=== PATIENT | female | born 1955 | race African-American/Black ===

== ENCOUNTER 2016-09-24 15:00 | Inpatient (IN) ==
[2016-09-24] MEDS ORDERED: DILTIAZEM 50 MG/10 ML VIAL IV STA (15:19)
[2016-09-24] MEDS ORDERED: DILTIAZEM 100 MG VIAL.ADD IV ONE (15:22)
[2016-09-24] MEDS ORDERED: SODIUM CHLORIDE 0.9% 100 ML IV ONE (15:23)
[2016-09-24] MEDS ORDERED: SODIUM CHLORIDE 0.9% 1,000 ML IV STA (15:25)
[2016-09-24] MEDS ORDERED: DILTIAZEM 50 MG/10 ML VIAL IV ONE (15:29)
[2016-09-24] MEDS: DILTIAZEM INJ 100 MG in SODIUM CHLORIDE 0.9% 100 ML IV SCH (16:05)
[2016-09-24] MEDS ORDERED: ONDANSETRON 4 MG/2 ML VIAL IV PRN (16:36)
[2016-09-24] MEDS ORDERED: ZALEPLON 5 MG CAPSULE PO PRN (16:36)
[2016-09-24] MEDS ORDERED: GLUCAGON 1 MG VIAL IM PRN (16:36)
[2016-09-24] MEDS ORDERED: DEXTROSE 50% 25 GM/50 ML VIAL IV PRN (16:36)
--- NOTE | 2016-09-24 16:47 | Hospitalist History & Physical ---
Assessment and Plan (1) Palpitations Status: Acute Current Visit: No (2) Atrial fibrillation with rapid ventricular response Problem details: Chemically converted to NSR after receiving IV diltiazem. Supervisor [employer] consulted Status: Acute Assessment and plan: Currently on Cardizem infusion. Will continue with home medications. As per cardiology consult. Echocardiogram. Serial cardiac enzymes. Current Visit: No (3) Diabetes Status: Chronic Assessment and plan: Mild sliding scale insulin. Continue home medications. Current Visit: No Qualifiers: Diabetes mellitus type: type 2 (4) Diabetic nephropathy Status: Chronic Current Visit: No (5) Essential hypertension Problem details: Suboptimal but improving control Med dose adjustments as directed by consulting hot repairman Status: Chronic Assessment and plan: History of hypertension will continue antihypertensive medications. We will check TSH T4 level. Current Visit: No History of Present Illness Chief complaint: Shortness of breath, tachycardia History of present illness: Ms. Braga is a 61 year old female with history of hypertension diabetes who is followed by Dr. Barraza and primary care. The patient states that for the past 3-4 days she has not taken her minoxidil due to the side effects of increased hair growth. On today she noticed that she was started to feel hot and broke out in pulses with early earlier this afternoon. She states that her heart was racing and she could not breathe. She was not getting relief with sitting down resting. At that time she drove herself to the hospital for further evaluation. There she was found to be in atrial fibrillation with an RVR pattern. Patient was suddenly started on Cardizem infusion heart rate is continued to improve. She states she does not remember this ever happening before. Moreover, she mentions that last year she had a heart cath at [place] under Dr. Husain in preparation for a knee surgery. There is been no history of fevers or chills. No other changes in her medications other than discontinuing the minoxidil. Home Medications Medication Instructions Recorded Confirmed Type Carvedilol [Coreg] 25 mg PO BID #60 tablet 03/04/15 09/24/16 Rx Atorvastatin Calcium 20 mg PO QPM 09/24/16 09/24/16 History Furosemide Tab [Lasix Tab] 20 mg PO DAILY PRN 09/24/16 09/24/16 History Glimepiride 2 mg PO BID 09/24/16 09/24/16 History HYDROcodone/ACETAMIN 10-325 [[place] 1 tablet PO TID PRN 09/24/16 09/24/16 History 10-325] Insulin Degludec [Tresiba 50 unit SUBCUT DAILY 09/24/16 09/24/16 History Flextouch U-200] Linaclotide [Linzess] 145 mcg PO DAILY 09/24/16 09/24/16 History Liraglutide [Victoza 2-Tong] 6 units SUBCUT DAILY 09/24/16 09/24/16 History Potassium Chloride 10 meq PO DAILY 09/24/16 09/24/16 History amLODIPine [Norvasc] 5 mg PO DAILY 09/24/16 09/24/16 History predniSONE TAB [PredniSONE] 10 mg PO DAILY 09/24/16 09/24/16 History Allergies Allergy/AdvReac Type Severity Reaction Status Date / Time No Known Allergies Allergy Unverified 03/02/15 20:14 Medical,Surgical,& Family Hx - Medical History Cardio: History of: Cardiac Dysrhythmia (a fib (Feb 2015)), Hypertension No history of: CHF, CAD, [place], Pacemaker, PVD, Valvular Heart Disease, Cardiovascular Problems Neurology: History of: Peripheral Neuropathy Endocrine: History of: Diabetes Mellitus (IDDM), Diabetes Mellitus (NIDDM), Dyslipidemia Respiratory: History of: Pulmonary Embolism Musculoskeletal: History of: Back/Neck Problems - Surgical History Cardiac Surgeries: Sugical HX of: Cardiac Catheterization (Feb 2015 ([place])) Patient Denies: Femoral-Popliteal Bypass Graft, Cardiac Surgery, Carotid Endarterectomy, Internal Defibrillator, Vascular Access Devices Thoracic Surgeries: Patient denies;: Lobectomy Neurologic Surgeries: Patient denies: Neurologic Surgery HEENT Surgeries: Patient denies: Carotid Endarterectomy Abdominal Surgeries: Patient denies: Splenectomy Orthopedic Surgeries: Surgical HX of;: Orthopedic Surgery, Total Knee Replacement (2014) - Family History Family History: Reports;: Family Diabetes - Social History Smoking Status: Unknown if ever smoked Frequency of Alcohol Use: None Type of Drug Use: None - Constitutional Constitutional: Present: fatigue. Absent: anorexia, chills - EENT Nose, mouth and throat: Absent: dysphagia, epistaxis - Cardiovascular Cardiovascular: Absent: chest pain at rest - Respiratory Respiratory: Present: dyspnea. Absent: cough - Gastrointestinal Gastrointestinal: Absent: abdominal pain, bloating - Genitourinary Genitourinary: Absent: dysuria, flank pain - Musculoskeletal Musculoskeletal: Absent: arthralgias - Hematologic/Lymphatic Hematologic/Lymphatic: Absent: easy bleeding Exam - Constitutional Vitals: Period Temp Pulse Resp BP Sys/Wooten Pulse Ox Last 24 Hr 98.5 F-98.5 F 124-124 18-18 163-163/112-112 98 General appearance: normal weight - Head Head exam: Present: normal inspection - Eye Eye exam: Present: EOMI Pupils: Present: DEEPIKA - ENT ENT exam: Present: normal exam - Neck Neck exam: Present: normal inspection - Respiratory Respiratory exam: Present: clear to auscultation bilaterally - Cardiovascular Cardiovascular exam: Present: irregular rhythm, tachycardia - GI/Abdominal GI/Abdominal exam: Present: normal bowel sounds - Extremities Exam Extremities exam: Present: normal inspection - Neurological Exam Neurological exam: Present: alert, oriented X3 - Psychiatric Psychiatric exam: Present: normal affect, normal mood - Skin Skin exam: Present: normal color, dry
--- NOTE | 2016-09-24 16:56 | Emergency Department Note ---
Abdirahman Singer Brooke, am scribing for, and in the presence of, Salomon Emmanuel MD 15:21. Lien Singer Hans, MD, personally performed the services described in this documentation, ascribed by Stephanie Gary in my presence, and it is both accurate and complete 656 . 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 pt has new onset afib Mode of Arrival: Stretcher Limitations: No Limitations Source: Patient, EMS, RN Notes Reviewed Time Seen by Provider: 09/24/16 15:14 - History of Present Illness HPI Narrative: Patient is a 61 year old female brought into the ED by EMS, from [facility] , with c/o heart fluttering. Patient describes this as "when you exercise and your heart races." She says the fluttering started about four hours prior to arrival at [facility]. She has a history of afib. Patient denies having any pain but she says she has been short of breath. She says she had a heart cath done, here, last year but she is unable to recall the exact time. Patient says she had a blockage about seven years ago. She also has PMHx of HTN, peripheral neuropathy, dyslipidemia, diabetes, pulmonary embolism, and back/neck problems. Patient is not a smoker. She says her blood sugar was elevated to 335 and blood pressure was 225/125 this morning. Onset (ago): hour(s) (4) Allergies/Adverse Reactions: Allergies Allergy/AdvReac Type Severity Reaction Status Date / Time No Known Allergies Allergy Unverified 03/02/15 20:14 Home Medications: Home Medications Medication Instructions Recorded Confirmed Type Carvedilol [Coreg] 25 mg PO BID #60 tablet 03/04/15 09/24/16 Rx Atorvastatin Calcium 20 mg PO QPM 09/24/16 09/24/16 History Furosemide Tab [Lasix Tab] 20 mg PO DAILY PRN 09/24/16 09/24/16 History Glimepiride 2 mg PO BID 09/24/16 09/24/16 History HYDROcodone/ACETAMIN 10-325 [[place] 1 tablet PO TID PRN 09/24/16 09/24/16 History 10-325] Insulin Degludec [Tresiba 50 unit SUBCUT DAILY 09/24/16 09/24/16 History Flextouch U-200] Linaclotide [Linzess] 145 mcg PO DAILY 09/24/16 09/24/16 History Liraglutide [Victoza 2-Tong] 6 units SUBCUT DAILY 09/24/16 09/24/16 History Potassium Chloride 10 meq PO DAILY 09/24/16 09/24/16 History amLODIPine [Norvasc] 5 mg PO DAILY 09/24/16 09/24/16 History predniSONE TAB [PredniSONE] 10 mg PO DAILY 09/24/16 09/24/16 History Medical,Surgical,& Family Hx - Medical History Cardio: History of: Cardiac Dysrhythmia (a fib (Feb 2015)), Hypertension No history of: CHF, CAD, [place], Pacemaker, PVD, Valvular Heart Disease, Cardiovascular Problems Neurology: History of: Peripheral Neuropathy Endocrine: History of: Diabetes Mellitus (IDDM), Diabetes Mellitus (NIDDM), Dyslipidemia Respiratory: History of: Pulmonary Embolism Musculoskeletal: History of: Back/Neck Problems - Surgical History Cardiac Surgeries: Sugical HX of: Cardiac Catheterization (Feb 2015 ([place])) Patient Denies: Femoral-Popliteal Bypass Graft, Cardiac Surgery, Carotid Endarterectomy, Internal Defibrillator, Vascular Access Devices Thoracic Surgeries: Patient denies;: Lobectomy Neurologic Surgeries: Patient denies: Neurologic Surgery HEENT Surgeries: Patient denies: Carotid Endarterectomy Abdominal Surgeries: Patient denies: Splenectomy Orthopedic Surgeries: Surgical HX of;: Orthopedic Surgery, Total Knee Replacement (2014) - Family History Family History: Reports;: Family Diabetes - Social History Smoking Status: Unknown if ever smoked Frequency of Alcohol Use: None Type of Drug Use: None Exam Vital Signs: Vital Signs Temperature 98.5 F 09/24/16 15:05 Pulse Rate 124 H 09/24/16 15:05 Respiratory Rate 18 09/24/16 15:05 Blood Pressure 163/112 09/24/16 15:05 O2 Sat by Pulse Oximetry 98 09/24/16 15:05 - General General appearance: alert, in no apparent distress - Head Head exam: Present: atraumatic, normocephalic - Eye Eye exam: Present: normal appearance, PERRL, EOMI - ENT ENT exam: Present: normal exam - Neck Neck exam: Present: normal inspection - Chest Chest inspection: Present: normal inspection, symmetric chest wall rise - Respiratory Respiratory exam: Present: normal lung sounds bilaterally - Cardiovascular Cardiovascular exam: Present: regular rate, irregular rhythm, normal heart sounds - Abdominal Exam Abdominal exam: Present: soft. Absent: distention, tenderness - Extremities Exam Extremities exam: Present: normal inspection - Back Exam Back exam: Present: normal inspection - Neurological Exam Neurological exam: Present: alert, oriented X3 - Psychiatric Psychiatric exam: Present: normal affect, normal mood - Skin Skin exam: Present: warm, dry, intact, normal color Course Course Narrative: This patient was evaluated in the ER with a repeat set of cardiac enzymes which still have not been drawn yet. She had elevated d-dimer and troponin was mildly elevated outside hospital. I discussed her new onset A. fib with mild troponin and d-dimer elevation with hospitalist who agreed to come see her for admission. She was placed on a Cardizem infusion in the ER. She is hemodynamically stable. Disposition Clinical Impression: Atrial fibrillation, Palpitations Case discussed with: patient, patient's family Disposition: Still a Patient Condition: Stable Time of Disposition: 16:56
[2016-09-24] MEDS ORDERED: ENOXAPARIN 40 MG/0.4 ML SYRINGE SUBCUT SCH (17:00)
[2016-09-24 18:41] LABS: Basophils % 0.4 % (0.0-0.8); Eosinophils # 0.1 10*3/uL (0.0-0.87); Eosinophils % 0.7 % (0.00-10.9); Hematocrit 38.7 VOL% (35.7-47.0); Hemoglobin 13.2 GM/DL (12.0-16.0); Immature Granulocytes % 0.7 %; Immature Granulocytes Absolute 0.08 #; Lymphocytes # 2.2 10*3/uL (1.4-4.0); Lymphocytes % 19.9 % (21.3-54.2); Mean Corpuscular HGB Conc 34.1 GM/DL (32-36); Mean Corpuscular Hemoglobin 27 PG (27-34); Mean Corpuscular Volume 79.1 FL (87-102); Mean Platelet Volume 10.6 FL (9.6-12.0); Monocytes # 0.5 10*3/uL (0.11-0.8); Monocytes % 4.5 % (1.7-12.7); Neutrophils # 8.3 10*3/uL (1.4-7.4); Neutrophils % 73.8 % (38.7-73.9); Platelet Count 266 T/CUMM (130-400); Red Blood Count 4.89 MC/CUMM (3.8-5.5); Red Cell Distribution Width 13.6 % (9.3-17.3); White Blood Count 11.2 T/CUMM (4-12)
[2016-09-24 18:53] LABS: CKMB % 7.7 %
[2016-09-24 18:57] LABS: Troponin I Only 0.303 NG/ML (0.00-0.045)
[2016-09-24] MEDS ORDERED: ATORVASTATIN 20 MG TABLET PO SCH (19:00)
[2016-09-24 19:01] LABS: Calcium 9.6 MG/DL (8.5-10.1); Free T4 (Free Thyroxine) 1.22 NG/DL (0.76-1.46); Osmolality,Calculated 301.1 MOS/KG (273-304); Potassium 3.7 MMOL/L (3.5-5.1)
[2016-09-24] MEDS: CARVEDILOL 25 MG TABLET PO SCH (20:43)
[2016-09-24] MEDS: GLIMEPIRIDE 2 MG TABLET PO SCH (20:43)
[2016-09-24] MEDS: INSULIN REGULAR 100 UNIT/ML SUBCUT SCH (20:43)
[2016-09-24] MEDS: SODIUM CHLORIDE 0.45% 1,000 ML IV SCH (22:30)
[2016-09-25] MEDS: DILTIAZEM INJ 100 MG in SODIUM CHLORIDE 0.9% 100 ML IV SCH (02:12)
[2016-09-25 05:02] LABS: Basophils # 0.1 10*3/uL (0.0-0.2); Basophils % 0.5 % (0.0-0.8); Eosinophils # 0.2 10*3/uL (0.0-0.87); Eosinophils % 2.4 % (0.00-10.9); Hematocrit 35.6 VOL% (35.7-47.0); Hemoglobin 11.8 GM/DL (12.0-16.0); Immature Granulocytes % 0.4 %; Immature Granulocytes Absolute 0.04 #; Lymphocytes # 3.1 10*3/uL (1.4-4.0); Lymphocytes % 32.7 % (21.3-54.2); Mean Corpuscular HGB Conc 33.1 GM/DL (32-36); Mean Corpuscular Hemoglobin 26 PG (27-34); Mean Corpuscular Volume 78.9 FL (87-102); Mean Platelet Volume 10.8 FL (9.6-12.0); Monocytes # 0.7 10*3/uL (0.11-0.8); Monocytes % 7.9 % (1.7-12.7); Neutrophils # 5.2 10*3/uL (1.4-7.4); Neutrophils % 56.1 % (38.7-73.9); Platelet Count 247 T/CUMM (130-400); Red Blood Count 4.51 MC/CUMM (3.8-5.5); Red Cell Distribution Width 13.7 % (9.3-17.3); White Blood Count 9.3 T/CUMM (4-12)
[2016-09-25 05:36] LABS: Calcium 8.8 MG/DL (8.5-10.1); Osmolality,Calculated 294.8 MOS/KG (273-304); Potassium 3.6 MMOL/L (3.5-5.1)
[2016-09-25] MEDS: SODIUM CHLORIDE 0.45% 1,000 ML IV SCH (06:40)
[2016-09-25 08:15] VITALS: BP 187/95
[2016-09-25] MEDS: INSULIN REGULAR 100 UNIT/ML SUBCUT SCH (08:21)
[2016-09-25] MEDS ORDERED: NON-FORMULARY MEDICATION (Insulin Degludec [Tresiba Flextouch U-200] 50 UNIT) SUBCUT SCH (09:00)
[2016-09-25] MEDS ORDERED: amLODIPine 5 MG TABLET PO SCH (09:00)
[2016-09-25] MEDS: CARVEDILOL 25 MG TABLET PO SCH (09:00)
[2016-09-25] MEDS ORDERED: predniSONE 10 MG TABLET PO SCH (09:00)
[2016-09-25] MEDS: GLIMEPIRIDE 2 MG TABLET PO SCH (09:00)
[2016-09-25] MEDS ORDERED: LIRAGLUTIDE 6 UNIT SUBCUT SCH (09:00)
[2016-09-25] MEDS ORDERED: LINACLOTIDE 145 MCG CAPSULE PO SCH (09:00)
--- NOTE | 2016-09-25 10:30 | Cardiology Consult Note ---
Assessment and Plan (1) Atrial fibrillation with rapid ventricular response Problem details: Chemically converted to NSR after receiving IV diltiazem. Metal Drill Press Operator consulted Status: Resolved Assessment and plan: This is resolved at this point. Think chronic medical therapy be appropriate. Allergy to oral diltiazem. She may need other antiarrhythmic but we will leave this to Dr. Husain who has been following the patient. She should be to be discharged today. Current Visit: No (2) Essential hypertension Problem details: Suboptimal but improving control Med dose adjustments as directed by consulting air intercept controller supervisor Status: Chronic Assessment and plan: Patient blood pressure elevated but we need to restart her blood pressure medications. Current Visit: No (3) IDDM (insulin dependent diabetes mellitus) Status: Chronic Assessment and plan: Primary service is monitoring this and Dr. Barraza follows her as an outpatient. Current Visit: No (4) Paroxysmal a-fib Status: Chronic Assessment and plan: This is by history. Current Visit: No History of Present Illness - Data of Consult Patient: new to practice Consult date: 09/25/16 Requesting Physician: Gisele Villarreal Primary care physician: Abida Barraza - Consult Narrative Reason for consult: Atrial fibrillation with RVR History of present illness: Ms. Braga is a 61 year old female whose primary physician is Dr. Barraza and her primary air intercept controller supervisor is Dr. Husain. She states that Dr. Husain function for hypertension. Patient was admitted with palpitations found to have atrial fibrillation with RVR. There is only telemetry strips and no ECG. The patient denied any chest pain did feel short of breath. She is placed on diltiazem infusion is converted to sinus rhythm. She states recently been having a cough and probably a viral upper respiratory tract type infections. She has had shots including steroids antibiotics and other medication for congestion. She does not think that she has been on any decongestants. She denies any prior history of atrial fibrillation but prior cardiology notes from here a year ago indicates that she has a history of paroxysmal atrial fibrillation and in fact was admitted one time with bradycardia secondary to severe and acute hyperkalemia and acute renal sufficiency. She had a cardiac catheterization a year and a half ago because of some paroxysmal atrial fibrillation and chest discomfort and trivial increased troponin. Her catheterization did not reveal any obstructive coronary disease. She has a chronic a persistently minimally and not diagnostically increased troponin. Certainly previously and as well with this admission her troponin could be trivially increased because of her rapid ventricular response with atrial fibrillation. The patient at present is clinically stable. She did stop her minoxidil recently. Her blood pressure is elevated now. I think we can place the patient on some low-dose diltiazem with her present medical regimen but stop her amlodipine which is at 5 mg daily. She can keep her follow with Dr. Husain. CC: Gisele Villarreal MD - Home Medications and Allergies Home Medications: Home Medications Medication Instructions Recorded Confirmed Type Carvedilol [Coreg] 25 mg PO BID #60 tablet 03/04/15 09/24/16 Rx Atorvastatin Calcium 20 mg PO QPM 09/24/16 09/24/16 History Furosemide Tab [Lasix Tab] 20 mg PO DAILY PRN 09/24/16 09/24/16 History Glimepiride 2 mg PO BID 09/24/16 09/24/16 History HYDROcodone/ACETAMIN 10-325 [[place] 1 tablet PO TID PRN 09/24/16 09/24/16 History 10-325] Insulin Degludec [Tresiba 50 unit SUBCUT DAILY 09/24/16 09/24/16 History Flextouch U-200] Linaclotide [Linzess] 145 mcg PO DAILY 09/24/16 09/24/16 History Liraglutide [Victoza 2-Tong] 6 units SUBCUT DAILY 09/24/16 09/24/16 History Potassium Chloride 10 meq PO DAILY 09/24/16 09/24/16 History amLODIPine [Norvasc] 5 mg PO DAILY 09/24/16 09/24/16 History predniSONE TAB [PredniSONE] 10 mg PO DAILY 09/24/16 09/24/16 History Allergies/Adverse Reactions: Allergies Allergy/AdvReac Type Severity Reaction Status Date / Time No Known Allergies Allergy Unverified 03/02/15 20:14 Review of systems: Constitutional: Denies anorexia, chills, fatigue, fever, frequent falls, night sweats, weight gain, weight loss Eyes: Denies visual changes or loss of vision Ears: Denies decreased hearing, vertigo Nose, mouth and throat: Denies dysphagia, epistaxis, headaches, neck pain, tongue swelling, Neck: Denies thyromegaly or masses. No stiffness. Cardiovascular: as per HPI Respiratory: Complains of recent coughing and congestion. Denies dyspnea, hemoptysis, dyspnea on exertion, wheezing, snoring Gastrointestinal: Denies abdominal pain, constipation, dyspepsia, dysphagia, hematemesis, hematochezia, melena, nausea, vomiting Genitourinary: Denies dysuria, hematuria, nocturia Musculoskeletal: Denies arthralgias, joint swelling, muscle weakness, myalgias Neurological: denies abnormal gait, abnormal speech, confusion, convulsions, frequent falls, headaches, memory loss, syncope Psychiatric: Denies anxiety, confusion, depression Endocrine: Denies cold intolerance, fatigue, heat intolerance Hematologic/Lymphatic: Denies easy bleeding, easy bruising Dermatologic: Denies Rash, itching, shingles Medical,Surgical,& Family Hx - Medical History Cardio: History of: Cardiac Dysrhythmia (a fib (Feb 2015)), Hypertension No history of: CHF, CAD, [place], Pacemaker, PVD, Valvular Heart Disease, Cardiovascular Problems Neurology: History of: Peripheral Neuropathy Endocrine: History of: Diabetes Mellitus (IDDM), Diabetes Mellitus (NIDDM), Dyslipidemia Respiratory: History of: Pulmonary Embolism Musculoskeletal: History of: Back/Neck Problems - Surgical History Cardiac Surgeries: Sugical HX of: Cardiac Catheterization (Feb 2015 ([place])) Patient Denies: Femoral-Popliteal Bypass Graft, Cardiac Surgery, Carotid Endarterectomy, Internal Defibrillator, Vascular Access Devices Thoracic Surgeries: Patient denies;: Lobectomy Neurologic Surgeries: Patient denies: Neurologic Surgery HEENT Surgeries: Patient denies: Carotid Endarterectomy Abdominal Surgeries: Patient denies: Splenectomy Orthopedic Surgeries: Surgical HX of;: Orthopedic Surgery, Total Knee Replacement (2014) - Family History Family History: Reports;: Family Diabetes - Social History Smoking Status: Never smoker Frequency of Alcohol Use: None Type of Drug Use: None Physical Examination Vital Signs Temp Pulse Resp BP Pulse Ox 98.5 F 124 H 18 163/112 98 09/24/16 15:05 09/24/16 15:05 09/24/16 15:05 09/24/16 15:05 09/24/16 15:05 Other: General appearance: Obese, no acute distress Head exam: normal inspection, atraumatic Eye exam: Pupils are equal and reactive. EOMI. There is no trauma. Ear exam: Anatomically normal. Normal auditory acuity to conversation. Oral exam: No significant oral lesions. Neck exam: normal inspection no JVD. No carotid bruit. Trachea is in midline. Respiratory exam: clear to auscultation bilaterally posteriorly and anteriorly with good air movement. No rales, rhonchi or wheezes. Cardiovascular exam: regular rate and rhythm, no murmur or gallop or rub. No precordial lift. No bruits over the major arteries. Chest wall/torso: Anatomically normal. No tenderness, deformity Peripheral Pulses: 2+ throughout. GI/Abdominal exam: normal bowel sounds, soft and nontender, no abdominal bruits or pulsatile masses. Musculoskeletal/Extremities exam: normal inspection without edema or cyanosis. No deformities or trauma. Neurological exam: alert, oriented X3. There is no gross neurologic deficits. Psychiatric exam: normal affect, normal mood. Cognitive function is grossly intact. Skin exam: normal color, warm. No rashes or other skin lesions. Result/EKG - Labs CBC & BMP: 09/25/16 04:45 09/25/16 04:45 Lab Results: I have reviewed the past 24 hour labs Labs: Laboratory Results - last 24 hr 09/24/16 09/24/16 09/24/16 17:40 17:40 18:25 WBC 11.2 RBC 4.89 Hgb 13.2 Hct 38.7 MCV 79.1 L MCH 27 MCHC 34.1 RDW 13.6 Plt Count 266 MPV 10.6 Neut % (Auto) 73.8 Lymph % (Auto) 19.9 L [place] % (Auto) 4.5 Eos % (Auto) 0.7 Baso % (Auto) 0.4 Neut # (Auto) 8.3 H Lymph # (Auto) 2.2 [place] # (Auto) 0.5 Eos # (Auto) 0.1 Baso # (Auto) 0.0 Immature Gran % 0.7 Nucleated RBC % 0.0 Immature Gran # 0.08 Nucleated RBCs # 0.00 Sodium 142 Potassium 3.7 Chloride 107 Carbon Dioxide 22 Anion Gap 16.7 H BUN 38 H Creatinine 1.80 H GFR Calculation 42 BUN/Creatinine Ratio 21.00 H Glucose 272 H POC Glucose Calculated Osmolality 301.1 Calcium 9.6 Total Creatine Kinase 83 CK-MB (CK-2) 6.4 H CK and CKMB Interp 7.7 Troponin I 0.303 H Free T4 1.22 09/24/16 09/25/16 09/25/16 20:03 04:45 04:45 WBC 9.3 RBC 4.51 Hgb 11.8 L Hct 35.6 L MCV 78.9 L MCH 26 L MCHC 33.1 RDW 13.7 Plt Count 247 MPV 10.8 Neut % (Auto) 56.1 Lymph % (Auto) 32.7 [place] % (Auto) 7.9 Eos % (Auto) 2.4 Baso % (Auto) 0.5 Neut # (Auto) 5.2 Lymph # (Auto) 3.1 [place] # (Auto) 0.7 Eos # (Auto) 0.2 Baso # (Auto) 0.1 Immature Gran % 0.4 Nucleated RBC % 0.0 Immature Gran # 0.04 Nucleated RBCs # 0.00 Sodium 144 Potassium 3.6 Chloride 109 H Carbon Dioxide 25 Anion Gap 13.6 BUN 40 H Creatinine 1.70 H GFR Calculation 44 BUN/Creatinine Ratio 23.00 H Glucose 80 POC Glucose 243 H Calculated Osmolality 294.8 Calcium 8.8 Total Creatine Kinase CK-MB (CK-2) CK and CKMB Interp Troponin I Free T4 09/25/16 07:36 WBC RBC Hgb Hct MCV MCH MCHC RDW Plt Count MPV Neut % (Auto) Lymph % (Auto) [place] % (Auto) Eos % (Auto) Baso % (Auto) Neut # (Auto) Lymph # (Auto) [place] # (Auto) Eos # (Auto) Baso # (Auto) Immature Gran % Nucleated RBC % Immature Gran # Nucleated RBCs # Sodium Potassium Chloride Carbon Dioxide Anion Gap BUN Creatinine GFR Calculation BUN/Creatinine Ratio Glucose POC Glucose 71 L Calculated Osmolality Calcium Total Creatine Kinase CK-MB (CK-2) CK and CKMB Interp Troponin I Free T4 - Impressions Impressions: Admission telemetry revealed atrial fibrillation with rapid ventricular response. Her telemetry now reveals normal sinus rhythm.
--- NOTE | 2016-09-25 10:39 | Discharge Summary ---
Hospital Course - Hospital Course Hospital Course: Ms. Braga is a 61-year-old -[place] female with history of hypertension, A. fib and diabetes admitted by the hospitalist service on 2016 with A. fib with RVR. She was started on IV Cardizem and has converted. Cardiology was consulted and he added diltiazem to her regimen of low-dose beta- brina and Eliquis. Patient has seen Dr. Husain at [place] before but states she wants to change to [facility] since she is a Dr. Barraza patient. Patient will be discharged home with a one-week follow-up with Dr. Salas. Patient is requesting somebody who can do something about her abnormal rhythms. Patient's care was coordinated with Dr. Villarreal the hospitalist, Dr. Estes the cane packer , patient and nursing. Care coordination, chart review, and discharge paperwork took approximately 33 minutes. - Time spent with patient Time with patient DS: Greater than 30 minutes Discharge Plan - Discharge Data Disposition: Disch To Home/Self Care Condition at Discharge: Stable Discharge Diet: advance to your usual diet Activity: resume usual activities as tolerated Contact your physician if you experience:: Shortness of breath - Discharge Medications New Diltiazem Cd Cap [Cardizem CD] 180 mg PO DAILY #60 capsule Continue Carvedilol [Coreg] 25 mg PO BID #60 tablet Potassium Chloride 10 meq PO DAILY amLODIPine [Norvasc] 5 mg PO DAILY Linaclotide [Linzess] 145 mcg PO DAILY predniSONE TAB [PredniSONE] 10 mg PO DAILY Furosemide Tab [Lasix Tab] 20 mg PO DAILY PRN PRN Reason: FLUID Liraglutide [Victoza 2-Tong] 6 units SUBCUT DAILY Atorvastatin Calcium 20 mg PO QPM Insulin Degludec [Tresiba Flextouch U-200] 50 unit SUBCUT DAILY HYDROcodone/ACETAMIN 10-325 [[place] 10-325] 1 tablet PO TID PRN PRN Reason: Pain Glimepiride 2 mg PO BID - Follow Up or Referral Follow Up: Benjamin Salas MD [Physician] - 1 Week Abida Barraza M.D. [Physician] - 2 Weeks - Forms/Instructions Exam - Constitutional Vitals: Period Temp Pulse Resp BP Sys/Wooten Pulse Ox Last 24 Hr 96.7 F-99.2 F 75-132 16-20 140-187/83-115 96-99 Exam: 61-year-old -[place] female, no acute distress, alert and oriented Chest clear CV regular rate and rhythm Abdomen soft nontender Extremities no edema Discharge Results Procedures and tests throughout hospitalization: Pending Orders 09/24/16 15:19 VQ Scan [NM lung scan vent and per] Stat Labs on day of discharge: Labs from last 24 hours 09/25/16 09/25/16 09/25/16 07:36 04:45 04:45 WBC 9.3 RBC 4.51 Hgb 11.8 L Hct 35.6 L MCV 78.9 L MCH 26 L MCHC 33.1 RDW 13.7 Plt Count 247 MPV 10.8 Neut % (Auto) 56.1 Lymph % (Auto) 32.7 [place] % (Auto) 7.9 Eos % (Auto) 2.4 Baso % (Auto) 0.5 Neut # (Auto) 5.2 Lymph # (Auto) 3.1 [place] # (Auto) 0.7 Eos # (Auto) 0.2 Baso # (Auto) 0.1 Immature Gran % 0.4 Nucleated RBC % 0.0 Immature Gran # 0.04 Nucleated RBCs # 0.00 Sodium 144 Potassium 3.6 Chloride 109 H Carbon Dioxide 25 Anion Gap 13.6 BUN 40 H Creatinine 1.70 H GFR Calculation 44 BUN/Creatinine Ratio 23.00 H Glucose 80 POC Glucose 71 L Calculated Osmolality 294.8 Calcium 8.8 Total Creatine Kinase CK-MB (CK-2) CK and CKMB Interp Troponin I Free T4 09/24/16 09/24/16 09/24/16 20:03 18:25 17:40 WBC 11.2 RBC 4.89 Hgb 13.2 Hct 38.7 MCV 79.1 L MCH 27 MCHC 34.1 RDW 13.6 Plt Count 266 MPV 10.6 Neut % (Auto) 73.8 Lymph % (Auto) 19.9 L [place] % (Auto) 4.5 Eos % (Auto) 0.7 Baso % (Auto) 0.4 Neut # (Auto) 8.3 H Lymph # (Auto) 2.2 [place] # (Auto) 0.5 Eos # (Auto) 0.1 Baso # (Auto) 0.0 Immature Gran % 0.7 Nucleated RBC % 0.0 Immature Gran # 0.08 Nucleated RBCs # 0.00 Sodium 142 Potassium 3.7 Chloride 107 Carbon Dioxide 22 Anion Gap 16.7 H BUN 38 H Creatinine 1.80 H GFR Calculation 42 BUN/Creatinine Ratio 21.00 H Glucose 272 H POC Glucose 243 H Calculated Osmolality 301.1 Calcium 9.6 Total Creatine Kinase CK-MB (CK-2) CK and CKMB Interp Troponin I Free T4 1.22 09/24/16 17:40 WBC RBC Hgb Hct MCV MCH MCHC RDW Plt Count MPV Neut % (Auto) Lymph % (Auto) [place] % (Auto) Eos % (Auto) Baso % (Auto) Neut # (Auto) Lymph # (Auto) [place] # (Auto) Eos # (Auto) Baso # (Auto) Immature Gran % Nucleated RBC % Immature Gran # Nucleated RBCs # Sodium Potassium Chloride Carbon Dioxide Anion Gap BUN Creatinine GFR Calculation BUN/Creatinine Ratio Glucose POC Glucose Calculated Osmolality Calcium Total Creatine Kinase 83 CK-MB (CK-2) 6.4 H CK and CKMB Interp 7.7 Troponin I 0.303 H Free T4 DS: Provider Date of admission: 09/24/16 15:27 Primary care physician: . No PCP Attending physician on admission: Carlos Zafar Jr., MD Consults: 09/24/16 16:36 Consult to Physician [CONS] Routine Comment: afib with RVR Consulting Provider: Elmer Estes When should Consulting Provider be notified: Now Person Notified: EVELYNE Date Notified: 09/25/16 Time Notified: 08:27 09/24/16 19:18 Consult to [facility], Educator [CONS] Routine Reason for Asset Protection Assistant: Diabetes Education Consult to Pastoral Services [CONS] Routine Comment: Pastoral Screen: Request Cancer Spec Visit Pastoral Screen Source of Request: Patient Discharging clinician: AZUL Cline Expected date of discharge: 09/25/16
[2016-09-25] MEDS ORDERED: DILTIAZEM CD 180 MG CAPSULE PO SCH (11:00)
--- NOTE | 2016-09-25 16:45 | EKG Report ---
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
== END 2016-09-25 12:10 | disposition home or self-care (01) | DRG 310 ==
LOC: EDBD → EDUNIT# → N.ED 15:00 → SUATTDRO 15:27 → N.EDINP 15:49 → N.TELEN 16:00
PROVIDERS: ADMIT Internal Medicine Nephrology; ATTEND Internal Medicine

== ENCOUNTER 2016-11-10 21:50 | Observation (INO) ==
[2016-11-10] MEDS ORDERED: NITROGLYCERIN 2% OINT 1 INCH/GM PACK TOP STA (22:24)
[2016-11-10] MEDS ORDERED: METOPROLOL TARTRATE 5 MG/5 ML VIAL IV STA (22:25)
--- NOTE | 2016-11-10 22:28 | Emergency Department Note ---
Arrival - Arrival Chief Complaint: Arrhythmia/Palpitations Stated Complaint: Palpatations ED Nursing Triage Note: Pt transfer from [facility]. Mode of Arrival: Stretcher Limitations: No Limitations Source: Patient Time Seen by Provider: 11/10/16 22:23 - History of Present Illness HPI Narrative: This 61-year-old [place] female is referred from [facility] for evaluation of positive troponins in association with complaints of rapid heartbeat. The patient has a prior history of atrial fibrillation previously treated at this institution in September. The patient sensed return of this rhythm earlier today and for that reason went to [facility]. EKG at [place] revealed a sinus rhythm of 85 with evidence of an old anterior infarct and diffuse T-wave inversion. Patient was subsequently given Lovenox and Lasix and then transferred to this institution for further evaluation. Other notable lab revealed a proBNP of 2523. Currently the patient has only complaints of being hungry as she states she has not eaten all day. At no time did the patient have any complaints of chest pain, diaphoresis, nausea, vomiting, or shortness of breath Onset (ago): hour(s) (Patient presents 4 hours post onset of symptoms) Allergies/Adverse Reactions: Allergies Allergy/AdvReac Type Severity Reaction Status Date / Time losartan Allergy HIVES Unverified 11/10/16 22:01 Home Medications: Home Medications Medication Instructions Recorded Confirmed Type Carvedilol [Coreg] 25 mg PO BID #60 tablet 03/04/15 09/24/16 Rx Atorvastatin Calcium 20 mg PO QPM 09/24/16 09/24/16 History Furosemide Tab [Lasix Tab] 20 mg PO DAILY PRN 09/24/16 09/24/16 History Glimepiride 2 mg PO BID 09/24/16 09/24/16 History HYDROcodone/ACETAMIN 10-325 [[place] 1 tablet PO TID PRN 09/24/16 09/24/16 History 10-325] Insulin Degludec [Tresiba 50 unit SUBCUT DAILY 09/24/16 09/24/16 History Flextouch U-200] Linaclotide [Linzess] 145 mcg PO DAILY 09/24/16 09/24/16 History Liraglutide [Victoza 2-Tong] 6 units SUBCUT DAILY 09/24/16 09/24/16 History Potassium Chloride 10 meq PO DAILY 09/24/16 09/24/16 History amLODIPine [Norvasc] 5 mg PO DAILY 09/24/16 09/24/16 History predniSONE TAB [PredniSONE] 10 mg PO DAILY 09/24/16 09/24/16 History Diltiazem Cd Cap [Cardizem CD] 180 mg PO DAILY #60 capsule 09/25/16 Rx Review of System - Review of System 12 point system: reviewed and no additional remarkable complaints except as stated - Review of System Constitutional: Present: as per HPI Respiratory: Present: as per HPI Cardiovascular: Present: as per HPI Gastrointestinal: Present: as per HPI Medical,Surgical,& Family Hx - Medical History Cardio: History of: Cardiac Dysrhythmia (a fib (Feb 2015)), CHF, Hypertension No history of: CAD, [place], Pacemaker, PVD, Valvular Heart Disease, Cardiovascular Problems Neurology: History of: Peripheral Neuropathy Endocrine: History of: Diabetes Mellitus (IDDM), Diabetes Mellitus (NIDDM), Dyslipidemia Respiratory: History of: Pulmonary Embolism Musculoskeletal: History of: Back/Neck Problems - Surgical History Cardiac Surgeries: Sugical HX of: Cardiac Catheterization (Feb 2015 ([place])) Patient Denies: Femoral-Popliteal Bypass Graft, Cardiac Surgery, Carotid Endarterectomy, Internal Defibrillator, Vascular Access Devices Thoracic Surgeries: Patient denies;: Lobectomy Neurologic Surgeries: Patient denies: Neurologic Surgery HEENT Surgeries: Patient denies: Carotid Endarterectomy Abdominal Surgeries: Patient denies: Splenectomy Orthopedic Surgeries: Surgical HX of;: Orthopedic Surgery, Total Knee Replacement (2014) - Family History Family History: Reports;: Family Diabetes - Social History Smoking Status: Unknown if ever smoked Frequency of Alcohol Use: None Type of Drug Use: None Exam Physical Examination: GENERAL: Morbidly obese black female in no acute distress. HEENT: Normocephalic. No trauma. Moist mucous membranes. EOMI. PERRLA. ENT NML NECK: Supple. No adenopathy. CARDIAC: Regular. No murmurs. Heart rate 75 CHEST: Clear to auscultation. No respiratory distress. O2 sat 99% ABDOMEN: Soft. Nontender. Active bowel sounds. EXTREMITIES: No trauma. Normal ROM. No pedal edema. SKIN: No diaphoresis. No rash. NEURO: Alert. Neuro intact no focal deficits. Vital Signs: Vital Signs Temperature 97.6 F 11/10/16 21:56 Pulse Rate 83 11/10/16 21:56 Respiratory Rate 20 11/10/16 21:56 Blood Pressure 197/104 11/10/16 21:56 Course - Reevaluation(s) Reevaluation #1: Discussed with patient need to further define her cardiac situation - Consultations Consultation #1: Discussed with the hospitalist service who will admit for further evaluation. Results - Labs Labs: Initial results white blood cell count 8400 hematocrit 37 glucose 232 BUN 28 creatinine 2.0 sodium 144 potassium 4.3 CK total 95 MB total 3.7 proBNP 2523 troponin 0 0.4 - Impressions EKG: Sinus rhythm at 75 with evidence of old septal infarct as well as T-wave inversion inferolateral consistent with ischemia. Disposition Clinical Impression: Abnormal cardiac enzymes, Recent onset atrial fibrillation Case discussed with: patient Disposition: Still a Patient Condition: Guarded Time of Disposition: 22:47
[2016-11-10] MEDS ORDERED: METOPROLOL TARTRATE 5 MG/5 ML VIAL IV ONE (23:15)
[2016-11-10] MEDS ORDERED: NITROGLYCERIN 2% OINT 1 INCH/GM PACK TOP ONE (23:15)
[2016-11-10] MEDS ORDERED: DEXTROSE 50% 25 GM/50 ML SYRINGE IV PRN (23:31)
[2016-11-10] MEDS ORDERED: ONDANSETRON 4 MG/2 ML VIAL IV PRN (23:31)
[2016-11-10] MEDS ORDERED: GLUCAGON 1 MG VIAL IM PRN (23:31)
--- NOTE | 2016-11-10 23:43 | Hospitalist History & Physical ---
Assessment and Plan (1) Chronic kidney disease Status: Acute Current Visit: Yes (2) Palpitations Status: Acute Current Visit: No (3) Elevated troponin Status: Chronic Current Visit: No (4) IDDM (insulin dependent diabetes mellitus) Status: Chronic Current Visit: No (5) Paroxysmal a-fib Status: Chronic Assessment and plan: Our plan for this patient will be admitting her to telemetry. We will draw serial cardiac enzymes check fasting lipid profile and consult cardiology. Patient was given 100 mg of Lovenox at the outside facility. Patient is currently in sinus rhythm with stable vital signs. Patient has not complained of any shortness of breath or any chest pain. Current Visit: No History of Present Illness Chief complaint: Palpitations History of present illness: Ms. Braga is a 61 year old female with past medical history significant for diabetes hypertension atrial fibrillation and possible congestive heart failure she was in her normal state of health until today. Patient had sensation that her heart was beating very rapidly. She was not having chest pain she was not having shortness of breath she went to [facility]. There are an evaluation at [facility] and it was found that she had a bump in her troponins and was subsequently sent to our hospital for further evaluation. Home Medications Medication Instructions Recorded Confirmed Type Carvedilol [Coreg] 25 mg PO BID #60 tablet 03/04/15 09/24/16 Rx Atorvastatin Calcium 20 mg PO QPM 09/24/16 09/24/16 History Furosemide Tab [Lasix Tab] 20 mg PO DAILY PRN 09/24/16 09/24/16 History Glimepiride 2 mg PO BID 09/24/16 09/24/16 History HYDROcodone/ACETAMIN 10-325 [[place] 1 tablet PO TID PRN 09/24/16 09/24/16 History 10-325] Insulin Degludec [Tresiba 50 unit SUBCUT DAILY 09/24/16 09/24/16 History Flextouch U-200] Linaclotide [Linzess] 145 mcg PO DAILY 09/24/16 09/24/16 History Liraglutide [Victoza 2-Tong] 6 units SUBCUT DAILY 09/24/16 09/24/16 History Potassium Chloride 10 meq PO DAILY 09/24/16 09/24/16 History amLODIPine [Norvasc] 5 mg PO DAILY 09/24/16 09/24/16 History predniSONE TAB [PredniSONE] 10 mg PO DAILY 09/24/16 09/24/16 History Diltiazem Cd Cap [Cardizem CD] 180 mg PO DAILY #60 capsule 09/25/16 Rx Allergies Allergy/AdvReac Type Severity Reaction Status Date / Time losartan Allergy HIVES Unverified 11/10/16 22:01 Medical,Surgical,& Family Hx - Medical History Cardio: History of: Cardiac Dysrhythmia (a fib (Feb 2015)), CHF, Hypertension No history of: CAD, [place], Pacemaker, PVD, Valvular Heart Disease, Cardiovascular Problems Neurology: History of: Peripheral Neuropathy Endocrine: History of: Diabetes Mellitus (IDDM), Diabetes Mellitus (NIDDM), Dyslipidemia Respiratory: History of: Pulmonary Embolism Musculoskeletal: History of: Back/Neck Problems - Surgical History Cardiac Surgeries: Sugical HX of: Cardiac Catheterization (Feb 2015 ([place])) Patient Denies: Femoral-Popliteal Bypass Graft, Cardiac Surgery, Carotid Endarterectomy, Internal Defibrillator, Vascular Access Devices Thoracic Surgeries: Patient denies;: Lobectomy Neurologic Surgeries: Patient denies: Neurologic Surgery HEENT Surgeries: Patient denies: Carotid Endarterectomy Abdominal Surgeries: Patient denies: Splenectomy Orthopedic Surgeries: Surgical HX of;: Orthopedic Surgery, Total Knee Replacement (2014) - Family History Family History: Reports;: Family Diabetes - Social History Smoking Status: Unknown if ever smoked Frequency of Alcohol Use: None Type of Drug Use: None 12 point system: reviewed and no additional remarkable complaints except as stated Exam - Constitutional Vitals: Period Temp Pulse Resp BP Sys/Wooten Pulse Ox Last 24 Hr 97.6 F-97.6 F 83-83 20-20 197-197/104-104 General appearance: over weight - Head Head exam: Present: normal inspection - Eye Eye exam: Present: EOMI Pupils: Present: DEEPIKA - ENT ENT exam: Present: normal exam - Neck Neck exam: Present: normal inspection - Respiratory Respiratory exam: Present: clear to auscultation bilaterally - Cardiovascular Cardiovascular exam: Present: regular rate and rhythm - GI/Abdominal GI/Abdominal exam: Present: normal bowel sounds - Extremities Exam Extremities exam: Present: normal inspection, other (Mild edema in lower extremities) - Psychiatric Psychiatric exam: Present: normal affect - Skin Skin exam: Present: normal color Results - Labs Labs: Labs from outside facility displayed glucose 232 BUN 28 creatinine 2.0 calcium 9.5 serum sodium 144 potassium 4.3 chloride 108 bicarb 27 magnesium 1.7 pro BNP 2523 troponin I0.403 EKG at the outside facility displayed a sinus rhythm with Q waves noted in the anterior leads
[2016-11-11 00:15] LABS: Troponin I Only 0.369 NG/ML (0.00-0.045)
[2016-11-11] MEDS ORDERED: FUROSEMIDE 20 MG TABLET PO PRN (00:50)
[2016-11-11] MEDS: ACETAMINOPHEN 325 MG TABLET PO PRN (04:02)
[2016-11-11 04:46] LABS: Basophils # 0.1 10*3/uL (0.0-0.2); Basophils % 0.8 % (0.0-0.8); Eosinophils # 0.2 10*3/uL (0.0-0.87); Eosinophils % 2.5 % (0.00-10.9); Hematocrit 31.8 VOL% (35.7-47.0); Hemoglobin 10.9 GM/DL (12.0-16.0); Immature Granulocytes % 0.4 %; Immature Granulocytes Absolute 0.03 #; Lymphocytes # 2.8 10*3/uL (1.4-4.0); Lymphocytes % 34.8 % (21.3-54.2); Mean Corpuscular HGB Conc 34.3 GM/DL (32-36); Mean Corpuscular Hemoglobin 27 PG (27-34); Mean Corpuscular Volume 79.3 FL (87-102); Mean Platelet Volume 10.7 FL (9.6-12.0); Monocytes # 0.9 10*3/uL (0.11-0.8); Monocytes % 10.8 % (1.7-12.7); Neutrophils # 4.1 10*3/uL (1.4-7.4); Neutrophils % 50.7 % (38.7-73.9); Platelet Count 273 T/CUMM (130-400); Red Blood Count 4.01 MC/CUMM (3.8-5.5); Red Cell Distribution Width 13.7 % (9.3-17.3)
[2016-11-11 05:23] LABS: Alanine Aminotransferase 57 U/L (13-56); Albumin 2.8 G/DL (3.4-5.0); Alkaline Phosphatase 98 U/L (45-117); Aspartate Amino Transferase 41 U/L (0-37); Bilirubin,Total < 0.39 MG/DL (0.2-1.0); Blood Urea Nitrogen 27 MG/DL (7-18); Calcium 9.2 MG/DL (8.5-10.1); Glucose 124 MG/DL (74-106); Magnesium 1.8 MG/DL (1.8-2.4); Osmolality,Calculated 288.1 MOS/KG (273-304); Potassium 3.9 MMOL/L (3.5-5.1); Sodium 142 MMOL/L (136-145); Total Protein 5.6 G/DL (6.4-8.3)
[2016-11-11 05:28] LABS: Troponin I Only 0.364 NG/ML (0.00-0.045)
[2016-11-11 05:32] LABS: Risk Ratio 3.02; VLDL CHOLESTEROL 21.6 MG/DL
--- NOTE | 2016-11-11 06:20 | EKG Report ---
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
[2016-11-11] MEDS: INSULIN REGULAR 100 UNIT/ML SUBCUT SCH ×4 (08:07→22:02)
--- NOTE | 2016-11-11 11:13 | Hospitalist Progress Note ---
Assessment and Plan (1) Atrial fibrillation with rapid ventricular response Status: Resolved Current Visit: No (2) Elevated troponin Status: Acute Current Visit: No (3) Diabetes Status: Chronic Current Visit: Yes Qualifiers: Diabetes mellitus type: type 2 Diabetes mellitus complication status: with kidney complications Diabetes mellitus complication detail: with chronic kidney disease Diabetes mellitus retirement insulin use: without retirement use Chronic kidney disease stage: stage 3 (moderate) Qualified Code(s): E11.22 - Type 2 diabetes mellitus with diabetic chronic kidney disease; N18.3 - Chronic kidney disease, stage 3 (moderate) (4) Hypertension Status: Chronic Current Visit: No Qualifiers: Hypertension type: essential hypertension Qualified Code(s): I10 - Essential (primary) hypertension (5) Paroxysmal a-fib Status: Chronic Current Visit: No (6) Chronic kidney disease Status: Chronic Current Visit: Yes Qualifiers: Chronic kidney disease stage: stage 3 (moderate) Qualified Code(s): N18.3 - Chronic kidney disease, stage 3 (moderate) Hospitalist: Subjective Interval history: Patient seen and examined. No acute events overnight. Case discussed with nursing staff. Labs reviewed. Patient was admitted overnight with a recurrent paroxysmal atrial fibrillation and palpitations. She is awaiting cardiology consult. Symptoms have resolved. Previous admission one month ago reviewed. The patient reports her Cardizem dose was doubled to 360 mg twice daily by her primary care physician approximately 2 weeks ago. Exam - Constitutional Vitals: Period Temp Pulse Resp BP Sys/Wooten Pulse Ox Last 24 Hr 97.5 F-98.4 F 76-83 16-20 158-197/97-106 94-100 Exam: Constitutional System: No distress. No tremulousness. Head: Normocephalic, atraumatic. Ears, Nose and Throat System: No pain or tenderness. No epistaxis or discharge Eyes System: Pupils equal, round, and reactive. Extraocular muscles intact. Neck: Supple, without adenopathy, No jugular venous distention. No thyromegaly, neck mass, or prior surgery apparent. Respiratory System: Chest clear to auscultation. Cardiovascular System: Heart with regular rate and rhythm. No murmur. GI System: Abdomen soft, nontender. Normo active bowel sounds present. Musculoskeletal System: limbs with no pedal edema. Full distal pulses. Neurological System: No discernable sensory deficit. No aphasia Psychiatric System: Conversation is rational Results - Labs CBC & BMP: 11/11/16 03:55 11/11/16 03:55 Lab Results: I have reviewed the past 24 hour labs
[2016-11-11] MEDS: APIXABAN 5 MG TABLET PO SCH ×2 (14:46→22:00)
[2016-11-11] MEDS: POTASSIUM CHLORIDE 10 MEQ TABLET PO SCH (14:46)
[2016-11-11] MEDS: hydrALAZINE 25 MG TABLET PO SCH (14:47)
[2016-11-11] MEDS: PANTOPRAZOLE 40 MG TABLET PO SCH (14:47)
[2016-11-11] MEDS: DILTIAZEM CD 180 MG CAPSULE PO SCH (14:48)
[2016-11-11] MEDS: MINOXIDIL 2.5 MG TABLET PO SCH ×2 (14:48→22:02)
[2016-11-11] MEDS: CARVEDILOL 25 MG TABLET PO SCH ×2 (14:48→16:23)
[2016-11-11] MEDS: LINACLOTIDE 145 MCG CAPSULE PO SCH (14:49)
--- NOTE | 2016-11-11 17:24 | Cardiology Consult Note ---
Chaim Singer Vanessa, RN, am scribing for, and in the presence of, Marjan Gray MD 17:23. Assessment and Plan - Time spent with patient Time spent with patient: Greater than 30 minutes (Due to assessment, planning, documentation, medication review) (1) Atrial fibrillation Status: Chronic Assessment and plan: SEE PLAN OF CARE LISTED BELOW. Current Visit: No Qualifiers: Atrial fibrillation type: paroxysmal Qualified Code(s): I48.0 - Paroxysmal atrial fibrillation (2) DJD (degenerative joint disease) Problem details: h/o TKR ? IVC filter placement prior to TKR procedure [facility] Status: Chronic Assessment and plan: SEE PLAN OF CARE LISTED BELOW. Current Visit: No (3) Diabetes Status: Chronic Assessment and plan: SEE PLAN OF CARE LISTED BELOW. Current Visit: Yes Qualifiers: Diabetes mellitus type: type 2 Diabetes mellitus complication status: with kidney complications Diabetes mellitus complication detail: with chronic kidney disease Diabetes mellitus superintendent terminal insulin use: without mcfp use Chronic kidney disease stage: stage 3 (moderate) Qualified Code(s): E11.22 - Type 2 diabetes mellitus with diabetic chronic kidney disease; N18.3 - Chronic kidney disease, stage 3 (moderate) (4) Hypertension Status: Chronic Assessment and plan: SEE PLAN OF CARE LISTED BELOW. Current Visit: No Qualifiers: Hypertension type: essential hypertension Qualified Code(s): I10 - Essential (primary) hypertension (5) Hyperlipidemia Status: Chronic Assessment and plan: SEE PLAN OF CARE LISTED BELOW. Current Visit: Yes (6) CKD (chronic kidney disease) stage 3, GFR 30-59 ml/min Status: Chronic Assessment and plan: SEE PLAN OF CARE LISTED BELOW. 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 HATFIELD ([place]) Ms. Braga is a 61 year old black female who has been previously evaluated by Dr. Arreola but has more recently been following with Dr. Hatfield at [facility]. She has risk factors significant for: hypertension, diabetes, hyperlipidemia, morbid obesity. Past medical history includes paroxysmal atrial fibrillation, pulmonary embolism, sleep apnea, chronic kidney disease, GERD. Patient has had previous cardiac catheterization in February 2015 after new onset of paroxysmal atrial fib with some associated chest discomfort and mild increase in cardiac biomarkers. EKG was abnormal with ST-T changes. Cardiac cath revealed no significant obstructive coronary artery disease, and LV EF was greater than 65%. Cardiac enzyme and EKG abnormality most likely secondary to atrial fibrillation, hypertension, LVH. Ms. Braga was recently admitted to [facility] telemetry unit on September 24 for observation after an episode of atrial fibrillation with RVR. She received IV Cardizem and converted to sinus rhythm. Patient admitted to recently having taken steroids, antibiotics, and possible decongestant for upper respiratory infection. During admission, she was evaluated by Dr. Estes and had echo demonstrating moderate LVH , mild diastolic dysfunction, normal systolic function, EF 65%, mild MR and pulmonary hypertension with PA pressure 35-40 mmHg. Of note, when patient was discharged from [facility] in September 2016, it was noted that she requested to change her primary medical lab technician from Dr. Hatfield to [facility] cardiology. Speaking with her today, she was not given an appointment but does request for Dr. Gray to be her primary medical lab technician now. [facility] for further evaluation of "heart racing." She initially presented to [facility] ER complaining of her heart racing since earlier that morning, reported that it made her feel "shaky and nervous," but she did not have associated shortness of breath, chest tightness, nausea, vomiting, presyncope, or other. BP was also elevated, 205/100. EKG revealed atrial fibrillation with rapid ventricular response rate in the 130s. Reportedly had elevated BNP of greater than 2500 at [facility] ER. She received IV Lasix and subcutaneous Lovenox prior to transfer. Her BNP was 440 upon recheck in [facility] ER. EKGs and telemetry monitoring has demonstrated sinus rhythm. BP was 197/104 while in ER at any, and she received Lopressor 5 mg IVP. Admitted per hospital medicine for observation, and cardiology asked to see for further evaluation of paroxsymal atrial fibrillation. This morning, Ms. Braga is resting comfortably in her room. She is lying flat in bed, and she is not in any respiratory distress. She has not had any chest pain, dyspnea, or other complaint. Patient's biggest complaint this morning is that she is hungry. In speaking with her, patient reports seeing her PCP Dr. Ledesma approximately 1 week ago for I&D of boil on right buttock. While at this visit, she was told to increase her Cardizem dosage to twice daily (for a total of 360 mg Q day) because her blood pressure "was all out of whack." She reports medication compliance. Denies recent cough, fever, chills. No orthopnea, PND, significant lower extremity edema. Review of old clinic records notes at her last appointment with Dr. Arreola, she was to be set up for sleep medicine evaluation and polysymnograpy. Patient reports she has never completed this due to insurance not covering it. Labs reviewed. Electrolytes within normal limits. Creatinine is 1.7 (appears to be baseline). Cell counts unremarkable. Troponin level peaked at 0.369. ASSESSMENT/PLAN: 1. ATRIAL FIBRILLATION - Paroxsymal; She has not required IV Cardizem and has maintained normal sinus rhythm since arriving to [facility] Anticoagulated with Eliquis for stroke prevention. 2. ELEVATED BNP - Received IV Lasix at [facility] ER. Reports frequent urine output and feeling overall better. 3. HYPERTENSION - Significant hypertensive upon presentation and was given IV Lopressor. Home medications have been resumed. Patient reports compliance with her medicines including minoxidil. 4. DIABETES - Continue current plan of care. 5. HYPERLIPIDEMIA - FLP this morning unremarkable. Continue atorvastatin. 6. SLEEP APNEA - Untreated. Most certainly can contribute to recurrence of atrial fibrillation. 7. GERD - PPI continued. 8. DEGENERATIVE JOINT DISEASE - She follows routinely with pain clinic at [place]. CC: Betzaida Bah MD - Home Medications and Allergies Home Medications: Home Medications Medication Instructions Recorded Confirmed Type Carvedilol [Coreg] 25 mg PO BID #60 tablet 03/04/15 11/11/16 Rx Atorvastatin Calcium 20 mg PO QPM 09/24/16 11/11/16 History Furosemide Tab [Lasix Tab] 20 mg PO DAILY PRN 09/24/16 11/11/16 History Glimepiride 2 mg PO BID 09/24/16 11/11/16 History HYDROcodone/ACETAMIN 10-325 [[place] 1 tablet PO TID 09/24/16 11/11/16 History 10-325] Insulin Degludec [Tresiba 50 unit SUBCUT DAILY 09/24/16 11/11/16 History Flextouch U-200] Linaclotide [Linzess] 145 mcg PO DAILY 09/24/16 11/11/16 History Potassium Chloride 10 meq PO DAILY 09/24/16 11/11/16 History Diltiazem Cd Cap [Cardizem CD] 180 mg PO DAILY #60 capsule 09/25/16 11/11/16 Rx Apixaban [Eliquis] 5 mg PO BID 11/11/16 11/11/16 History Minoxidil 2.5 mg PO BID 11/11/16 11/11/16 History hydrALAZINE TAB [Apresoline Tab] 25 mg PO DAILY 11/11/16 11/11/16 History Allergies/Adverse Reactions: Allergies Allergy/AdvReac Type Severity Reaction Status Date / Time losartan Allergy HIVES Verified 11/11/16 00:11 - Constitutional Constitutional: Present: daytime sleepiness, fatigue. Absent: anorexia, chills , excessive sweating, fever(s), frequent falls, lethargy, weakness, weight gain , weight loss - EENT Eyes: Absent: blurry vision, loss of vision Ears: Absent: decreased hearing Nose, mouth and throat: Present: dysphagia. Absent: epistaxis, lip swelling, nasal congestion, sore throat, throat swelling, tongue swelling, vertigo - Cardiovascular Cardiovascular: Present: palpitations. Absent: chest pain at rest, chest pain with activity, diaphoresis, dyspnea on exertion, radiating jaw, neck or arm pain , lightheadedness, orthopnea, PND - Respiratory Respiratory: Absent: cough, hemoptysis, dyspnea on exertion, change in phlegm color - Gastrointestinal Gastrointestinal: Present: dysphagia, heartburn. Absent: abdominal pain, constipation, diarrhea, hematemesis, hematochezia, melena, nausea, vomiting, jaundice - Genitourinary Genitourinary: Absent: abnormal vaginal bleeding, dysuria, flank pain, hematuria - Musculoskeletal Musculoskeletal: Present: arthralgias, back pain, myalgias. Absent: limited range of motion - Neurological Neurological: Absent: abnormal gait, confusion, dizziness, syncope, tremor(s) - Psychiatric Psychiatric: Absent: anxiety, depression - Endocrine Endocrine: Absent: cold intolerance, heat intolerance - Hematologic/Lymphatic Hematologic/Lymphatic: Absent: easy bleeding, easy bruising Medical,Surgical,& Family Hx - Medical History Cardio: History of: Cardiac Dysrhythmia (a fib (Feb 2015)), CHF, Hypertension No history of: CAD, CO, Pacemaker, PVD, Valvular Heart Disease, Cardiovascular Problems Psychological: No history of: Anxiety Disorders, Depression Neurology: History of: Peripheral Neuropathy Endocrine: History of: Diabetes Mellitus (IDDM), Diabetes Mellitus (NIDDM), Dyslipidemia No history of: Thyroid Disorder Rheumatology: History of;: Rheumatoid Arthritis Respiratory: History of: Pulmonary Hypertension No history of: COPD Renal: History of: Renal Problems (CRI) Genitourinary: History of: Kidney Stones Gastrointestinal: History of: GERD No history of: Gastrointestinal Bleed, Hematochezia, Hepatitis, Liver Problems, Pancreatitis Musculoskeletal: History of: Back/Neck Problems (fusion) Hematology: No history of: Anemia, Blood Transfusion Reaction, Bleeding Problems - Surgical History Cardiac Surgeries: Sugical HX of: Cardiac Catheterization (Feb 2015 ([place])) Patient Denies: Femoral-Popliteal Bypass Graft, Cardiac Surgery, Carotid Endarterectomy, Internal Defibrillator, Vascular Access Devices Thoracic Surgeries: Patient denies;: Lobectomy Neurologic Surgeries: Patient denies: Neurologic Surgery HEENT Surgeries: Patient denies: Carotid Endarterectomy Abdominal Surgeries: Surgical HX of: Cholecystectomy Patient denies: Splenectomy Orthopedic Surgeries: Surgical HX of;: Orthopedic Surgery, Total Knee Replacement (2014) - Family History Family History: Reports;: Family Cancer (sister (bone)), Family Diabetes, Family Hypertension (father) - Social History Smoking Status: Never smoker Frequency of Alcohol Use: None Type of Drug Use: None Marital Status: Lives With:: Alone Functional capacity: independent ambulation Physical Examination Vital Signs Temp Pulse Resp BP 97.6 F 83 20 197/104 11/10/16 21:56 11/10/16 21:56 11/10/16 21:56 11/10/16 21:56 General: Present: No Apparent Distress, Other (overweight) HEENT: Present: PERRL, Normocephaly. Absent: Jaundice, Pallor Neck: Present: Supple Neck, Midline Trachea, No JVD/HJR, No Masses, No Bruit Cardiac: Present: Reg Rate and Rhythm, No Murmur. Absent: Tachycardia, Bradycardia Lungs: Present: Normal Exam, Clear Ascult./Percussion, No Wheeze, Rales, Rhonchi. Absent: Oxygen Neuro: Present: Grossly Intact. Absent: Tingling, Weakness, Resting Tremor, Essential Tremor Abdomen: Present: Soft, Active Bowel Sounds, No Masses, No Pulsations/Bruits, Other (obese). Absent: Ascites, Tender, Firm Skin: Present: Clear. Absent: Rash, Suspicious Lesions, Bruising Musculoskeletal: Present: No Fluid Collection, Normal Range of Motion Extremities: Present: No Clubbing, No Cyanosis, Normal Upper Extr. Pulses (3+ bilaterally), Normal Lower Extr. Pulses (2+ bilaterally), Bilateral Pedal Edema (trace), Capillary Refill (normal), Other (warm, dry) Result/EKG - Labs CBC & BMP: 11/11/16 03:55 11/11/16 03:55 Lab Results: I have reviewed the past 24 hour labs Labs: Laboratory Results - last 24 hr 11/10/16 11/11/16 11/11/16 23:18 01:09 03:55 WBC RBC Hgb Hct MCV MCH MCHC RDW Plt Count MPV Neut % (Auto) Lymph % (Auto) [place] % (Auto) Eos % (Auto) Baso % (Auto) Neut # (Auto) Lymph # (Auto) [place] # (Auto) Eos # (Auto) Baso # (Auto) Immature Gran % Nucleated RBC % Immature Gran # Nucleated RBCs # Immature Plt Fraction Sodium Potassium Chloride Carbon Dioxide Anion Gap BUN Creatinine GFR Calculation BUN/Creatinine Ratio Glucose POC Glucose 105 Hemoglobin A1c Calculated Osmolality Calcium Magnesium Total Bilirubin AST ALT Alkaline Phosphatase Total Creatine Kinase 107 83 D CK-MB (CK-2) 4.5 H 4.9 H Troponin I 0.369 H 0.364 H B-Natriuretic Peptide Total Protein Albumin Globulin Albumin/Globulin Ratio Triglycerides Cholesterol LDL Cholesterol VLDL Cholesterol HDL Cholesterol Heart Disease Risk Ratio 11/11/16 11/11/16 11/11/16 03:55 03:55 03:55 WBC 8.0 RBC 4.01 Hgb 10.9 L Hct 31.8 L MCV 79.3 L MCH 27 MCHC 34.3 RDW 13.7 Plt Count 273 MPV 10.7 Neut % (Auto) 50.7 Lymph % (Auto) 34.8 [place] % (Auto) 10.8 Eos % (Auto) 2.5 Baso % (Auto) 0.8 Neut # (Auto) 4.1 Lymph # (Auto) 2.8 [place] # (Auto) 0.9 H Eos # (Auto) 0.2 Baso # (Auto) 0.1 Immature Gran % 0.4 Nucleated RBC % 0.0 Immature Gran # 0.03 Nucleated RBCs # 0.00 Immature Plt Fraction 0.0 Sodium 142 Potassium 3.9 Chloride 108 H Carbon Dioxide 29 Anion Gap 8.9 BUN 27 H Creatinine 1.70 H GFR Calculation 44 BUN/Creatinine Ratio 15.00 Glucose 124 H POC Glucose Hemoglobin A1c Calculated Osmolality 288.1 Calcium 9.2 Magnesium 1.8 Total Bilirubin < 0.39 AST 41 H ALT 57 H Alkaline Phosphatase 98 Total Creatine Kinase CK-MB (CK-2) Troponin I B-Natriuretic Peptide 442 H Total Protein 5.6 L Albumin 2.8 L Globulin 2.8 Albumin/Globulin Ratio 1.0 L Triglycerides Cholesterol LDL Cholesterol VLDL Cholesterol HDL Cholesterol Heart Disease Risk Ratio 11/11/16 11/11/16 11/11/16 03:55 03:55 07:17 WBC RBC Hgb Hct MCV MCH MCHC RDW Plt Count MPV Neut % (Auto) Lymph % (Auto) [place] % (Auto) Eos % (Auto) Baso % (Auto) Neut # (Auto) Lymph # (Auto) [place] # (Auto) Eos # (Auto) Baso # (Auto) Immature Gran % Nucleated RBC % Immature Gran # Nucleated RBCs # Immature Plt Fraction Sodium Potassium Chloride Carbon Dioxide Anion Gap BUN Creatinine GFR Calculation BUN/Creatinine Ratio Glucose POC Glucose 118 H Hemoglobin A1c 9.1 H Calculated Osmolality Calcium Magnesium Total Bilirubin AST ALT Alkaline Phosphatase Total Creatine Kinase CK-MB (CK-2) Troponin I B-Natriuretic Peptide Total Protein Albumin Globulin Albumin/Globulin Ratio Triglycerides 108 Cholesterol 178 LDL Cholesterol 93.0 VLDL Cholesterol 21.6 HDL Cholesterol 59 Heart Disease Risk Ratio 3.02 - EKG EKG results: interpreted by me, no acute changes EKG shows: sinus rhythm IIsaac Jennifer, MD, personally performed the services described in this documentation, ascribed by María Rucker RN in my presence, and it is both accurate and complete 723 .
[2016-11-11] MEDS ORDERED: ATORVASTATIN 20 MG TABLET PO SCH (21:00)
[2016-11-12 05:18] LABS: Basophils # 0.1 10*3/uL (0.0-0.2); Basophils % 0.8 % (0.0-0.8); Eosinophils # 0.2 10*3/uL (0.0-0.87); Eosinophils % 3.3 % (0.00-10.9); Hematocrit 33.2 VOL% (35.7-47.0); Hemoglobin 11.3 GM/DL (12.0-16.0); Immature Granulocytes % 0.3 %; Immature Granulocytes Absolute 0.02 #; Lymphocytes # 2.3 10*3/uL (1.4-4.0); Lymphocytes % 36.2 % (21.3-54.2); Mean Corpuscular Hemoglobin 27 PG (27-34); Mean Corpuscular Volume 79.6 FL (87-102); Mean Platelet Volume 10.2 FL (9.6-12.0); Monocytes # 0.8 10*3/uL (0.11-0.8); Monocytes % 12.4 % (1.7-12.7); Platelet Count 267 T/CUMM (130-400); Red Blood Count 4.17 MC/CUMM (3.8-5.5); Red Cell Distribution Width 13.8 % (9.3-17.3); White Blood Count 6.5 T/CUMM (4-12)
[2016-11-12 05:48] LABS: Calcium 8.8 MG/DL (8.5-10.1); Magnesium 1.6 MG/DL (1.8-2.4); Osmolality,Calculated 288.1 MOS/KG (273-304); Potassium 3.9 MMOL/L (3.5-5.1)
[2016-11-12] MEDS: ACETAMINOPHEN 325 MG TABLET PO PRN (06:58)
--- NOTE | 2016-11-12 07:51 | EKG Report ---
Please refer to the EKG image. Final interpretation is pending.
[2016-11-12] MEDS: INSULIN REGULAR 100 UNIT/ML SUBCUT SCH ×2 (08:36→12:48)
[2016-11-12] MEDS: MINOXIDIL 2.5 MG TABLET PO SCH (08:37)
[2016-11-12] MEDS: DILTIAZEM CD 180 MG CAPSULE PO SCH (08:38)
[2016-11-12] MEDS: hydrALAZINE 25 MG TABLET PO SCH (08:39)
[2016-11-12] MEDS: POTASSIUM CHLORIDE 10 MEQ TABLET PO SCH (08:39)
[2016-11-12] MEDS: PANTOPRAZOLE 40 MG TABLET PO SCH (08:39)
[2016-11-12] MEDS: CARVEDILOL 25 MG TABLET PO SCH (08:39)
[2016-11-12] MEDS: APIXABAN 5 MG TABLET PO SCH (08:39)
[2016-11-12] MEDS: LINACLOTIDE 145 MCG CAPSULE PO SCH (08:40)
[2016-11-12] MEDS ORDERED: amLODIPine 5 MG TABLET PO SCH (10:30)
[2016-11-12] MEDS ORDERED: MAGNESIUM OXIDE 400 MG TABLET PO SCH (12:30)
[2016-11-12] MEDS ORDERED: MAGNESIUM SULF RIDER 1 GM in PREMIX 1 EACH IV ONE (12:31)
[2016-11-12 12:46] VITALS: BP 148/86
--- NOTE | 2016-11-12 13:09 | Discharge Summary ---
Hospital Course - Hospital Course Hospital Course: Ms. Braga is a 61-year-old morbidly obese female with a history of A. fib, hypertension, CHF, diabetes, dyslipidemia, COPD presented to the ED / transfer from [facility] for evaluation of positive troponins and palpitations. Patient stated that her heart was beating very fast but denies chest pain or shortness of breath. She presented to the [facility] for treatment and it was there that they found her be in afib with an elevated troponin and subsequently she was transferred here. patient was noted to have a troponin of 0.369. Cardiology was consulted to evaluate the patient. Paroxysmal atrial fibrillation. Resolved at the time of the consult. Patient was anticoagulated with Eliquis for stroke prevention. Patient's condition stabilized she is ready for discharge. Specialty Discharge - Follow Up or Referrals Follow up with: Marjan Gray MD [Physician] - 2 Weeks (Follow up with Dr. Gray at [facility] clinic in 2 weeks with EKG, CBC, BMP, Mg+. Patient has seen Dr. Arreola in the past, but wishes to establish primary care with Dr. Gray.) Discharge Plan - Discharge Data Disposition: Disch To Home/Self Care Condition at Discharge: Stable Activity: resume usual activities as tolerated Hygiene: no restrictions Weight Bearing at Discharge: weight bear as tolerated Contact your physician if you experience:: fever over 101, Shortness of breath, Bleeding - Discharge Medications New amLODIPine [Norvasc] 5 mg PO DAILY #30 tablet Continue Carvedilol [Coreg] 25 mg PO BID #60 tablet Potassium Chloride 10 meq PO DAILY Linaclotide [Linzess] 145 mcg PO DAILY Furosemide Tab [Lasix Tab] 20 mg PO DAILY PRN PRN Reason: FLUID Atorvastatin Calcium 20 mg PO QPM Insulin Degludec [Tresiba Flextouch U-200] 50 unit SUBCUT DAILY Apixaban [Eliquis] 5 mg PO BID Minoxidil 2.5 mg PO BID hydrALAZINE TAB [Apresoline Tab] 25 mg PO DAILY HYDROcodone/ACETAMIN 10-325 [[place] 10-325] 1 tablet PO TID Glimepiride 2 mg PO BID Diltiazem Cd Cap [Cardizem CD] 180 mg PO DAILY #60 capsule - Follow Up or Referral Follow Up: Marjan Gray MD [Physician] - 2 Weeks (Follow up with Dr. Gray at [facility] clinic in 2 weeks with EKG, CBC, BMP, Mg+. Patient has seen Dr. Arreola in the past, but wishes to establish primary care with Dr. Gray.) - Forms/Instructions Instructions: Chronic Hypertension (DC) Exam - Constitutional Vitals: Period Temp Pulse Resp BP Sys/Wooten Pulse Ox Last 24 Hr 96.8 F-98.5 F 73-90 16-20 148-187/86-109 96-99 General appearance: over weight - Head Head exam: Present: normocephalic, atraumatic - Eye Eye exam: Present: EOMI Pupils: Present: DEEPIKA - ENT ENT exam: Present: normal exam - Neck Neck exam: Present: normal inspection - Respiratory Respiratory exam: Present: clear to auscultation bilaterally - Cardiovascular Cardiovascular exam: Present: regular rate and rhythm - GI/Abdominal GI/Abdominal exam: Present: normal bowel sounds, soft - Extremities Exam Extremities exam: Present: full ROM - Neurological Exam Neurological exam: Present: oriented X3, CN II-XII intact - Psychiatric Psychiatric exam: Present: normal affect, normal mood - Skin Skin exam: Present: normal color, warm, dry Discharge Results Labs on day of discharge: Labs from last 24 hours 11/12/16 11/12/16 11/12/16 12:06 08:08 04:49 WBC RBC Hgb Hct MCV MCH MCHC RDW Plt Count MPV Neut % (Auto) Lymph % (Auto) [place] % (Auto) Eos % (Auto) Baso % (Auto) Neut # (Auto) Lymph # (Auto) [place] # (Auto) Eos # (Auto) Baso # (Auto) Immature Gran % Nucleated RBC % Immature Gran # Nucleated RBCs # Immature Plt Fraction Sodium 142 Potassium 3.9 Chloride 107 Carbon Dioxide 28 Anion Gap 10.9 BUN 26 H Creatinine 1.70 H GFR Calculation 44 BUN/Creatinine Ratio 15.00 Glucose 114 H POC Glucose 223 H 149 H Calculated Osmolality 288.1 Calcium 8.8 Magnesium 1.6 L 11/12/16 11/11/16 11/11/16 04:49 19:51 16:02 WBC 6.5 RBC 4.17 Hgb 11.3 L Hct 33.2 L MCV 79.6 L MCH 27 MCHC 34.0 RDW 13.8 Plt Count 267 MPV 10.2 Neut % (Auto) 47.0 Lymph % (Auto) 36.2 [place] % (Auto) 12.4 Eos % (Auto) 3.3 Baso % (Auto) 0.8 Neut # (Auto) 3.0 Lymph # (Auto) 2.3 [place] # (Auto) 0.8 Eos # (Auto) 0.2 Baso # (Auto) 0.1 Immature Gran % 0.3 Nucleated RBC % 0.0 Immature Gran # 0.02 Nucleated RBCs # 0.00 Immature Plt Fraction 0.0 Sodium Potassium Chloride Carbon Dioxide Anion Gap BUN Creatinine GFR Calculation BUN/Creatinine Ratio Glucose POC Glucose 299 H 239 H Calculated Osmolality Calcium Magnesium DS: Provider Date of admission: 11/10/16 23:31 Primary care physician: . No PCP Attending physician on admission: Elmer Hebert MD Consults: 11/10/16 23:31 Consult to Physician [CONS] Routine Comment: Consulting Provider: Cardiology - [facility] When should Consulting Provider be notified: In am Person Notified: Ryan Date Notified: 11/11/16 Time Notified: 07:45 Discharging clinician: Terrance Mckeon MD
[2016-11-12] MEDS ORDERED: MAGNESIUM SULF RIDER 50 ML IV ONE (13:31)
[2016-11-12] MEDS ORDERED: hydrALAZINE 25 MG TABLET PO SCH (15:00)
--- NOTE | 2016-11-12 17:13 | Cardiology Progress Note ---
Assessment and Plan (1) Atrial fibrillation Status: Chronic Assessment and plan: SEE PLAN OF CARE LISTED BELOW. Qualifiers: Atrial fibrillation type: paroxysmal Qualified Code(s): I48.0 - Paroxysmal atrial fibrillation (2) DJD (degenerative joint disease) Problem details: h/o TKR ? IVC filter placement prior to TKR procedure [facility] Status: Chronic Assessment and plan: SEE PLAN OF CARE LISTED BELOW. (3) Diabetes Status: Chronic Assessment and plan: SEE PLAN OF CARE LISTED BELOW. Qualifiers: Diabetes mellitus type: type 2 Diabetes mellitus complication status: with kidney complications Diabetes mellitus complication detail: with chronic kidney disease Diabetes mellitus prison insulin use: without prison use Chronic kidney disease stage: stage 3 (moderate) Qualified Code(s): E11.22 - Type 2 diabetes mellitus with diabetic chronic kidney disease; N18.3 - Chronic kidney disease, stage 3 (moderate) (4) Hypertension Status: Chronic Assessment and plan: SEE PLAN OF CARE LISTED BELOW. Qualifiers: Hypertension type: essential hypertension Qualified Code(s): I10 - Essential (primary) hypertension (5) Hyperlipidemia Status: Chronic Assessment and plan: SEE PLAN OF CARE LISTED BELOW. (6) CKD (chronic kidney disease) stage 3, GFR 30-59 ml/min Status: Chronic Assessment and plan: SEE PLAN OF CARE LISTED BELOW. 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 HATFIELD (RYAN), she is requesting to change to Dr. Gray Ms. Braga is a 61 year old black female who has been previously evaluated by Dr. Arreola but has more recently been following with Dr. Hatfield at [facility]. She has risk factors significant for: hypertension, diabetes, hyperlipidemia, morbid obesity. Past medical history includes paroxysmal atrial fibrillation, pulmonary embolism, sleep apnea, chronic kidney disease, GERD. Patient has had previous cardiac catheterization in February 2015 after new onset of paroxysmal atrial fib with some associated chest discomfort and mild increase in cardiac biomarkers. EKG was abnormal with ST-T changes. Cardiac cath revealed no significant obstructive coronary artery disease, and LV EF was greater than 65%. Recently admitted to [facility] telemetry unit on September 24 for observation after an episode of atrial fibrillation with RVR. She received IV Cardizem and converted to sinus rhythm. Patient admitted to recently having taken steroids, antibiotics, and possible decongestant for upper respiratory infection. During admission, she was evaluated by Dr. Estes and had echo demonstrating moderate LVH, mild diastolic dysfunction, normal systolic function, EF 65%, mild MR and pulmonary hypertension with PA pressure 35-40 mmHg. Patient is now readmitted with symptomatic atrial fibrillation with RVR and uncontrolled hypertension. She has converted back to sinus rhythm. November 12, 2016: She has been maintained in sinus rhythm, has no complaints this morning. She denies any chest pain, shortness of breath. ASSESSMENT/PLAN: 1. ATRIAL FIBRILLATION - Paroxsymal; She has not required IV Cardizem and has maintained normal sinus rhythm since arriving to [facility] Anticoagulated with Eliquis for stroke prevention. 2. ELEVATED BNP - Received IV Lasix at [facility] ER. Reports frequent urine output and feeling overall better. 3. HYPERTENSION -I am going to adjust her medications to increase the hydralazine to 50 p.o. 3 times daily, discontinue the minoxidil, and add Norvasc 5 mg p.o. daily. It is unusual to have 2 calcium channel blockers, but we are trying to both right control her as well as control her hypertension 4. DIABETES - Continue current plan of care. 5. HYPERLIPIDEMIA - FLP this morning unremarkable. Continue atorvastatin. 6. SLEEP APNEA - Untreated. Most certainly can contribute to recurrence of atrial fibrillation. 7. GERD - PPI continued. Exam (Progress Note) - Constitutional Vitals: Period Temp Pulse Resp BP Sys/Wooten Pulse Ox Last 24 Hr 97.6 F-98.5 F 73-86 16-20 148-187/86-109 96-99 Exam: General appearance: normal weight, no acute distress - Head Head exam: Present: normal inspection, normocephalic, atraumatic. Absent: hematoma, laceration - Eye Eye exam: Present: EOMI. Absent: conjunctival injection, nystagmus, periorbital swelling, scleral icterus, laceration to eyelids Pupils: Present: PERRL. Absent: constricted, dilated, fixed, irregular, unequal - ENT ENT exam: Present: normal exam, normal external ear exam - Neck Neck exam: Present: normal inspection. Absent: lymphadenopathy, meningismus, tenderness, thyromegaly - Respiratory Respiratory exam: Present: clear to auscultation bilaterally. Absent: accessory muscle use, chest wall tenderness - Cardiovascular Cardiovascular exam: Present: regular rate and rhythm. Absent: carotid bruit, gallop, JVD, rubs - GI/Abdominal GI/Abdominal exam: Present: normal bowel sounds, soft. Absent: distended, firm , guarding, hernia, mass, tenderness, rebound. - Extremities Exam Extremities exam: Present: normal inspection, normal capillary refill. Absent: calf tenderness, edema - Back Exam Back exam: Present: normal inspection. Absent: muscle spasm, vertebral tenderness - Neurological Exam Neurological exam: Present: alert, oriented X3, grossly intact without resting or intention tremor - Psychiatric Psychiatric exam: Present: normal affect, normal mood - Skin Skin exam: Present: normal color, warm, dry, intact. Absent: cyanosis, diaphoretic, rash, urticaria Result/EKG - Labs CBC & BMP: 11/12/16 04:49 11/12/16 04:49 Labs: Laboratory Results - last 24 hr 11/11/16 11/12/16 11/12/16 19:51 04:49 04:49 WBC 6.5 RBC 4.17 Hgb 11.3 L Hct 33.2 L MCV 79.6 L MCH 27 MCHC 34.0 RDW 13.8 Plt Count 267 MPV 10.2 Neut % (Auto) 47.0 Lymph % (Auto) 36.2 [place] % (Auto) 12.4 Eos % (Auto) 3.3 Baso % (Auto) 0.8 Neut # (Auto) 3.0 Lymph # (Auto) 2.3 [place] # (Auto) 0.8 Eos # (Auto) 0.2 Baso # (Auto) 0.1 Immature Gran % 0.3 Nucleated RBC % 0.0 Immature Gran # 0.02 Nucleated RBCs # 0.00 Immature Plt Fraction 0.0 Sodium 142 Potassium 3.9 Chloride 107 Carbon Dioxide 28 Anion Gap 10.9 BUN 26 H Creatinine 1.70 H GFR Calculation 44 BUN/Creatinine Ratio 15.00 Glucose 114 H POC Glucose 299 H Calculated Osmolality 288.1 Calcium 8.8 Magnesium 1.6 L 11/12/16 11/12/16 11/12/16 08:08 12:06 16:02 WBC RBC Hgb Hct MCV MCH MCHC RDW Plt Count MPV Neut % (Auto) Lymph % (Auto) [place] % (Auto) Eos % (Auto) Baso % (Auto) Neut # (Auto) Lymph # (Auto) [place] # (Auto) Eos # (Auto) Baso # (Auto) Immature Gran % Nucleated RBC % Immature Gran # Nucleated RBCs # Immature Plt Fraction Sodium Potassium Chloride Carbon Dioxide Anion Gap BUN Creatinine GFR Calculation BUN/Creatinine Ratio Glucose POC Glucose 149 H 223 H 286 H Calculated Osmolality Calcium Magnesium Specialty Discharge - Follow Up or Referrals Follow up with: Marjan Gray MD [Physician] - 2 Weeks (Follow up with Dr. Gray at [facility] in 2 weeks with EKG, CBC, BMP, Mg+. Patient has seen Dr. Arreola in the past, but wishes to establish primary care with Dr. Gray.)
== END 2016-11-12 16:31 | disposition home or self-care (01) ==
LOC: EDBD → EDUNIT# → N.ED 21:50 → SUATTDRO 23:31 → N.EDINP 11-11 00:01 → INTOOBSV 11-11 00:01 → SUATTDRO 11-11 00:01 → N.TELES 11-11 00:18
PROVIDERS: ADMIT Internal Medicine; ATTEND Internal Medicine Infectious Disease

== ENCOUNTER 2017-06-01 13:40 | Inpatient (IN) ==
[2017-06-01] MEDS ORDERED: DILTIAZEM 50 MG/10 ML VIAL IV STA (14:02)
[2017-06-01] MEDS: DILTIAZEM INJ 100 MG in SODIUM CHLORIDE 0.9% 100 ML IV SCH (14:30)
[2017-06-01 15:14] LABS: Calcium 9.5 MG/DL (8.5-10.1); Free T4 (Free Thyroxine) 1.08 NG/DL (0.76-1.46); Osmolality,Calculated 287.4 MOS/KG (273-304); Potassium 3.6 MMOL/L (3.5-5.1); Thyroid Stimulating Hormone 1.04 uIU/ml (0.358-3.74)
[2017-06-01] MEDS ORDERED: DEXTROSE 50% 25 GM/50 ML VIAL IV PRN (15:24)
[2017-06-01] MEDS ORDERED: GLUCAGON 1 MG VIAL IM PRN (15:24)
[2017-06-01] MEDS ORDERED: LACTULOSE 20 GM/30 ML UDCUP PO PRN (16:44)
[2017-06-01] MEDS ORDERED: ZALEPLON 5 MG CAPSULE PO PRN (16:44)
[2017-06-01] MEDS ORDERED: MAGNESIUM SULF RIDER 2 GM in PREMIX 1 EACH IV PRN (16:44)
[2017-06-01] MEDS ORDERED: diphenhydrAMINE CAP 25 MG CAPSULE PO PRN (16:44)
[2017-06-01] MEDS ORDERED: FUROSEMIDE 20 MG TABLET PO PRN (16:44)
[2017-06-01] MEDS ORDERED: DOCUSATE SODIUM 100 MG CAPSULE PO PRN (16:44)
[2017-06-01] MEDS ORDERED: ONDANSETRON 4 MG/2 ML VIAL IV PRN (16:44)
[2017-06-01] MEDS ORDERED: guaiFENesin/DM ER 600-30 MG TABLET PO PRN (16:44)
[2017-06-01] MEDS ORDERED: DEXTROSE 5% NACL 0.45% 1,000 ML IV SCH (16:44)
[2017-06-01] MEDS ORDERED: POTASSIUM CHLORIDE 20 MEQ TABLET PO PRN (16:44)
[2017-06-01] MEDS ORDERED: MAGNESIUM SULF RIDER 4 GM in PREMIX 1 EACH IV PRN (16:44)
[2017-06-01] MEDS ORDERED: ACETAMINOPHEN 325 MG TABLET PO PRN (16:44)
[2017-06-01] MEDS: INSULIN LISPRO 100 UNIT/ML SUBCUT SCH ×2 (17:03→21:43)
[2017-06-01] MEDS: PANTOPRAZOLE 40 MG TABLET PO SCH (17:04)
[2017-06-01] MEDS: GABAPENTIN 300 MG CAPSULE PO SCH ×2 (17:04→21:43)
[2017-06-01 18:08] LABS: CKMB % 4.7 %
[2017-06-01 18:09] LABS: Troponin I Only 0.387 NG/ML (0.00-0.045)
[2017-06-01] MEDS ORDERED: ATORVASTATIN 20 MG TABLET PO SCH (21:00)
[2017-06-01] MEDS: APIXABAN 5 MG TABLET PO SCH (21:43)
[2017-06-01] MEDS: CARVEDILOL 25 MG TABLET PO SCH (21:43)
[2017-06-02 04:50] LABS: Basophils # 0.1 10*3/uL (0.0-0.2); Basophils % 0.8 % (0.0-0.8); Eosinophils # 0.2 10*3/uL (0.0-0.87); Hematocrit 31.6 VOL% (35.7-47.0); Hemoglobin 10.8 GM/DL (12.0-16.0); Immature Granulocytes % 0.3 %; Immature Granulocytes Absolute 0.02 #; Lymphocytes # 2.5 10*3/uL (1.4-4.0); Lymphocytes % 40.6 % (21.3-54.2); Mean Corpuscular HGB Conc 34.2 GM/DL (32-36); Mean Corpuscular Hemoglobin 28 PG (27-34); Mean Corpuscular Volume 80.8 FL (87-102); Monocytes # 0.6 10*3/uL (0.11-0.8); Monocytes % 10.2 % (1.7-12.7); Neutrophils # 2.7 10*3/uL (1.4-7.4); Neutrophils % 44.1 % (38.7-73.9); Platelet Count 232 T/CUMM (130-400); Red Blood Count 3.91 MC/CUMM (3.8-5.5); Red Cell Distribution Width 14.1 % (9.3-17.3); White Blood Count 6.1 T/CUMM (4-12)
[2017-06-02 05:21] LABS: Osmolality,Calculated 297.3 MOS/KG (273-304); Potassium 4.3 MMOL/L (3.5-5.1); Risk Ratio 5.6; VLDL CHOLESTEROL 59.2 MG/DL
[2017-06-02] MEDS: INSULIN LISPRO 100 UNIT/ML SUBCUT SCH ×3 (08:41→16:31)
[2017-06-02] MEDS: CARVEDILOL 25 MG TABLET PO SCH (08:49)
[2017-06-02] MEDS: APIXABAN 5 MG TABLET PO SCH (08:49)
[2017-06-02] MEDS: GABAPENTIN 300 MG CAPSULE PO SCH ×3 (08:50→16:34)
[2017-06-02] MEDS: PANTOPRAZOLE 40 MG TABLET PO SCH (08:50)
[2017-06-02] MEDS ORDERED: NON-FORMULARY MEDICATION (Liraglutide [Victoza 2-Pak] 1.2 MG) SUBCUT SCH (09:00)
[2017-06-02] MEDS ORDERED: DILTIAZEM CD 180 MG CAPSULE PO SCH (09:00)
[2017-06-02] MEDS ORDERED: amLODIPine 10 MG TABLET PO SCH (09:00)
[2017-06-02] MEDS ORDERED: NON-FORMULARY MEDICATION (Insulin Degludec [Tresiba Flextouch U-200] 50 UNIT) SUBCUT SCH (09:00)
[2017-06-02] MEDS ORDERED: LINACLOTIDE 145 MCG CAPSULE PO SCH (09:00)
[2017-06-02] MEDS ORDERED: POTASSIUM CHLORIDE 10 MEQ TABLET PO SCH (09:00)
[2017-06-02] MEDS ORDERED: ATORVASTATIN 40 MG TABLET PO SCH (11:54)
[2017-06-02] MEDS: DILTIAZEM INJ 100 MG in SODIUM CHLORIDE 0.9% 100 ML IV SCH (14:08)
[2017-06-02 15:47] VITALS: BP 118/75
== END 2017-06-02 17:36 | disposition home or self-care (01) | DRG 310 ==
LOC: EDUNIT# → EDBD → N.ED 13:40 → N.EDINP 14:04 → N.TELES 16:10
PROVIDERS: ADMIT Internal Medicine Cardiovascular Disease; ATTEND Internal Medicine Cardiovascular Disease

== ENCOUNTER 2017-06-09 05:10 | Inpatient (IN) ==
[2017-06-09] MEDS ORDERED: ASPIRIN 325 MG TABLET PO STA (05:27)
[2017-06-09 06:05] LABS: Basophils # 0.1 10*3/uL (0.0-0.2); Basophils % 0.9 % (0.0-0.8); Eosinophils # 0.2 10*3/uL (0.0-0.87); Eosinophils % 3.8 % (0.00-10.9); Hematocrit 37.1 VOL% (35.7-47.0); Hemoglobin 12.7 GM/DL (12.0-16.0); Immature Granulocytes % 0.3 %; Immature Granulocytes Absolute 0.02 #; Lymphocytes # 2.3 10*3/uL (1.4-4.0); Lymphocytes % 38.9 % (21.3-54.2); Mean Corpuscular HGB Conc 34.2 GM/DL (32-36); Mean Corpuscular Hemoglobin 28 PG (27-34); Mean Corpuscular Volume 81.2 FL (87-102); Mean Platelet Volume 11.5 FL (9.6-12.0); Monocytes # 0.7 10*3/uL (0.11-0.8); Monocytes % 11.1 % (1.7-12.7); Neutrophils # 2.6 10*3/uL (1.4-7.4); Platelet Count 290 T/CUMM (130-400); Red Blood Count 4.57 MC/CUMM (3.8-5.5); Red Cell Distribution Width 13.8 % (9.3-17.3); White Blood Count 5.9 T/CUMM (4-12)
[2017-06-09] MEDS ORDERED: METOPROLOL TARTRATE 5 MG/5 ML VIAL IV STA ×3 (06:23→08:38)
[2017-06-09] MEDS ORDERED: METOPROLOL TARTRATE 5 MG/5 ML VIAL IV ONE ×3 (06:25→08:34)
[2017-06-09] MEDS ORDERED: ONDANSETRON 4 MG/2 ML VIAL IV STA (07:15)
[2017-06-09] MEDS ORDERED: ONDANSETRON 4 MG/2 ML VIAL ONE (07:16)
[2017-06-09 07:38] LABS: Albumin 3.4 G/DL (3.4-5.0); Bilirubin,Total 0.5 MG/DL (0.2-1.0); Osmolality,Calculated 292.5 MOS/KG (273-304); Potassium 3.6 MMOL/L (3.5-5.1); Total Protein 6.9 G/DL (6.4-8.3)
[2017-06-09] MEDS ORDERED: hydrALAZINE 20 MG/1 ML VIAL ONE (08:34)
[2017-06-09] MEDS ORDERED: hydrALAZINE 20 MG/1 ML VIAL IV STA (08:38)
[2017-06-09 09:04] LABS: Barbiturates Screen,Urine Negative (Negative); Benzodiazepines Screen,Urine Negative (Negative); Cannabinoid Screen,Urine Negative (Negative); Opiate Screen,Urine Negative (Negative); Phencyclidine Screen,Urine Negative (Negative)
[2017-06-09] MEDS ORDERED: amLODIPine 5 MG TABLET ONE (09:12)
[2017-06-09] MEDS ORDERED: cloNIDine 0.1 MG TABLET ONE (09:12)
[2017-06-09] MEDS ORDERED: PANTOPRAZOLE 40 MG VIAL IV ONE (09:15)
[2017-06-09] MEDS ORDERED: PANTOPRAZOLE 40 MG VIAL IV STA (09:18)
[2017-06-09] MEDS ORDERED: amLODIPine 5 MG TABLET PO STA (09:18)
[2017-06-09] MEDS ORDERED: cloNIDine 0.1 MG TABLET PO STA (09:18)
[2017-06-09] MEDS ORDERED: PROMETHAZINE 25 MG/1 ML VIAL ONE (09:49)
[2017-06-09] MEDS ORDERED: PROMETHAZINE 25 MG/1 ML VIAL IM STA (09:51)
[2017-06-09] MEDS ORDERED: niCARdipine 25 MG/10 ML VIAL IV ONE ×2 (10:36→15:14)
[2017-06-09] MEDS: niCARdipine INJ 25 MG in SODIUM CHLORIDE 0.9% 240 ML IV SCH ×3 (10:47→20:46)
[2017-06-09] MEDS ORDERED: SODIUM PHOSPHATE ENEMA 133 ML BOTTLE RECTAL STA (12:04)
[2017-06-09] MEDS ORDERED: METHYLNALTREXONE 12 MG/0.6 ML VIAL SUBCUT ONE (12:04)
[2017-06-09] MEDS ORDERED: SODIUM PHOSPHATE ENEMA 133 ML BOTTLE RECTAL ONE (12:53)
[2017-06-09] MEDS ORDERED: oxyCODONE/ACETAMINOPHEN 5-325 MG TABLET PO PRN (14:02)
[2017-06-09] MEDS ORDERED: GLUCAGON 1 MG VIAL IM PRN (18:38)
[2017-06-09] MEDS ORDERED: DEXTROSE 50% 25 GM/50 ML VIAL IV PRN (18:38)
[2017-06-09] MEDS ORDERED: ACETAMINOPHEN 325 MG TABLET PO PRN (18:41)
[2017-06-09] MEDS ORDERED: ONDANSETRON 4 MG/2 ML VIAL IV PRN (18:41)
[2017-06-09] MEDS ORDERED: POLYETHYLENE GLYCOL POWDER 255 GM BOTTLE PO ONE (18:45)
[2017-06-09] MEDS: SODIUM CHLORIDE 0.45% 1,000 ML IV SCH (19:36)
[2017-06-09] MEDS: APIXABAN 5 MG TABLET PO SCH (20:45)
[2017-06-09] MEDS: CARVEDILOL 25 MG TABLET PO SCH (20:45)
[2017-06-09] MEDS: GABAPENTIN 300 MG CAPSULE PO SCH (20:45)
[2017-06-09] MEDS: ATORVASTATIN 20 MG TABLET PO SCH (20:45)
[2017-06-09] MEDS: INSULIN LISPRO 100 UNIT/ML SUBCUT SCH (21:15)
[2017-06-10 06:30] LABS: Basophils # 0.1 10*3/uL (0.0-0.2); Basophils % 0.9 % (0.0-0.8); Eosinophils # 0.2 10*3/uL (0.0-0.87); Eosinophils % 2.5 % (0.00-10.9); Hematocrit 33.3 VOL% (35.7-47.0); Hemoglobin 11.3 GM/DL (12.0-16.0); Immature Granulocytes % 0.3 %; Immature Granulocytes Absolute 0.02 #; Lymphocytes # 2.8 10*3/uL (1.4-4.0); Lymphocytes % 44.1 % (21.3-54.2); Mean Corpuscular HGB Conc 33.9 GM/DL (32-36); Mean Corpuscular Hemoglobin 28 PG (27-34); Mean Corpuscular Volume 81.2 FL (87-102); Mean Platelet Volume 11.1 FL (9.6-12.0); Monocytes # 0.8 10*3/uL (0.11-0.8); Monocytes % 12.3 % (1.7-12.7); Neutrophils # 2.5 10*3/uL (1.4-7.4); Neutrophils % 39.9 % (38.7-73.9); Platelet Count 250 T/CUMM (130-400); Red Cell Distribution Width 13.9 % (9.3-17.3); White Blood Count 6.3 T/CUMM (4-12)
[2017-06-10 06:57] LABS: Osmolality,Calculated 291.4 MOS/KG (273-304); Potassium 3.3 MMOL/L (3.5-5.1)
[2017-06-10] MEDS ORDERED: MAGNESIUM CITRATE 300 ML BOTTLE PO ONE (07:57)
[2017-06-10] MEDS ORDERED: POTASSIUM CHLORIDE 20 MEQ TABLET PO ONE ×2 (07:58→09:11)
[2017-06-10] MEDS ORDERED: BISACODYL 5 MG TABLET PO ONE (07:58)
[2017-06-10] MEDS: CARVEDILOL 25 MG TABLET PO SCH ×2 (08:56→16:37)
[2017-06-10] MEDS: amLODIPine 10 MG TABLET PO SCH ×2 (08:57→12:56)
[2017-06-10] MEDS: PANTOPRAZOLE 40 MG TABLET PO SCH (08:57)
[2017-06-10] MEDS: POLYETHYLENE GLYCOL POWDER 17 GM PACK PO SCH (08:58)
[2017-06-10] MEDS: ASPIRIN 325 MG TABLET PO SCH (08:59)
[2017-06-10] MEDS ORDERED: FUROSEMIDE 20 MG TABLET PO SCH (09:00)
[2017-06-10] MEDS ORDERED: cloNIDine 0.1 MG TABLET PO SCH (09:00)
[2017-06-10] MEDS: DILTIAZEM CD 180 MG CAPSULE PO SCH ×2 (09:00→12:56)
[2017-06-10] MEDS ORDERED: Insulin Degludec [Tresiba Flextouch U-200] SUBCUT SCH (09:00)
[2017-06-10] MEDS: APIXABAN 5 MG TABLET PO SCH ×2 (09:01→21:40)
[2017-06-10] MEDS: POTASSIUM CHLORIDE 20 MEQ PACK PO SCH (09:01)
[2017-06-10] MEDS: hydroCHLOROthiazide 25 MG TABLET PO SCH (09:01)
[2017-06-10] MEDS: INSULIN GLARGINE 100 UNIT/ML SUBCUT SCH (09:02)
[2017-06-10] MEDS ORDERED: DEXTROSE 50% 25 GM/50 ML VIAL IV PRN (09:06)
[2017-06-10] MEDS ORDERED: GLUCAGON 1 MG VIAL IM PRN (09:06)
[2017-06-10] MEDS: INSULIN LISPRO 100 UNIT/ML SUBCUT SCH ×4 (09:11→21:39)
[2017-06-10] MEDS: SODIUM CHLORIDE 0.45% 1,000 ML IV SCH ×2 (09:11→10:25)
[2017-06-10] MEDS ORDERED: amLODIPine 5 MG TABLET PO SCH (09:30)
[2017-06-10] MEDS: niCARdipine INJ 25 MG in SODIUM CHLORIDE 0.9% 240 ML IV SCH (10:34)
[2017-06-10] MEDS: DILTIAZEM CD 240 MG CAPSULE PO SCH (10:34)
[2017-06-10] MEDS: Liraglutide [Victoza 2-Pak] 1.2 MG SUBCUT SCH (10:37)
[2017-06-10] MEDS ORDERED: amLODIPine 5 MG TABLET PO ONE (11:05)
[2017-06-10] MEDS: METHYLNALTREXONE 12 MG/0.6 ML VIAL SUBCUT SCH (12:48)
[2017-06-10] MEDS: GABAPENTIN 300 MG CAPSULE PO SCH (21:40)
[2017-06-10] MEDS: ATORVASTATIN 20 MG TABLET PO SCH (21:40)
[2017-06-11 06:04] LABS: Calcium 8.5 MG/DL (8.5-10.1); Osmolality,Calculated 296.5 MOS/KG (273-304); Potassium 4.3 MMOL/L (3.5-5.1)
[2017-06-11] MEDS: INSULIN LISPRO 100 UNIT/ML SUBCUT SCH (08:20)
[2017-06-11] MEDS ORDERED: amLODIPine 5 MG TABLET PO SCH (09:00)
[2017-06-11] MEDS: POTASSIUM CHLORIDE 20 MEQ PACK PO SCH (09:12)
[2017-06-11] MEDS: PANTOPRAZOLE 40 MG TABLET PO SCH (09:12)
[2017-06-11] MEDS: hydroCHLOROthiazide 25 MG TABLET PO SCH (09:13)
[2017-06-11] MEDS: CARVEDILOL 25 MG TABLET PO SCH (09:13)
[2017-06-11] MEDS: APIXABAN 5 MG TABLET PO SCH (09:13)
[2017-06-11] MEDS: ASPIRIN 325 MG TABLET PO SCH (09:13)
[2017-06-11] MEDS: DILTIAZEM CD 240 MG CAPSULE PO SCH (09:14)
[2017-06-11] MEDS: POLYETHYLENE GLYCOL POWDER 17 GM PACK PO SCH (09:14)
[2017-06-11] MEDS: INSULIN GLARGINE 100 UNIT/ML SUBCUT SCH (09:14)
[2017-06-11] MEDS: METHYLNALTREXONE 12 MG/0.6 ML VIAL SUBCUT SCH (09:14)
[2017-06-11] MEDS: Liraglutide [Victoza 2-Pak] 1.2 MG SUBCUT SCH (09:45)
[2017-06-11 12:07] VITALS: BP 135/76
== END 2017-06-11 13:38 | disposition home or self-care (01) | DRG 305 ==
LOC: N.ED 05:10 → N.EDINP 09:35 → N.CC 15:52 → N.TELES 06-10 14:48
PROVIDERS: ADMIT Internal Medicine; ATTEND Internal Medicine

== ENCOUNTER 2017-12-08 11:28 | Inpatient (IN) ==
[2017-12-08] MEDS ORDERED: DILTIAZEM 50 MG/10 ML VIAL IV STA (12:05)
[2017-12-08 12:34] LABS: Basophils % 0.5 % (0.0-0.8); Eosinophils # 0.2 10*3/uL (0.0-0.87); Eosinophils % 2.2 % (0.00-10.9); Immature Granulocytes % 0.3 %; Immature Granulocytes Absolute 0.02 #; Lymphocytes # 2.5 10*3/uL (1.4-4.0); Lymphocytes % 32.8 % (21.3-54.2); Mean Corpuscular HGB Conc 33.3 GM/DL (32-36); Mean Corpuscular Hemoglobin 27 PG (27-34); Mean Corpuscular Volume 81.1 FL (87-102); Mean Platelet Volume 10.9 FL (9.6-12.0); Monocytes # 0.6 10*3/uL (0.11-0.8); Monocytes % 8.2 % (1.7-12.7); Neutrophils # 4.3 10*3/uL (1.4-7.4); Platelet Count 255 T/CUMM (130-400); Red Blood Count 4.44 MC/CUMM (3.8-5.5); Red Cell Distribution Width 13.4 % (9.3-17.3); White Blood Count 7.7 T/CUMM (4-12)
[2017-12-08 12:41] LABS: PT Patient Result 10.3 SECS; Partial Thromboplastin Time 25.8 SECS (0-40)
[2017-12-08 12:50] LABS: Alanine Aminotransferase 24 U/L (13-56); Albumin 2.9 G/DL (3.4-5.0); Alkaline Phosphatase 126 U/L (45-117); Aspartate Amino Transferase 20 U/L (0-37); Bilirubin,Total < 0.39 MG/DL (0.2-1.0); Blood Urea Nitrogen 37 MG/DL (7-18); CKMB % 4.3 %; Calcium 9.7 MG/DL (8.5-10.1); Glucose 104 MG/DL (74-106); Osmolality,Calculated 285.5 MOS/KG (273-304); Potassium 3.7 MMOL/L (3.5-5.1); Sodium 139 MMOL/L (136-145); Total Protein 6.8 G/DL (6.4-8.3)
[2017-12-08 12:51] LABS: Troponin I 0.364 NG/ML (0.00-0.045)
[2017-12-08] MEDS ORDERED: ACETAMINOPHEN 325 MG TABLET PO PRN (13:52)
[2017-12-08] MEDS ORDERED: MAGNESIUM SULF RIDER 2 GM in PREMIX 1 EACH IV PRN ×2 (13:52→14:11)
[2017-12-08] MEDS ORDERED: MAGNESIUM SULF RIDER 4 GM in PREMIX 1 EACH IV PRN ×2 (13:52→14:11)
[2017-12-08] MEDS ORDERED: oxyCODONE/ACETAMINOPHEN 5-325 MG TABLET PO PRN (14:11)
[2017-12-08] MEDS ORDERED: FUROSEMIDE 20 MG TABLET PO PRN (14:11)
[2017-12-08] MEDS ORDERED: GLUCAGON 1 MG VIAL IM PRN ×2 (14:22→16:40)
[2017-12-08] MEDS ORDERED: DEXTROSE 50% 25 GM/50 ML VIAL IV PRN ×2 (14:22→16:40)
[2017-12-08] MEDS: SODIUM CHLORIDE 0.45% 1,000 ML IV SCH (16:35)
[2017-12-08] MEDS: INSULIN REGULAR 100 UNIT/ML SUBCUT SCH ×2 (16:38→21:00)
[2017-12-08] MEDS ORDERED: diphenhydrAMINE CAP 25 MG CAPSULE PO PRN (17:18)
[2017-12-08] MEDS: CARVEDILOL 25 MG TABLET PO SCH (18:32)
[2017-12-08] MEDS ORDERED: DILTIAZEM 50 MG/10 ML VIAL IV ONE (19:25)
[2017-12-08] MEDS ORDERED: SODIUM CHLORIDE 0.9% 100 ML IV ONE (19:27)
[2017-12-08] MEDS: APIXABAN 5 MG TABLET PO SCH (20:59)
[2017-12-08] MEDS: GABAPENTIN 300 MG CAPSULE PO SCH (21:00)
[2017-12-09 05:57] LABS: Basophils # 0.1 10*3/uL (0.0-0.2); Basophils % 0.9 % (0.0-0.8); Eosinophils # 0.2 10*3/uL (0.0-0.87); Eosinophils % 3.4 % (0.00-10.9); Hematocrit 32.3 VOL% (35.7-47.0); Immature Granulocytes % 0.2 %; Immature Granulocytes Absolute 0.01 #; Lymphocytes # 2.4 10*3/uL (1.4-4.0); Lymphocytes % 42.2 % (21.3-54.2); Mean Corpuscular HGB Conc 34.1 GM/DL (32-36); Mean Corpuscular Hemoglobin 27 PG (27-34); Mean Corpuscular Volume 80.3 FL (87-102); Mean Platelet Volume 11.1 FL (9.6-12.0); Monocytes # 0.6 10*3/uL (0.11-0.8); Monocytes % 10.5 % (1.7-12.7); Neutrophils # 2.4 10*3/uL (1.4-7.4); Neutrophils % 42.8 % (38.7-73.9); Platelet Count 209 T/CUMM (130-400); Red Blood Count 4.02 MC/CUMM (3.8-5.5); Red Cell Distribution Width 13.8 % (9.3-17.3); White Blood Count 5.6 T/CUMM (4-12)
[2017-12-09 06:08] LABS: Calcium 9.2 MG/DL (8.5-10.1); Osmolality,Calculated 289.4 MOS/KG (273-304); Potassium 3.3 MMOL/L (3.5-5.1)
[2017-12-09 06:12] LABS: Alanine Aminotransferase 21 U/L (13-56); Albumin 2.5 G/DL (3.4-5.0); Alkaline Phosphatase 94 U/L (45-117); Aspartate Amino Transferase 22 U/L (0-37); Bilirubin,Total < 0.39 MG/DL (0.2-1.0); Blood Urea Nitrogen 41 MG/DL (7-18); Calcium 8.8 MG/DL (8.5-10.1); Glucose 100 MG/DL (74-106); Potassium 3.2 MMOL/L (3.5-5.1); Sodium 143 MMOL/L (136-145); Total Protein 6.1 G/DL (6.4-8.3)
[2017-12-09] MEDS: SODIUM CHLORIDE 0.45% 1,000 ML IV SCH ×3 (06:38→14:48)
[2017-12-09] MEDS: POTASSIUM CHLORIDE 20 MEQ TABLET PO PRN ×3 (06:53→17:46)
[2017-12-09] MEDS: POTASSIUM CHLORIDE 20 MEQ PACK PO SCH (08:48)
[2017-12-09] MEDS: hydroCHLOROthiazide 25 MG TABLET PO SCH (08:49)
[2017-12-09] MEDS: CARVEDILOL 25 MG TABLET PO SCH ×2 (08:50→16:13)
[2017-12-09] MEDS: INSULIN GLARGINE 100 UNIT/ML SUBCUT SCH (08:50)
[2017-12-09] MEDS: PANTOPRAZOLE 40 MG TABLET PO SCH (08:50)
[2017-12-09] MEDS: APIXABAN 5 MG TABLET PO SCH ×2 (08:50→20:29)
[2017-12-09] MEDS: ASPIRIN EC 81 MG TABLET PO SCH (08:50)
[2017-12-09] MEDS: INSULIN REGULAR 100 UNIT/ML SUBCUT SCH ×4 (08:51→20:30)
[2017-12-09] MEDS ORDERED: Liraglutide [Victoza 2-Pak] 1.2 MG SUBCUT SCH (09:00)
[2017-12-09 09:16] LABS: Apearance,Urine CLEAR (Clear); Bacteria,Urine Occasional /HPF (Few); Bilirubin,Urine Negative (Negative); Blood, Urine Negative (Negative); Glucose,Urine (UA) Negative (Negative); Ketones,Urine Negative (Negative); Mucus,Urine Occasional /LPF (Occasional); Nitrite,Urine Negative (Negative); Protein,Urine 100 MG/DL; RBC,Urine 1 /HPF (0-4); Squamous Epithelial Cell,Urine Occasional /HPF (0-10); Urine Color Straw (Yellow); Urine Specific Gravity 1.009 (1.001-1.035); Urine Urobilinogen < 2.0 EU/DL (0.2-1.0); WBC,Urine <1 /HPF (0-6)
[2017-12-09 09:36] LABS: Barbiturates Screen,Urine Negative (Negative); Benzodiazepines Screen,Urine Negative (Negative); Cannabinoid Screen,Urine Negative (Negative); Opiate Screen,Urine Negative (Negative); Phencyclidine Screen,Urine Negative (Negative)
[2017-12-09] MEDS: SOTALOL 80 MG TABLET PO SCH ×2 (16:13→20:29)
[2017-12-09] MEDS: GABAPENTIN 300 MG CAPSULE PO SCH (20:29)
[2017-12-10 06:49] LABS: Calcium 9.3 MG/DL (8.5-10.1); Osmolality,Calculated 287.4 MOS/KG (273-304); Potassium 4.2 MMOL/L (3.5-5.1)
[2017-12-10] MEDS: POTASSIUM CHLORIDE 20 MEQ PACK PO SCH (08:15)
[2017-12-10] MEDS: APIXABAN 5 MG TABLET PO SCH ×2 (08:16→20:47)
[2017-12-10] MEDS: INSULIN REGULAR 100 UNIT/ML SUBCUT SCH ×4 (08:16→20:48)
[2017-12-10] MEDS: INSULIN GLARGINE 100 UNIT/ML SUBCUT SCH (08:16)
[2017-12-10] MEDS: SOTALOL 80 MG TABLET PO SCH ×2 (08:16→20:47)
[2017-12-10] MEDS: ASPIRIN EC 81 MG TABLET PO SCH (08:17)
[2017-12-10] MEDS: CARVEDILOL 25 MG TABLET PO SCH ×2 (08:17→16:07)
[2017-12-10] MEDS: PANTOPRAZOLE 40 MG TABLET PO SCH (08:17)
[2017-12-10] MEDS: hydroCHLOROthiazide 25 MG TABLET PO SCH (08:17)
[2017-12-10] MEDS: GABAPENTIN 300 MG CAPSULE PO SCH (20:47)
[2017-12-11 06:52] LABS: Osmolality,Calculated 291.3 MOS/KG (273-304); Potassium 3.8 MMOL/L (3.5-5.1)
[2017-12-11] MEDS: hydroCHLOROthiazide 25 MG TABLET PO SCH (08:30)
[2017-12-11] MEDS: POTASSIUM CHLORIDE 20 MEQ PACK PO SCH (08:30)
[2017-12-11] MEDS: PANTOPRAZOLE 40 MG TABLET PO SCH (08:30)
[2017-12-11] MEDS: CARVEDILOL 25 MG TABLET PO SCH (08:31)
[2017-12-11] MEDS: ASPIRIN EC 81 MG TABLET PO SCH (08:31)
[2017-12-11] MEDS: POTASSIUM CHLORIDE 20 MEQ TABLET PO PRN (08:31)
[2017-12-11] MEDS: SOTALOL 80 MG TABLET PO SCH (08:31)
[2017-12-11] MEDS: INSULIN GLARGINE 100 UNIT/ML SUBCUT SCH (08:32)
[2017-12-11] MEDS: APIXABAN 5 MG TABLET PO SCH (08:32)
[2017-12-11] MEDS: INSULIN REGULAR 100 UNIT/ML SUBCUT SCH ×2 (08:34→12:44)
[2017-12-11 12:59] VITALS: BP 156/84
[2017-12-11] MEDS ORDERED: CARVEDILOL 12.5 MG TABLET PO SCH (17:00)
== END 2017-12-11 15:20 | disposition home or self-care (01) | DRG 310 ==
LOC: N.EDINP 11:28 → N.ED 11:28 → N.2W 15:42 → N.TELEN 18:00
PROVIDERS: ADMIT Internal Medicine Cardiovascular Disease; ATTEND Internal Medicine Cardiovascular Disease

== ENCOUNTER 2018-01-16 12:11 | Inpatient (IN) ==
[2018-01-16] MEDS ORDERED: FUROSEMIDE 40 MG/4 ML VIAL IV STA (13:22)
[2018-01-16 13:46] LABS: Basophils % 0.3 % (0.0-0.8); Eosinophils # 0.1 10*3/uL (0.0-0.87); Eosinophils % 0.6 % (0.00-10.9); Hematocrit 25.6 VOL% (35.7-47.0); Hemoglobin 8.2 GM/DL (12.0-16.0); Immature Granulocytes % 0.4 %; Immature Granulocytes Absolute 0.04 #; Lymphocytes # 0.9 10*3/uL (1.4-4.0); Lymphocytes % 8.1 % (21.3-54.2); Mean Corpuscular Hemoglobin 27 PG (27-34); Mean Corpuscular Volume 82.8 FL (87-102); Mean Platelet Volume 9.8 FL (9.6-12.0); Monocytes # 0.8 10*3/uL (0.11-0.8); Monocytes % 6.9 % (1.7-12.7); Neutrophils # 9.4 10*3/uL (1.4-7.4); Neutrophils % 83.7 % (38.7-73.9); Platelet Count 306 T/CUMM (130-400); Red Blood Count 3.09 MC/CUMM (3.8-5.5); Red Cell Distribution Width 14.6 % (9.3-17.3); White Blood Count 11.2 T/CUMM (4-12)
[2018-01-16 13:55] LABS: Apearance,Urine Clear (Clear); Bilirubin,Urine Negative (Negative); Blood, Urine Large mg/dL (Negative); Glucose,Urine (UA) 500 mg/dL (Negative); Ketones,Urine Negative (Negative); Nitrite,Urine Negative (Negative); Protein,Urine 100 MG/DL; Urine Color Colorless (Yellow); Urine Urobilinogen 0.2 EU/DL (0.2-1.0); WBC,Urine 0-3 /HPF (0-6)
[2018-01-16 13:56] LABS: Bacteria,Urine Few /HPF (Few); Mucus,Urine Few /LPF (Occasional); Squamous Epithelial Cell,Urine Few /HPF (0-10)
[2018-01-16 14:08] LABS: Albumin 1.9 G/DL (3.4-5.0); Bilirubin,Total 0.4 MG/DL (0.2-1.0); Calcium 8.9 MG/DL (8.5-10.1); Osmolality,Calculated 290.5 MOS/KG (273-304); Potassium 3.9 MMOL/L (3.5-5.1); Total Protein 6.1 G/DL (6.4-8.3)
[2018-01-16] MEDS ORDERED: GLUCAGON 1 MG VIAL IM PRN (15:02)
[2018-01-16] MEDS ORDERED: DEXTROSE 50% 25 GM/50 ML VIAL IV PRN (15:02)
[2018-01-16] MEDS ORDERED: POTASSIUM CHLORIDE RIDER 10 MEQ in PREMIX 1 EACH IV PRN (15:43)
[2018-01-16] MEDS ORDERED: DAPTOmycin 500 MG VIAL IV SCH (16:00)
[2018-01-16] MEDS: INSULIN REGULAR 100 UNIT/ML SUBCUT SCH ×2 (18:19→20:39)
[2018-01-16] MEDS: LACTULOSE 20 GM/30 ML UDCUP PO SCH ×2 (18:20→20:41)
[2018-01-16] MEDS: FUROSEMIDE 40 MG/4 ML VIAL IV SCH (18:20)
[2018-01-16] MEDS: CARVEDILOL 12.5 MG TABLET PO SCH (18:35)
[2018-01-16] MEDS: ACETAMINOPHEN 325 MG TABLET PO PRN (19:19)
[2018-01-16] MEDS ORDERED: MORPHINE 4 MG/1 ML VIAL IV ONE (19:38)
[2018-01-16] MEDS ORDERED: MORPHINE 4 MG/1 ML VIAL ONE (19:39)
[2018-01-16] MEDS: ALBUTEROL/IPRATROPIUM 3 ML NEB RESP TX PRN (19:55)
[2018-01-16] MEDS: APIXABAN 5 MG TABLET PO SCH (20:40)
[2018-01-16] MEDS: DOXAZOSIN 1 MG TABLET PO SCH (20:40)
[2018-01-16] MEDS: GABAPENTIN 300 MG CAPSULE PO SCH (20:41)
[2018-01-16] MEDS: oxyCODONE/ACETAMINOPHEN 5-325 MG TABLET PO PRN (21:24)
[2018-01-16] MEDS: MUPIROCIN 2% OINT 22 GM TUBE TOP SCH (23:03)
[2018-01-17] MEDS: oxyCODONE/ACETAMINOPHEN 5-325 MG TABLET PO PRN ×3 (04:15→21:46)
[2018-01-17 04:30] LABS: Basophils % 0.3 % (0.0-0.8); Eosinophils % 0.3 % (0.00-10.9); Hematocrit 28.8 VOL% (35.7-47.0); Hemoglobin 9.1 GM/DL (12.0-16.0); Immature Granulocytes % 0.3 %; Immature Granulocytes Absolute 0.04 #; Lymphocytes # 0.8 10*3/uL (1.4-4.0); Lymphocytes % 6.9 % (21.3-54.2); Mean Corpuscular HGB Conc 31.6 GM/DL (32-36); Mean Corpuscular Hemoglobin 26 PG (27-34); Mean Corpuscular Volume 82.8 FL (87-102); Monocytes # 0.7 10*3/uL (0.11-0.8); Monocytes % 5.4 % (1.7-12.7); Neutrophils # 10.5 10*3/uL (1.4-7.4); Neutrophils % 86.8 % (38.7-73.9); Platelet Count 277 T/CUMM (130-400); Red Blood Count 3.48 MC/CUMM (3.8-5.5); Red Cell Distribution Width 14.5 % (9.3-17.3); White Blood Count 12.1 T/CUMM (4-12)
[2018-01-17 04:55] LABS: Osmolality,Calculated 288.8 MOS/KG (273-304); Risk Ratio 4.84; VLDL CHOLESTEROL 29.4 MG/DL
[2018-01-17 05:17] LABS: Hypochromasia 1+; Platelet Estimate Adequate
[2018-01-17] MEDS ORDERED: INSULIN DEGLUDEC 50 UNIT SUBCUT SCH (07:30)
[2018-01-17] MEDS ORDERED: MAGNESIUM SULF RIDER 4 GM in PREMIX 1 EACH IV PRN (08:59)
[2018-01-17] MEDS ORDERED: MAGNESIUM SULF RIDER 2 GM in PREMIX 1 EACH IV PRN (08:59)
[2018-01-17] MEDS ORDERED: LEVOFLOXACIN 250 MG TABLET PO SCH (09:00)
[2018-01-17] MEDS ORDERED: Liraglutide [Victoza 2-Pak] 1.2 MG SUBCUT SCH (09:00)
[2018-01-17] MEDS: INSULIN REGULAR 100 UNIT/ML SUBCUT SCH ×4 (09:08→21:40)
[2018-01-17] MEDS: POTASSIUM CHLORIDE 20 MEQ PACK PO SCH (09:09)
[2018-01-17] MEDS: FUROSEMIDE 40 MG/4 ML VIAL IV SCH ×2 (09:10→16:12)
[2018-01-17] MEDS: CARVEDILOL 12.5 MG TABLET PO SCH ×2 (09:11→19:59)
[2018-01-17] MEDS: ASPIRIN EC 81 MG TABLET PO SCH (09:11)
[2018-01-17] MEDS: APIXABAN 5 MG TABLET PO SCH (09:11)
[2018-01-17] MEDS: DOXAZOSIN 1 MG TABLET PO SCH ×2 (09:12→21:39)
[2018-01-17] MEDS: hydroCHLOROthiazide 25 MG TABLET PO SCH (09:13)
[2018-01-17] MEDS: MULTIVITAMIN (CENTRUM) TABLET PO SCH (09:13)
[2018-01-17] MEDS: LACTULOSE 20 GM/30 ML UDCUP PO SCH ×4 (09:14→21:39)
[2018-01-17] MEDS: MUPIROCIN 2% OINT 22 GM TUBE TOP SCH ×3 (09:14→21:40)
[2018-01-17] MEDS: IRON (CARBONYL)/VIT C/B12/FA TABLET PO SCH (09:19)
[2018-01-17] MEDS: PANTOPRAZOLE 40 MG TABLET PO SCH (09:42)
[2018-01-17] MEDS: GABAPENTIN 300 MG CAPSULE PO SCH (21:40)
[2018-01-17] MEDS: SODIUM CHLORIDE 0.9% 1,000 ML IV SCH (21:46)
[2018-01-18 04:49] LABS: Basophils # 0.1 10*3/uL (0.0-0.2); Basophils % 0.5 % (0.0-0.8); Eosinophils # 0.3 10*3/uL (0.0-0.87); Eosinophils % 2.3 % (0.00-10.9); Hematocrit 28.8 VOL% (35.7-47.0); Hemoglobin 8.9 GM/DL (12.0-16.0); Immature Granulocytes % 0.4 %; Immature Granulocytes Absolute 0.05 #; Lymphocytes % 8.5 % (21.3-54.2); Mean Corpuscular HGB Conc 30.9 GM/DL (32-36); Mean Corpuscular Hemoglobin 26 PG (27-34); Mean Corpuscular Volume 84.2 FL (87-102); Mean Platelet Volume 10.7 FL (9.6-12.0); Monocytes # 0.9 10*3/uL (0.11-0.8); Monocytes % 7.4 % (1.7-12.7); Neutrophils # 9.9 10*3/uL (1.4-7.4); Neutrophils % 80.9 % (38.7-73.9); Platelet Count 340 T/CUMM (130-400); Red Blood Count 3.42 MC/CUMM (3.8-5.5); Red Cell Distribution Width 14.7 % (9.3-17.3); White Blood Count 12.2 T/CUMM (4-12)
[2018-01-18 05:15] LABS: Apearance,Urine CLOUDY (Clear); Bilirubin,Urine Negative (Negative); Blood, Urine Large mg/dL (Negative); Glucose,Urine (UA) Negative (Negative); Ketones,Urine Negative (Negative); Nitrite,Urine Negative (Negative); Protein,Urine 100 MG/DL; RBC,Urine 98 /HPF (0-4); Squamous Epithelial Cell,Urine Occasional /HPF (0-10); Urine Color Amber (Yellow); Urine Specific Gravity 1.012 (1.001-1.035); Urine Urobilinogen < 2.0 EU/DL (0.2-1.0); WBC,Urine 14 /HPF (0-6)
[2018-01-18 05:41] LABS: Albumin 1.7 G/DL (3.4-5.0); Bilirubin,Total 0.6 MG/DL (0.2-1.0); Calcium 8.7 MG/DL (8.5-10.1); Osmolality,Calculated 284.1 MOS/KG (273-304); Potassium 4.3 MMOL/L (3.5-5.1); Total Protein 6.5 G/DL (6.4-8.3)
[2018-01-18] MEDS: SODIUM CHLORIDE 0.9% 1,000 ML IV SCH ×4 (05:43→21:20)
[2018-01-18] MEDS ORDERED: cefTRIAXone 1,000 MG in SYRINGE 1 EACH IV SCH (09:00)
[2018-01-18] MEDS: FUROSEMIDE 40 MG/4 ML VIAL IV SCH (10:13)
[2018-01-18] MEDS: POTASSIUM CHLORIDE 20 MEQ PACK PO SCH (10:14)
[2018-01-18] MEDS: DOXAZOSIN 1 MG TABLET PO SCH ×2 (10:15→21:08)
[2018-01-18] MEDS: hydroCHLOROthiazide 25 MG TABLET PO SCH (10:15)
[2018-01-18] MEDS: IRON (CARBONYL)/VIT C/B12/FA TABLET PO SCH (10:16)
[2018-01-18] MEDS: CARVEDILOL 12.5 MG TABLET PO SCH ×2 (10:17→16:43)
[2018-01-18] MEDS: PANTOPRAZOLE 40 MG TABLET PO SCH ×2 (10:17→21:09)
[2018-01-18] MEDS: ASPIRIN EC 81 MG TABLET PO SCH (10:17)
[2018-01-18] MEDS: APIXABAN 5 MG TABLET PO SCH ×2 (10:17→21:12)
[2018-01-18] MEDS: INSULIN REGULAR 100 UNIT/ML SUBCUT SCH ×4 (10:23→21:09)
[2018-01-18] MEDS: MULTIVITAMIN (CENTRUM) TABLET PO SCH (10:23)
[2018-01-18] MEDS: MUPIROCIN 2% OINT 22 GM TUBE TOP SCH ×3 (10:24→21:09)
[2018-01-18 12:59] LABS: Hepatitis A Ab IgM Quant 0.13 Index; Hepatitis A Ab IgM Result Negative (Negative); Hepatitis B Core IgM Quant < 0.05 Index; Hepatitis B Core IgM Result Negative (Negative); Hepatitis B Surface Ag Quant 0.13 Index; Hepatitis B Surface Ag Result Negative (Negative); Hepatitis C Virus Ab Quant 0.27 Index; Hepatitis C Virus Ab Result Negative (Negative)
[2018-01-18 14:57] LABS: Amorphous Crystals,Urine Occasional /HPF (Few); Apearance,Urine CLOUDY (Clear); Bacteria,Urine Occasional /HPF (Few); Bilirubin,Urine Negative (Negative); Blood, Urine Large mg/dL (Negative); Glucose,Urine (UA) 50 mg/dL (Negative); Ketones,Urine Negative (Negative); Nitrite,Urine Negative (Negative); Protein,Urine 100 MG/DL; RBC,Urine 20 /HPF (0-4); Squamous Epithelial Cell,Urine Occasional /HPF (0-10); Urine Color Yellow (Yellow); Urine Specific Gravity 1.011 (1.001-1.035); Urine Urobilinogen < 2.0 EU/DL (0.2-1.0); WBC,Urine 3 /HPF (0-6)
[2018-01-18] MEDS: CEFTAROLINE 300 MG in SODIUM CHLORIDE 0.9% 100 ML IV SCH (16:43)
[2018-01-18] MEDS: GABAPENTIN 300 MG CAPSULE PO SCH (21:08)
[2018-01-19] MEDS: CEFTAROLINE 300 MG in SODIUM CHLORIDE 0.9% 100 ML IV SCH ×2 (04:08→15:16)
[2018-01-19] MEDS: SODIUM CHLORIDE 0.9% 1,000 ML IV SCH ×4 (04:11→22:38)
[2018-01-19 04:28] LABS: Basophils # 0.1 10*3/uL (0.0-0.2); Basophils % 0.8 % (0.0-0.8); Eosinophils # 0.5 10*3/uL (0.0-0.87); Eosinophils % 5.6 % (0.00-10.9); Hematocrit 24.9 VOL% (35.7-47.0); Hemoglobin 7.9 GM/DL (12.0-16.0); Immature Granulocytes % 0.7 %; Immature Granulocytes Absolute 0.06 #; Lymphocytes # 1.2 10*3/uL (1.4-4.0); Lymphocytes % 13.2 % (21.3-54.2); Mean Corpuscular HGB Conc 31.7 GM/DL (32-36); Mean Corpuscular Hemoglobin 27 PG (27-34); Mean Corpuscular Volume 84.7 FL (87-102); Mean Platelet Volume 9.9 FL (9.6-12.0); Monocytes # 0.8 10*3/uL (0.11-0.8); Monocytes % 9.2 % (1.7-12.7); Neutrophils # 6.3 10*3/uL (1.4-7.4); Neutrophils % 70.5 % (38.7-73.9); Platelet Count 366 T/CUMM (130-400); Red Blood Count 2.94 MC/CUMM (3.8-5.5); Red Cell Distribution Width 14.7 % (9.3-17.3); White Blood Count 8.9 T/CUMM (4-12)
[2018-01-19 05:46] LABS: Albumin 1.6 G/DL (3.4-5.0); Bilirubin,Total 0.4 MG/DL (0.2-1.0); Calcium 8.3 MG/DL (8.5-10.1); Potassium 4.5 MMOL/L (3.5-5.1); Total Protein 5.9 G/DL (6.4-8.3)
[2018-01-19] MEDS: INSULIN REGULAR 100 UNIT/ML SUBCUT SCH ×4 (08:47→21:06)
[2018-01-19] MEDS: DOXAZOSIN 1 MG TABLET PO SCH ×2 (10:24→21:12)
[2018-01-19] MEDS: CARVEDILOL 12.5 MG TABLET PO SCH (10:24)
[2018-01-19] MEDS: ASPIRIN EC 81 MG TABLET PO SCH (10:24)
[2018-01-19] MEDS: APIXABAN 5 MG TABLET PO SCH ×2 (10:25→21:06)
[2018-01-19] MEDS: IRON (CARBONYL)/VIT C/B12/FA TABLET PO SCH (10:25)
[2018-01-19] MEDS: MULTIVITAMIN (CENTRUM) TABLET PO SCH (10:25)
[2018-01-19] MEDS: POTASSIUM CHLORIDE 20 MEQ PACK PO SCH (10:26)
[2018-01-19] MEDS: PANTOPRAZOLE 40 MG TABLET PO SCH ×2 (10:27→21:05)
[2018-01-19] MEDS: hydroCHLOROthiazide 25 MG TABLET PO SCH (10:31)
[2018-01-19] MEDS: MUPIROCIN 2% OINT 22 GM TUBE TOP SCH ×3 (10:34→21:08)
[2018-01-19 11:41] LABS: Protein C Activity Plasma 125 % (70 - 150)
[2018-01-19 14:10] LABS: Protein S Activity Plasma 147 % (65 - 160)
[2018-01-19] MEDS: amLODIPine 5 MG TABLET PO SCH ×2 (15:05→21:05)
[2018-01-19] MEDS: oxyCODONE/ACETAMINOPHEN 5-325 MG TABLET PO PRN (15:05)
[2018-01-19] MEDS: CARVEDILOL 25 MG TABLET PO SCH (16:44)
[2018-01-19] MEDS: GABAPENTIN 300 MG CAPSULE PO SCH (21:06)
[2018-01-20] MEDS: CEFTAROLINE 300 MG in SODIUM CHLORIDE 0.9% 100 ML IV SCH ×2 (03:55→18:15)
[2018-01-20 05:34] LABS: Basophils # 0.1 10*3/uL (0.0-0.2); Basophils % 0.7 % (0.0-0.8); Eosinophils # 0.6 10*3/uL (0.0-0.87); Eosinophils % 7.3 % (0.00-10.9); Hematocrit 24.6 VOL% (35.7-47.0); Hemoglobin 7.4 GM/DL (12.0-16.0); Immature Granulocytes % 0.5 %; Immature Granulocytes Absolute 0.04 #; Lymphocytes # 1.3 10*3/uL (1.4-4.0); Lymphocytes % 15.8 % (21.3-54.2); Mean Corpuscular HGB Conc 30.1 GM/DL (32-36); Mean Corpuscular Hemoglobin 26 PG (27-34); Mean Corpuscular Volume 86.9 FL (87-102); Mean Platelet Volume 10.1 FL (9.6-12.0); Monocytes # 0.8 10*3/uL (0.11-0.8); Monocytes % 9.1 % (1.7-12.7); Neutrophils # 5.6 10*3/uL (1.4-7.4); Neutrophils % 66.6 % (38.7-73.9); Platelet Count 352 T/CUMM (130-400); Red Blood Count 2.83 MC/CUMM (3.8-5.5); Red Cell Distribution Width 14.8 % (9.3-17.3); White Blood Count 8.4 T/CUMM (4-12)
[2018-01-20 07:13] LABS: Alanine Aminotransferase 360 U/L (13-56); Albumin 1.7 G/DL (3.4-5.0); Alkaline Phosphatase 128 U/L (45-117); Aspartate Amino Transferase 546 U/L (0-37); Bilirubin,Total < 0.39 MG/DL (0.2-1.0); Blood Urea Nitrogen 47 MG/DL (7-18); Calcium 8.5 MG/DL (8.5-10.1); Glucose 119 MG/DL (74-106); Potassium 4.6 MMOL/L (3.5-5.1); Sodium 136 MMOL/L (136-145); Total Protein 5.9 G/DL (6.4-8.3)
[2018-01-20] MEDS: INSULIN REGULAR 100 UNIT/ML SUBCUT SCH ×4 (07:32→21:14)
[2018-01-20] MEDS: ONDANSETRON 4 MG/2 ML VIAL IV PRN (09:00)
[2018-01-20] MEDS: MUPIROCIN 2% OINT 22 GM TUBE TOP SCH ×3 (09:01→21:13)
[2018-01-20] MEDS: CARVEDILOL 25 MG TABLET PO SCH ×2 (09:01→17:40)
[2018-01-20] MEDS: DOXAZOSIN 1 MG TABLET PO SCH ×2 (09:01→21:12)
[2018-01-20] MEDS: APIXABAN 5 MG TABLET PO SCH ×2 (09:01→21:12)
[2018-01-20] MEDS: PANTOPRAZOLE 40 MG TABLET PO SCH ×2 (09:01→21:13)
[2018-01-20] MEDS: MULTIVITAMIN (CENTRUM) TABLET PO SCH (09:01)
[2018-01-20] MEDS: ASPIRIN EC 81 MG TABLET PO SCH (09:01)
[2018-01-20] MEDS: IRON (CARBONYL)/VIT C/B12/FA TABLET PO SCH (09:01)
[2018-01-20] MEDS: POTASSIUM CHLORIDE 20 MEQ PACK PO SCH (09:02)
[2018-01-20] MEDS: amLODIPine 5 MG TABLET PO SCH ×2 (09:02→21:13)
[2018-01-20] MEDS: SODIUM CHLORIDE 0.9% 1,000 ML IV SCH ×2 (10:15→15:00)
[2018-01-20 13:56] LABS: DRVVT Screen Ratio 1.4 ratio (0.0 - 1.1); INR 1.2
[2018-01-20] MEDS ORDERED: SODIUM CHLORIDE 0.9% 1,000 ML IV PRN (14:20)
[2018-01-20] MEDS ORDERED: FUROSEMIDE 40 MG/4 ML VIAL IV ONE (14:21)
[2018-01-20] MEDS ORDERED: SIMETHICONE CHEW 125 MG TABLET PO PRN (14:47)
[2018-01-20] MEDS: GABAPENTIN 300 MG CAPSULE PO SCH (21:12)
[2018-01-20] MEDS ORDERED: FUROSEMIDE 40 MG/4 ML VIAL ONE (21:17)
[2018-01-21] MEDS: CEFTAROLINE 300 MG in SODIUM CHLORIDE 0.9% 100 ML IV SCH ×2 (03:38→16:49)
[2018-01-21 06:05] LABS: Basophils % 0.5 % (0.0-0.8); Eosinophils # 0.6 10*3/uL (0.0-0.87); Eosinophils % 7.7 % (0.00-10.9); Hemoglobin 9.4 GM/DL (12.0-16.0); Immature Granulocytes % 0.6 %; Immature Granulocytes Absolute 0.05 #; Lymphocytes # 0.6 10*3/uL (1.4-4.0); Lymphocytes % 7.3 % (21.3-54.2); Mean Corpuscular HGB Conc 31.3 GM/DL (32-36); Mean Corpuscular Hemoglobin 28 PG (27-34); Monocytes # 0.5 10*3/uL (0.11-0.8); Monocytes % 6.6 % (1.7-12.7); Neutrophils % 77.3 % (38.7-73.9); Platelet Count 324 T/CUMM (130-400); Red Blood Count 3.41 MC/CUMM (3.8-5.5); Red Cell Distribution Width 14.6 % (9.3-17.3); White Blood Count 7.8 T/CUMM (4-12)
[2018-01-21 06:26] LABS: Calcium 8.9 MG/DL (8.5-10.1)
[2018-01-21 06:32] LABS: Calcium 8.6 MG/DL (8.5-10.1); Osmolality,Calculated 289.1 MOS/KG (273-304); Potassium 4.9 MMOL/L (3.5-5.1)
[2018-01-21 07:58] LABS: Alanine Aminotransferase 334 U/L (13-56); Albumin 1.8 G/DL (3.4-5.0); Alkaline Phosphatase 136 U/L (45-117); Aspartate Amino Transferase 333 U/L (0-37); Bilirubin,Direct < 0.100 MG/DL (0.0-0.20); Bilirubin,Indirect 0.3 MG/DL (0.0-1.0); Bilirubin,Total < 0.39 MG/DL (0.2-1.0); CKMB % 0.4 %; Total Protein 6.2 G/DL (6.4-8.3)
[2018-01-21] MEDS: INSULIN REGULAR 100 UNIT/ML SUBCUT SCH ×4 (08:47→21:08)
[2018-01-21] MEDS: APIXABAN 5 MG TABLET PO SCH ×2 (08:47→20:52)
[2018-01-21] MEDS: ASPIRIN EC 81 MG TABLET PO SCH (08:48)
[2018-01-21] MEDS: CARVEDILOL 25 MG TABLET PO SCH ×2 (08:48→16:50)
[2018-01-21] MEDS: POTASSIUM CHLORIDE 20 MEQ PACK PO SCH (08:48)
[2018-01-21] MEDS: amLODIPine 5 MG TABLET PO SCH ×2 (08:48→20:50)
[2018-01-21] MEDS: IRON (CARBONYL)/VIT C/B12/FA TABLET PO SCH (08:48)
[2018-01-21] MEDS: MULTIVITAMIN (CENTRUM) TABLET PO SCH (08:48)
[2018-01-21] MEDS: DOXAZOSIN 1 MG TABLET PO SCH ×2 (08:48→20:52)
[2018-01-21] MEDS: PANTOPRAZOLE 40 MG TABLET PO SCH ×2 (08:49→20:52)
[2018-01-21] MEDS: MUPIROCIN 2% OINT 22 GM TUBE TOP SCH ×3 (08:49→21:06)
[2018-01-21] MEDS: SODIUM BICARB INJ 50 MEQ in SODIUM CHLORIDE 0.45% 1,000 ML IV SCH (09:46)
[2018-01-21] MEDS: SODIUM CHLORIDE 0.9% 1,000 ML IV SCH (09:47)
[2018-01-21 12:18] LABS: Apearance,Urine Slightly Hazy (Clear); Bacteria,Urine Occasional /HPF (Few); Bilirubin,Urine Negative (Negative); Blood, Urine Moderate mg/dL (Negative); Glucose,Urine (UA) 50 mg/dL (Negative); Ketones,Urine Negative (Negative); Mucus,Urine Occasional /LPF (Occasional); Nitrite,Urine Negative (Negative); Protein,Urine 100 MG/DL; RBC,Urine 10 /HPF (0-4); Squamous Epithelial Cell,Urine Occasional /HPF (0-10); Urine Color Yellow (Yellow); Urine Specific Gravity 1.006 (1.001-1.035); Urine Urobilinogen < 2.0 EU/DL (0.2-1.0); WBC,Urine 3 /HPF (0-6)
[2018-01-21] MEDS ORDERED: diphenhydrAMINE CAP 25 MG CAPSULE PO ONE (20:30)
[2018-01-21] MEDS: GABAPENTIN 300 MG CAPSULE PO SCH (20:51)
[2018-01-22] MEDS: CEFTAROLINE 300 MG in SODIUM CHLORIDE 0.9% 100 ML IV SCH ×2 (04:10→15:43)
[2018-01-22 05:02] LABS: Basophils % 0.6 % (0.0-0.8); Eosinophils # 0.7 10*3/uL (0.0-0.87); Eosinophils % 9.9 % (0.00-10.9); Hematocrit 28.6 VOL% (35.7-47.0); Immature Granulocytes % 0.7 %; Immature Granulocytes Absolute 0.05 #; Lymphocytes # 0.8 10*3/uL (1.4-4.0); Mean Corpuscular HGB Conc 31.5 GM/DL (32-36); Mean Corpuscular Hemoglobin 27 PG (27-34); Mean Corpuscular Volume 86.4 FL (87-102); Mean Platelet Volume 9.8 FL (9.6-12.0); Monocytes # 0.9 10*3/uL (0.11-0.8); Monocytes % 12.7 % (1.7-12.7); Neutrophils # 4.3 10*3/uL (1.4-7.4); Neutrophils % 64.1 % (38.7-73.9); Platelet Count 293 T/CUMM (130-400); Red Blood Count 3.31 MC/CUMM (3.8-5.5); Red Cell Distribution Width 14.9 % (9.3-17.3); White Blood Count 6.7 T/CUMM (4-12)
[2018-01-22] MEDS: SODIUM BICARB INJ 50 MEQ in SODIUM CHLORIDE 0.45% 1,000 ML IV SCH (05:34)
[2018-01-22 05:35] LABS: Calcium 8.9 MG/DL (8.5-10.1); Potassium 4.9 MMOL/L (3.5-5.1)
[2018-01-22] MEDS: INSULIN REGULAR 100 UNIT/ML SUBCUT SCH ×4 (08:39→22:00)
[2018-01-22] MEDS: CARVEDILOL 25 MG TABLET PO SCH ×2 (08:40→17:22)
[2018-01-22] MEDS: IRON (CARBONYL)/VIT C/B12/FA TABLET PO SCH (08:40)
[2018-01-22] MEDS: PANTOPRAZOLE 40 MG TABLET PO SCH ×2 (08:40→22:00)
[2018-01-22] MEDS: MULTIVITAMIN (CENTRUM) TABLET PO SCH (08:41)
[2018-01-22] MEDS: APIXABAN 5 MG TABLET PO SCH ×2 (08:41→22:01)
[2018-01-22] MEDS: ASPIRIN EC 81 MG TABLET PO SCH (08:41)
[2018-01-22] MEDS: DOXAZOSIN 1 MG TABLET PO SCH ×2 (08:41→21:59)
[2018-01-22] MEDS: POTASSIUM CHLORIDE 20 MEQ PACK PO SCH (08:41)
[2018-01-22] MEDS: amLODIPine 5 MG TABLET PO SCH ×2 (08:41→22:01)
[2018-01-22] MEDS: MUPIROCIN 2% OINT 22 GM TUBE TOP SCH ×3 (09:39→22:00)
[2018-01-22] MEDS ORDERED: FUROSEMIDE 40 MG/4 ML VIAL IV ONE (14:36)
[2018-01-22] MEDS ORDERED: hydrALAZINE 20 MG/1 ML VIAL IV PRN (15:14)
[2018-01-22] MEDS ORDERED: cloNIDine 0.1 MG TABLET PO SCH (21:00)
[2018-01-22] MEDS: cloNIDine 0.1 MG TABLET PO SCH (21:59)
[2018-01-22] MEDS: GABAPENTIN 300 MG CAPSULE PO SCH (22:00)
[2018-01-22] MEDS: INSULIN GLARGINE 100 UNIT/ML SUBCUT SCH (22:00)
[2018-01-23] MEDS: SODIUM BICARB INJ 50 MEQ in SODIUM CHLORIDE 0.45% 1,000 ML IV SCH (01:33)
[2018-01-23] MEDS: CEFTAROLINE 300 MG in SODIUM CHLORIDE 0.9% 100 ML IV SCH ×2 (03:33→16:24)
[2018-01-23] MEDS ORDERED: LACTULOSE 20 GM/30 ML UDCUP PO ONE (04:15)
[2018-01-23 05:16] LABS: Basophils % 0.4 % (0.0-0.8); Eosinophils # 0.7 10*3/uL (0.0-0.87); Eosinophils % 9.6 % (0.00-10.9); Hematocrit 29.6 VOL% (35.7-47.0); Hemoglobin 9.5 GM/DL (12.0-16.0); Immature Granulocytes % 0.7 %; Immature Granulocytes Absolute 0.05 #; Lymphocytes % 13.9 % (21.3-54.2); Mean Corpuscular HGB Conc 32.1 GM/DL (32-36); Mean Corpuscular Hemoglobin 27 PG (27-34); Mean Corpuscular Volume 85.3 FL (87-102); Mean Platelet Volume 9.6 FL (9.6-12.0); Monocytes # 0.9 10*3/uL (0.11-0.8); Monocytes % 11.6 % (1.7-12.7); Neutrophils # 4.7 10*3/uL (1.4-7.4); Neutrophils % 63.8 % (38.7-73.9); Platelet Count 303 T/CUMM (130-400); Red Blood Count 3.47 MC/CUMM (3.8-5.5); Red Cell Distribution Width 14.6 % (9.3-17.3); White Blood Count 7.4 T/CUMM (4-12)
[2018-01-23 05:31] LABS: Potassium 4.9 MMOL/L (3.5-5.1)
[2018-01-23 05:46] LABS: Alanine Aminotransferase 230 U/L (13-56); Albumin 1.8 G/DL (3.4-5.0); Alkaline Phosphatase 121 U/L (45-117); Aspartate Amino Transferase 104 U/L (0-37); Bilirubin,Direct < 0.100 MG/DL (0.0-0.20); Bilirubin,Indirect 0.3 MG/DL (0.0-1.0); Blood Urea Nitrogen 63 MG/DL (7-18); Glucose 91 MG/DL (74-106); Potassium 4.9 MMOL/L (3.5-5.1); Sodium 136 MMOL/L (136-145); Total Protein 6.5 G/DL (6.4-8.3)
[2018-01-23 06:16] LABS: CKMB % 0.3 %
[2018-01-23] MEDS ORDERED: MAGNESIUM HYDROXIDE SUSP 30 ML UDCUP PO PRN (08:51)
[2018-01-23] MEDS: DOXAZOSIN 1 MG TABLET PO SCH ×2 (09:16→21:35)
[2018-01-23] MEDS: INSULIN REGULAR 100 UNIT/ML SUBCUT SCH ×4 (09:16→21:35)
[2018-01-23] MEDS: PANTOPRAZOLE 40 MG TABLET PO SCH ×2 (09:17→21:36)
[2018-01-23] MEDS: MULTIVITAMIN (CENTRUM) TABLET PO SCH (09:17)
[2018-01-23] MEDS: amLODIPine 5 MG TABLET PO SCH (09:17)
[2018-01-23] MEDS: POTASSIUM CHLORIDE 20 MEQ PACK PO SCH (09:17)
[2018-01-23] MEDS: APIXABAN 5 MG TABLET PO SCH ×2 (09:17→21:35)
[2018-01-23] MEDS: ASPIRIN EC 81 MG TABLET PO SCH (09:18)
[2018-01-23] MEDS: MUPIROCIN 2% OINT 22 GM TUBE TOP SCH ×3 (09:18→21:35)
[2018-01-23] MEDS: IRON (CARBONYL)/VIT C/B12/FA TABLET PO SCH (09:18)
[2018-01-23] MEDS: CARVEDILOL 25 MG TABLET PO SCH ×2 (09:18→18:16)
[2018-01-23] MEDS: cloNIDine 0.1 MG TABLET PO SCH ×2 (09:24→21:35)
[2018-01-23 09:34] LABS: ABG Base Excess -3.2 MMOL/L (-2.5-2.5); ABG HCO3 21.6 MMOL/L (20-26); ABG Oxygen Saturation 91.2 % (95-100); ABG PH 7.366 (7.35-7.45); ABG PO2 60.7 MM HG (80-95); Allen Test Positive
[2018-01-23] MEDS ORDERED: FUROSEMIDE 40 MG/4 ML VIAL IV ONE (09:51)
[2018-01-23] MEDS: LINACLOTIDE 145 MCG CAPSULE PO SCH (10:40)
[2018-01-23] MEDS: ONDANSETRON 4 MG/2 ML VIAL IV PRN (10:41)
[2018-01-23 11:22] LABS: Calcium 9.2 MG/DL (8.5-10.1); Osmolality,Calculated 290.1 MOS/KG (273-304); Potassium 4.8 MMOL/L (3.5-5.1)
[2018-01-23] MEDS: ACETAMINOPHEN 325 MG TABLET PO PRN (20:34)
[2018-01-23] MEDS: INSULIN GLARGINE 100 UNIT/ML SUBCUT SCH (21:35)
[2018-01-23] MEDS: GABAPENTIN 300 MG CAPSULE PO SCH (21:36)
[2018-01-23] MEDS: ALBUTEROL/IPRATROPIUM 3 ML NEB RESP TX PRN (21:42)
[2018-01-24 04:49] LABS: ABG Base Excess -2.7 MMOL/L (-2.5-2.5); ABG Oxygen Saturation 84.6 % (95-100); ABG PCO2 37.8 MM HG (35-48); ABG PH 7.383 (7.35-7.45); ABG PO2 52.7 MM HG (80-95); ABG TCO2 23.2 MMOL/L (23-27); Allen Test Positive; Pt O2 Delivery Device Venturi Mask
[2018-01-24] MEDS ORDERED: ALBUTEROL/IPRATROPIUM 3 ML NEB RESP TX ONE (05:05)
[2018-01-24] MEDS: CEFTAROLINE 300 MG in SODIUM CHLORIDE 0.9% 100 ML IV SCH ×2 (05:11→16:47)
[2018-01-24 06:12] LABS: Basophils # 0.1 10*3/uL (0.0-0.2); Basophils % 0.6 % (0.0-0.8); Eosinophils # 0.5 10*3/uL (0.0-0.87); Eosinophils % 6.3 % (0.00-10.9); Hematocrit 31.1 VOL% (35.7-47.0); Hemoglobin 9.6 GM/DL (12.0-16.0); Immature Granulocytes % 0.9 %; Immature Granulocytes Absolute 0.07 #; Lymphocytes # 0.9 10*3/uL (1.4-4.0); Lymphocytes % 10.9 % (21.3-54.2); Mean Corpuscular HGB Conc 30.9 GM/DL (32-36); Mean Corpuscular Hemoglobin 27 PG (27-34); Mean Corpuscular Volume 86.9 FL (87-102); Mean Platelet Volume 10.3 FL (9.6-12.0); Monocytes # 1.1 10*3/uL (0.11-0.8); Monocytes % 13.2 % (1.7-12.7); Neutrophils # 5.6 10*3/uL (1.4-7.4); Neutrophils % 68.1 % (38.7-73.9); Platelet Count 298 T/CUMM (130-400); Red Blood Count 3.58 MC/CUMM (3.8-5.5); Red Cell Distribution Width 14.5 % (9.3-17.3); White Blood Count 8.2 T/CUMM (4-12)
[2018-01-24 06:30] LABS: Blood Urea Nitrogen 54 MG/DL (7-18); Calcium 8.8 MG/DL (8.5-10.1); Glucose 143 MG/DL (74-106); Osmolality,Calculated 286.1 MOS/KG (273-304); Potassium 4.9 MMOL/L (3.5-5.1); Sodium 135 MMOL/L (136-145)
[2018-01-24 06:32] LABS: Troponin I 0.168 NG/ML (0.00-0.045)
[2018-01-24] MEDS: INSULIN REGULAR 100 UNIT/ML SUBCUT SCH ×4 (08:31→20:55)
[2018-01-24] MEDS: ASPIRIN EC 81 MG TABLET PO SCH (08:40)
[2018-01-24] MEDS: IRON (CARBONYL)/VIT C/B12/FA TABLET PO SCH (08:40)
[2018-01-24] MEDS: MUPIROCIN 2% OINT 22 GM TUBE TOP SCH ×3 (08:40→21:06)
[2018-01-24] MEDS: CARVEDILOL 25 MG TABLET PO SCH ×2 (08:40→16:30)
[2018-01-24] MEDS: MULTIVITAMIN (CENTRUM) TABLET PO SCH (08:40)
[2018-01-24] MEDS: PANTOPRAZOLE 40 MG TABLET PO SCH ×2 (08:40→20:54)
[2018-01-24] MEDS: POTASSIUM CHLORIDE 20 MEQ PACK PO SCH (08:40)
[2018-01-24] MEDS: APIXABAN 5 MG TABLET PO SCH ×2 (08:40→20:54)
[2018-01-24] MEDS: DOXAZOSIN 1 MG TABLET PO SCH ×2 (09:00→22:25)
[2018-01-24] MEDS: cloNIDine 0.1 MG TABLET PO SCH ×2 (09:00→22:25)
[2018-01-24] MEDS: LINACLOTIDE 145 MCG CAPSULE PO SCH (09:15)
[2018-01-24] MEDS ORDERED: HEPARIN 10,000 UNIT/10 ML VIAL IV SCH (12:00)
[2018-01-24 13:02] LABS: DRVVT Confirmation 0.7 ratio (0.0 - 1.1); DRVVT Mix Ratio (Mayo Reflex) 1.2 ratio (0.0 - 1.1); Fibrinogen, P 602 mg/dL (200 - 430); Reptilase Time, P 25 sec (14 - 23); Thrombin Time (Bovine), P 26 sec (15 - 23)
[2018-01-24] MEDS: ACETAMINOPHEN 325 MG TABLET PO PRN (13:49)
[2018-01-24] MEDS ORDERED: METOPROLOL TARTRATE 5 MG/5 ML VIAL IV ONE (13:51)
[2018-01-24] MEDS: METOPROLOL TARTRATE 5 MG/5 ML VIAL IV SCH ×2 (14:07→14:09)
[2018-01-24] MEDS ORDERED: DILTIAZEM 100 MG VIAL.ADD IV ONE (14:24)
[2018-01-24] MEDS ORDERED: DILTIAZEM 25 MG/5 ML VIAL IV ONE (14:24)
[2018-01-24] MEDS ORDERED: SODIUM CHLORIDE 0.9% 100 ML IV ONE (14:26)
[2018-01-24] MEDS ORDERED: DILTIAZEM 50 MG/10 ML VIAL IV ONE (14:30)
[2018-01-24] MEDS: DILTIAZEM INJ 100 MG in SODIUM CHLORIDE 0.9% 100 ML IV SCH ×2 (14:45→20:56)
[2018-01-24] MEDS: ONDANSETRON 4 MG/2 ML VIAL IV PRN (17:15)
[2018-01-24] MEDS: ALBUTEROL/IPRATROPIUM 3 ML NEB RESP TX PRN ×2 (18:10→22:05)
[2018-01-24] MEDS: PIPERACILLIN/TAZOBACTAM 3,375 MG in SODIUM CHLORIDE 0.9% 100 ML IV SCH (18:49)
[2018-01-24 20:30] LABS: Apearance,Urine CLOUDY (Clear); Bilirubin,Urine Negative (Negative); Blood, Urine Large mg/dL (Negative); Glucose,Urine (UA) Negative (Negative); Hyaline Casts,Urine 2 /LPF (0-3); Ketones,Urine 5 mg/dL (Negative); Mucus,Urine Occasional /LPF (Occasional); Nitrite,Urine Negative (Negative); Protein,Urine 100 MG/DL; RBC,Urine 323 /HPF (0-4); Squamous Epithelial Cell,Urine Occasional /HPF (0-10); Urine Specific Gravity 1.016 (1.001-1.035); Urine Urobilinogen < 2.0 EU/DL (0.2-1.0)
[2018-01-24 20:31] LABS: Urine Color Yellow (Yellow)
[2018-01-24] MEDS: GABAPENTIN 300 MG CAPSULE PO SCH (20:55)
[2018-01-24] MEDS: INSULIN GLARGINE 100 UNIT/ML SUBCUT SCH (20:55)
[2018-01-24] MEDS: LINEZOLID INJ 600 MG in PREMIX 1 EACH IV SCH (21:44)
[2018-01-25] MEDS: ACETAMINOPHEN 325 MG TABLET PO PRN (02:18)
[2018-01-25 03:57] LABS: Basophils # 0.1 10*3/uL (0.0-0.2); Basophils % 0.9 % (0.0-0.8); Eosinophils # 0.4 10*3/uL (0.0-0.87); Eosinophils % 5.3 % (0.00-10.9); Hematocrit 28.5 VOL% (35.7-47.0); Immature Granulocytes % 0.7 %; Immature Granulocytes Absolute 0.05 #; Lymphocytes # 0.9 10*3/uL (1.4-4.0); Lymphocytes % 11.9 % (21.3-54.2); Mean Corpuscular HGB Conc 31.6 GM/DL (32-36); Mean Corpuscular Hemoglobin 27 PG (27-34); Mean Corpuscular Volume 85.6 FL (87-102); Mean Platelet Volume 9.6 FL (9.6-12.0); Monocytes % 13.8 % (1.7-12.7); Neutrophils % 67.4 % (38.7-73.9); Platelet Count 275 T/CUMM (130-400); Red Blood Count 3.33 MC/CUMM (3.8-5.5); Red Cell Distribution Width 14.5 % (9.3-17.3); White Blood Count 7.4 T/CUMM (4-12)
[2018-01-25 04:10] LABS: Calcium 8.8 MG/DL (8.5-10.1); Osmolality,Calculated 284.2 MOS/KG (273-304)
[2018-01-25] MEDS: PIPERACILLIN/TAZOBACTAM 3,375 MG in SODIUM CHLORIDE 0.9% 100 ML IV SCH (05:57)
[2018-01-25 06:20] VITALS: BP 181/87
[2018-01-25] MEDS: LINACLOTIDE 145 MCG CAPSULE PO SCH (08:18)
[2018-01-25] MEDS: INSULIN REGULAR 100 UNIT/ML SUBCUT SCH ×2 (08:18→11:37)
[2018-01-25] MEDS: CARVEDILOL 25 MG TABLET PO SCH (08:18)
[2018-01-25] MEDS ORDERED: APIXABAN 5 MG TABLET PO SCH (09:00)
[2018-01-25] MEDS: cloNIDine 0.1 MG TABLET PO SCH (09:16)
[2018-01-25] MEDS: IRON (CARBONYL)/VIT C/B12/FA TABLET PO SCH (09:16)
[2018-01-25] MEDS: DOXAZOSIN 1 MG TABLET PO SCH (09:16)
[2018-01-25] MEDS: PANTOPRAZOLE 40 MG TABLET PO SCH (09:17)
[2018-01-25] MEDS: MULTIVITAMIN (CENTRUM) TABLET PO SCH (09:17)
[2018-01-25] MEDS: ASPIRIN EC 81 MG TABLET PO SCH (09:17)
[2018-01-25] MEDS: POTASSIUM CHLORIDE 20 MEQ PACK PO SCH (09:18)
[2018-01-25] MEDS: MUPIROCIN 2% OINT 22 GM TUBE TOP SCH (09:18)
[2018-01-25] MEDS: LINEZOLID INJ 600 MG in PREMIX 1 EACH IV SCH (10:14)
[2018-01-25] MEDS: ALBUTEROL/IPRATROPIUM 3 ML NEB RESP TX PRN (11:45)
== END 2018-01-25 14:15 | DRG 291 ==
LOC: N.EDINP 12:11 → N.ED 12:11 → OBSVTOIN 15:02 → SUATTDRO 15:02 → N.2W 15:44 → N.TELEN 17:02 → N.ICU 01-23 13:44
PROVIDERS: ADMIT Internal Medicine; ATTEND Family Medicine

== ENCOUNTER 2018-04-10 16:22 | Inpatient (IN) ==
[2018-04-10] MEDS ORDERED: ACETAMINOPHEN 500 MG TABLET PO STA (17:07)
[2018-04-10] MEDS ORDERED: ALBUTEROL 2.5 MG/3 ML NEB RESP TX STA (17:07)
[2018-04-10] MEDS ORDERED: cloNIDine 0.1 MG TABLET PO STA (17:08)
[2018-04-10] MEDS ORDERED: ACETAMINOPHEN 325 MG TABLET PO PRN (17:23)
[2018-04-10] MEDS ORDERED: ONDANSETRON 4 MG/2 ML VIAL IV PRN (17:23)
[2018-04-10] MEDS ORDERED: GLUCAGON 1 MG VIAL IM PRN (17:23)
[2018-04-10 17:43] LABS: Basophils # 0.1 10*3/uL (0.0-0.2); Basophils % 0.9 % (0.0-0.8); Eosinophils % 0.6 % (0.00-10.9); Hematocrit 27.5 VOL% (35.7-47.0); Hemoglobin 8.7 GM/DL (12.0-16.0); Immature Granulocytes % 0.9 %; Immature Granulocytes Absolute 0.06 #; Lymphocytes # 0.9 10*3/uL (1.4-4.0); Lymphocytes % 12.4 % (21.3-54.2); Mean Corpuscular HGB Conc 31.6 GM/DL (32-36); Mean Corpuscular Hemoglobin 27 PG (27-34); Mean Corpuscular Volume 86.2 FL (87-102); Mean Platelet Volume 9.8 FL (9.6-12.0); Monocytes # 0.5 10*3/uL (0.11-0.8); Monocytes % 7.2 % (1.7-12.7); Neutrophils # 5.3 10*3/uL (1.4-7.4); Platelet Count 223 T/CUMM (130-400); Red Blood Count 3.19 MC/CUMM (3.8-5.5); Red Cell Distribution Width 15.8 % (9.3-17.3); White Blood Count 6.8 T/CUMM (4-12)
[2018-04-10 17:51] LABS: ABG Base Excess 3.8 MMOL/L (-2.5-2.5); ABG HCO3 27.5 MMOL/L (20-26); ABG Oxygen Saturation 76.2 % (95-100); ABG PCO2 37.6 MM HG (35-48); ABG PH 7.472 (7.35-7.45); ABG TCO2 25.4 MMOL/L (23-27)
[2018-04-10 17:55] LABS: ABG PO2 40.1 MM HG (80-95)
[2018-04-10 18:10] LABS: Albumin 2.9 G/DL (3.4-5.0); Bilirubin,Total 0.6 MG/DL (0.2-1.0); Calcium 9.7 MG/DL (8.5-10.1); Osmolality,Calculated 298.4 MOS/KG (273-304); Potassium 3.3 MMOL/L (3.5-5.1); Total Protein 7.1 G/DL (6.4-8.3)
[2018-04-10] MEDS ORDERED: FUROSEMIDE 40 MG/4 ML VIAL IV STA (18:33)
[2018-04-10 18:55] LABS: Apearance,Urine Slightly Hazy (Clear); Bacteria,Urine Occasional /HPF (Few); Bilirubin,Urine Negative (Negative); Blood, Urine Negative (Negative); Glucose,Urine (UA) 150 mg/dL (Negative); Ketones,Urine Negative (Negative); Nitrite,Urine Negative (Negative); Protein,Urine >=500 MG/DL; RBC,Urine 9 /HPF (0-4); Squamous Epithelial Cell,Urine Occasional /HPF (0-10); Urine Color Yellow (Yellow); Urine Specific Gravity 1.014 (1.001-1.035); Urine Urobilinogen < 2.0 EU/DL (0.2-1.0); WBC,Urine 14 /HPF (0-6)
[2018-04-10] MEDS ORDERED: cloNIDine 0.1 MG TABLET PO PRN (20:20)
[2018-04-10] MEDS ORDERED: SIMETHICONE CHEW 125 MG TABLET PO PRN (20:20)
[2018-04-10] MEDS ORDERED: LACTULOSE 20 GM/30 ML UDCUP PO PRN (20:20)
[2018-04-10] MEDS ORDERED: MAGNESIUM HYDROXIDE SUSP 30 ML UDCUP PO PRN (20:20)
[2018-04-10] MEDS ORDERED: CLINDAMYCIN INJ 600 MG in PREMIX 1 EACH IV SCH (20:30)
[2018-04-10] MEDS ORDERED: MAGNESIUM SULF RIDER 2 GM in PREMIX 1 EACH IV PRN (20:32)
[2018-04-10] MEDS ORDERED: MAGNESIUM SULF RIDER 4 GM in PREMIX 1 EACH IV PRN (20:32)
[2018-04-10] MEDS: POTASSIUM CHLORIDE 20 MEQ TABLET PO PRN (23:22)
[2018-04-10] MEDS: GABAPENTIN 300 MG CAPSULE PO SCH (23:22)
[2018-04-10] MEDS: PANTOPRAZOLE 40 MG TABLET PO SCH (23:22)
[2018-04-10] MEDS: DOCUSATE SODIUM 100 MG CAPSULE PO SCH (23:22)
[2018-04-10] MEDS: AMIODARONE 200 MG TABLET PO SCH (23:22)
[2018-04-10] MEDS: TERAZOSIN 2 MG CAPSULE PO SCH (23:22)
[2018-04-10] MEDS: HYDROCORTISONE 2.5% RECTAL CREAM 30 GM TUBE TOP SCH (23:23)
[2018-04-10] MEDS: HYDROCORTISONE 25 MG SUPP RECTAL SCH (23:23)
[2018-04-10] MEDS: PIPERACILLIN/TAZOBACTAM 3,375 MG in SODIUM CHLORIDE 0.9% 100 ML IV SCH (23:24)
[2018-04-10] MEDS: INSULIN REGULAR 100 UNIT/ML SUBCUT SCH (23:34)
[2018-04-11] MEDS ORDERED: LEVOFLOXACIN INJ 750 MG in PREMIX 1 EACH IV ONE (01:00)
[2018-04-11] MEDS: HYDROCORTISONE 2.5% RECTAL CREAM 30 GM TUBE TOP SCH ×3 (02:24→20:54)
[2018-04-11] MEDS: HYDROCORTISONE 25 MG SUPP RECTAL SCH ×3 (02:24→20:55)
[2018-04-11] MEDS: POTASSIUM CHLORIDE 20 MEQ TABLET PO PRN ×2 (04:08→06:10)
[2018-04-11 06:47] LABS: Basophils % 0.9 % (0.0-0.8); Eosinophils # 0.4 10*3/uL (0.0-0.87); Eosinophils % 7.7 % (0.00-10.9); Hematocrit 26.2 VOL% (35.7-47.0); Hemoglobin 8.1 GM/DL (12.0-16.0); Immature Granulocytes % 0.4 %; Immature Granulocytes Absolute 0.02 #; Lymphocytes # 1.1 10*3/uL (1.4-4.0); Lymphocytes % 24.2 % (21.3-54.2); Mean Corpuscular HGB Conc 30.9 GM/DL (32-36); Mean Corpuscular Hemoglobin 27 PG (27-34); Mean Corpuscular Volume 87.3 FL (87-102); Mean Platelet Volume 10.1 FL (9.6-12.0); Monocytes # 0.6 10*3/uL (0.11-0.8); Monocytes % 13.3 % (1.7-12.7); Neutrophils # 2.5 10*3/uL (1.4-7.4); Neutrophils % 53.5 % (38.7-73.9); Platelet Count 202 T/CUMM (130-400); Red Cell Distribution Width 15.9 % (9.3-17.3); White Blood Count 4.7 T/CUMM (4-12)
[2018-04-11 06:54] LABS: Calcium 9.4 MG/DL (8.5-10.1); Osmolality,Calculated 289.4 MOS/KG (273-304); Potassium 3.6 MMOL/L (3.5-5.1)
[2018-04-11] MEDS ORDERED: INFLUENZA VIRUS VACCINE 0.5 ML SYRINGE IM ONE (07:03)
[2018-04-11] MEDS ORDERED: FUROSEMIDE 80 MG TABLET PO SCH (08:00)
[2018-04-11] MEDS: ALBUTEROL/IPRATROPIUM 3 ML NEB RESP TX SCH ×4 (08:26→19:45)
[2018-04-11] MEDS: INSULIN REGULAR 100 UNIT/ML SUBCUT SCH ×4 (08:48→21:37)
[2018-04-11] MEDS ORDERED: NON-FORMULARY MEDICATION (Multivitamin [Multivitamins] 1 EACH) PO SCH (09:00)
[2018-04-11] MEDS ORDERED: PANTOPRAZOLE 40 MG TABLET PO SCH (09:00)
[2018-04-11] MEDS: AMIODARONE 200 MG TABLET PO SCH ×2 (10:20→20:54)
[2018-04-11] MEDS: DILTIAZEM CD 120 MG CAPSULE PO SCH (10:20)
[2018-04-11] MEDS: POLYETHYLENE GLYCOL POWDER 17 GM PACK PO SCH (10:20)
[2018-04-11] MEDS: TERAZOSIN 2 MG CAPSULE PO SCH ×2 (10:21→20:54)
[2018-04-11] MEDS: METOPROLOL TARTRATE 50 MG TABLET PO SCH (10:21)
[2018-04-11] MEDS: MULTIVITAMIN (CENTRUM) TABLET PO SCH (10:21)
[2018-04-11] MEDS: IRON (CARBONYL)/VIT C/B12/FA TABLET PO SCH (10:21)
[2018-04-11] MEDS: DOCUSATE SODIUM 100 MG CAPSULE PO SCH ×2 (10:22→20:54)
[2018-04-11] MEDS: metOLazone 2.5 MG TABLET PO SCH ×2 (10:22→17:11)
[2018-04-11] MEDS: INSULIN GLARGINE 100 UNIT/ML SUBCUT SCH (10:22)
[2018-04-11] MEDS: PIPERACILLIN/TAZOBACTAM 3,375 MG in SODIUM CHLORIDE 0.9% 100 ML IV SCH ×2 (10:22→22:49)
[2018-04-11] MEDS: PANTOPRAZOLE 40 MG TABLET PO SCH ×2 (10:22→20:54)
[2018-04-11] MEDS: ENOXAPARIN 30 MG/0.3 ML SYRINGE SUBCUT SCH (14:31)
[2018-04-11] MEDS: FUROSEMIDE 40 MG/4 ML VIAL IV SCH (17:11)
[2018-04-11] MEDS: GABAPENTIN 300 MG CAPSULE PO SCH (20:54)
[2018-04-12] MEDS: ALBUTEROL/IPRATROPIUM 3 ML NEB RESP TX SCH ×4 (00:11→19:13)
[2018-04-12] MEDS: INSULIN REGULAR 100 UNIT/ML SUBCUT SCH ×4 (08:04→21:05)
[2018-04-12 09:21] LABS: Basophils # 0.1 10*3/uL (0.0-0.2); Eosinophils # 0.6 10*3/uL (0.0-0.87); Eosinophils % 11.2 % (0.00-10.9); Hematocrit 25.6 VOL% (35.7-47.0); Immature Granulocytes % 0.5 %; Immature Granulocytes Absolute 0.03 #; Lymphocytes # 1.2 10*3/uL (1.4-4.0); Lymphocytes % 21.5 % (21.3-54.2); Mean Corpuscular HGB Conc 31.3 GM/DL (32-36); Mean Corpuscular Hemoglobin 27 PG (27-34); Mean Corpuscular Volume 87.4 FL (87-102); Mean Platelet Volume 9.4 FL (9.6-12.0); Monocytes # 0.7 10*3/uL (0.11-0.8); Monocytes % 11.5 % (1.7-12.7); Neutrophils # 3.1 10*3/uL (1.4-7.4); Neutrophils % 54.3 % (38.7-73.9); Platelet Count 175 T/CUMM (130-400); Red Blood Count 2.93 MC/CUMM (3.8-5.5); Red Cell Distribution Width 15.8 % (9.3-17.3); White Blood Count 5.7 T/CUMM (4-12)
[2018-04-12 09:43] LABS: Eosinophils 13 % (0-10); Hypochromasia 1+; Lymphocytes 20 % (20-55); Platelet Estimate Adequate; Segmented Neutrophils 53 % (50-85); Total Cells Counted 100
[2018-04-12 09:48] LABS: Calcium 9.5 MG/DL (8.5-10.1); Osmolality,Calculated 291.5 MOS/KG (273-304); Potassium 3.3 MMOL/L (3.5-5.1)
[2018-04-12] MEDS: FUROSEMIDE 40 MG/4 ML VIAL IV SCH ×2 (10:14→15:16)
[2018-04-12] MEDS: MULTIVITAMIN (CENTRUM) TABLET PO SCH (10:20)
[2018-04-12] MEDS: TERAZOSIN 2 MG CAPSULE PO SCH ×2 (10:20→20:44)
[2018-04-12] MEDS: BENZONATATE 100 MG CAPSULE PO SCH ×3 (10:20→20:42)
[2018-04-12] MEDS: INSULIN GLARGINE 100 UNIT/ML SUBCUT SCH (10:20)
[2018-04-12] MEDS: metOLazone 2.5 MG TABLET PO SCH ×2 (10:21→15:09)
[2018-04-12] MEDS: DOCUSATE SODIUM 100 MG CAPSULE PO SCH ×2 (10:21→20:43)
[2018-04-12] MEDS: DILTIAZEM CD 120 MG CAPSULE PO SCH (10:21)
[2018-04-12] MEDS: IRON (CARBONYL)/VIT C/B12/FA TABLET PO SCH (10:21)
[2018-04-12] MEDS: PANTOPRAZOLE 40 MG TABLET PO SCH ×2 (10:22→20:43)
[2018-04-12] MEDS: METOPROLOL TARTRATE 50 MG TABLET PO SCH (10:22)
[2018-04-12] MEDS: HYDROCORTISONE 2.5% RECTAL CREAM 30 GM TUBE TOP SCH ×2 (10:23→20:43)
[2018-04-12] MEDS: AMIODARONE 200 MG TABLET PO SCH ×2 (10:23→20:42)
[2018-04-12] MEDS: HYDROCORTISONE 25 MG SUPP RECTAL SCH ×2 (10:23→20:43)
[2018-04-12] MEDS: PIPERACILLIN/TAZOBACTAM 3,375 MG in SODIUM CHLORIDE 0.9% 100 ML IV SCH ×2 (10:29→20:48)
[2018-04-12] MEDS: POLYETHYLENE GLYCOL POWDER 17 GM PACK PO SCH (11:53)
[2018-04-12] MEDS: ENOXAPARIN 30 MG/0.3 ML SYRINGE SUBCUT SCH (11:54)
[2018-04-12] MEDS: GABAPENTIN 300 MG CAPSULE PO SCH (20:44)
[2018-04-13] MEDS: ALBUTEROL/IPRATROPIUM 3 ML NEB RESP TX SCH ×5 (00:11→23:59)
[2018-04-13] MEDS: LEVOFLOXACIN INJ 500 MG in PREMIX 1 EACH IV SCH (00:51)
[2018-04-13] MEDS: ALBUTEROL 2.5 MG/3 ML NEB RESP TX PRN ×2 (04:05→11:02)
[2018-04-13 06:11] LABS: Basophils % 0.7 % (0.0-0.8); Eosinophils # 0.3 10*3/uL (0.0-0.87); Eosinophils % 5.5 % (0.00-10.9); Hematocrit 26.6 VOL% (35.7-47.0); Hemoglobin 8.2 GM/DL (12.0-16.0); Immature Granulocytes % 0.7 %; Immature Granulocytes Absolute 0.04 #; Lymphocytes # 0.9 10*3/uL (1.4-4.0); Lymphocytes % 15.1 % (21.3-54.2); Mean Corpuscular HGB Conc 30.8 GM/DL (32-36); Mean Corpuscular Hemoglobin 27 PG (27-34); Mean Corpuscular Volume 86.9 FL (87-102); Mean Platelet Volume 10.1 FL (9.6-12.0); Monocytes # 0.6 10*3/uL (0.11-0.8); Monocytes % 9.9 % (1.7-12.7); Neutrophils # 4.1 10*3/uL (1.4-7.4); Neutrophils % 68.1 % (38.7-73.9); Platelet Count 182 T/CUMM (130-400); Red Blood Count 3.06 MC/CUMM (3.8-5.5); Red Cell Distribution Width 15.5 % (9.3-17.3)
[2018-04-13 06:36] LABS: Calcium 9.2 MG/DL (8.5-10.1); Osmolality,Calculated 287.8 MOS/KG (273-304); Potassium 3.4 MMOL/L (3.5-5.1)
[2018-04-13] MEDS: FUROSEMIDE 40 MG/4 ML VIAL IV SCH ×2 (08:58→17:17)
[2018-04-13] MEDS: PIPERACILLIN/TAZOBACTAM 3,375 MG in SODIUM CHLORIDE 0.9% 100 ML IV SCH ×2 (08:58→20:15)
[2018-04-13] MEDS: INSULIN GLARGINE 100 UNIT/ML SUBCUT SCH (08:59)
[2018-04-13] MEDS: INSULIN REGULAR 100 UNIT/ML SUBCUT SCH ×4 (08:59→20:55)
[2018-04-13] MEDS: MULTIVITAMIN (CENTRUM) TABLET PO SCH (09:00)
[2018-04-13] MEDS: TERAZOSIN 2 MG CAPSULE PO SCH ×2 (09:00→20:11)
[2018-04-13] MEDS: DOCUSATE SODIUM 100 MG CAPSULE PO SCH ×2 (09:00→20:11)
[2018-04-13] MEDS: metOLazone 2.5 MG TABLET PO SCH ×2 (09:00→17:15)
[2018-04-13] MEDS: PANTOPRAZOLE 40 MG TABLET PO SCH ×2 (09:01→20:11)
[2018-04-13] MEDS: BENZONATATE 100 MG CAPSULE PO SCH ×3 (09:01→20:11)
[2018-04-13] MEDS: DILTIAZEM CD 120 MG CAPSULE PO SCH (09:01)
[2018-04-13] MEDS: METOPROLOL TARTRATE 50 MG TABLET PO SCH (09:01)
[2018-04-13] MEDS: AMIODARONE 200 MG TABLET PO SCH ×2 (09:01→20:12)
[2018-04-13] MEDS: IRON (CARBONYL)/VIT C/B12/FA TABLET PO SCH (09:01)
[2018-04-13] MEDS: POTASSIUM CHLORIDE 20 MEQ TABLET PO PRN ×3 (09:01→17:46)
[2018-04-13] MEDS: POLYETHYLENE GLYCOL POWDER 17 GM PACK PO SCH (09:01)
[2018-04-13] MEDS: HYDROCORTISONE 2.5% RECTAL CREAM 30 GM TUBE TOP SCH ×2 (10:09→20:13)
[2018-04-13] MEDS: HYDROCORTISONE 25 MG SUPP RECTAL SCH ×2 (10:09→20:12)
[2018-04-13] MEDS: ENOXAPARIN 30 MG/0.3 ML SYRINGE SUBCUT SCH (12:50)
[2018-04-13] MEDS: HYDROcodone/CHLORPHENIRAMINE ER 5 ML UDCUP PO SCH ×2 (13:19→20:11)
[2018-04-13 14:20] LABS: Apearance,Urine Slightly Hazy (Clear); Glucose,Urine (UA) Negative (Negative); Protein,Urine >=500 MG/DL; Urine Color Yellow (Yellow); Urine Specific Gravity 1.015 (1.001-1.035)
[2018-04-13 14:21] LABS: Bilirubin,Urine Negative (Negative); Blood, Urine Negative (Negative); Ketones,Urine Negative (Negative); Nitrite,Urine Negative (Negative)
[2018-04-13 14:22] LABS: Urine Urobilinogen 0.2 EU/DL (0.2-1.0)
[2018-04-13 14:54] LABS: Bacteria,Urine Few /HPF (Few)
[2018-04-13] MEDS: GABAPENTIN 300 MG CAPSULE PO SCH (20:12)
[2018-04-14] MEDS: ALBUTEROL/IPRATROPIUM 3 ML NEB RESP TX SCH ×6 (03:12→23:15)
[2018-04-14 05:29] LABS: Basophils # 0.1 10*3/uL (0.0-0.2); Eosinophils # 0.3 10*3/uL (0.0-0.87); Eosinophils % 4.4 % (0.00-10.9); Hematocrit 26.8 VOL% (35.7-47.0); Hemoglobin 8.1 GM/DL (12.0-16.0); Immature Granulocytes % 0.3 %; Immature Granulocytes Absolute 0.02 #; Lymphocytes # 1.7 10*3/uL (1.4-4.0); Lymphocytes % 27.9 % (21.3-54.2); Mean Corpuscular HGB Conc 30.2 GM/DL (32-36); Mean Corpuscular Hemoglobin 27 PG (27-34); Mean Corpuscular Volume 87.9 FL (87-102); Mean Platelet Volume 9.9 FL (9.6-12.0); Monocytes # 0.9 10*3/uL (0.11-0.8); Monocytes % 14.9 % (1.7-12.7); Neutrophils # 3.1 10*3/uL (1.4-7.4); Neutrophils % 51.5 % (38.7-73.9); Platelet Count 177 T/CUMM (130-400); Red Blood Count 3.05 MC/CUMM (3.8-5.5); Red Cell Distribution Width 15.8 % (9.3-17.3); White Blood Count 6.1 T/CUMM (4-12)
[2018-04-14 05:58] LABS: Calcium 9.4 MG/DL (8.5-10.1); Osmolality,Calculated 292.4 MOS/KG (273-304); Potassium 3.6 MMOL/L (3.5-5.1)
[2018-04-14] MEDS: INSULIN REGULAR 100 UNIT/ML SUBCUT SCH ×4 (07:59→22:47)
[2018-04-14] MEDS: HYDROCORTISONE 2.5% RECTAL CREAM 30 GM TUBE TOP SCH ×2 (08:32→20:41)
[2018-04-14] MEDS: PIPERACILLIN/TAZOBACTAM 3,375 MG in SODIUM CHLORIDE 0.9% 100 ML IV SCH ×2 (08:33→20:34)
[2018-04-14] MEDS: HYDROcodone/CHLORPHENIRAMINE ER 5 ML UDCUP PO SCH ×2 (08:33→20:45)
[2018-04-14] MEDS: FUROSEMIDE 40 MG/4 ML VIAL IV SCH (08:34)
[2018-04-14] MEDS: INSULIN GLARGINE 100 UNIT/ML SUBCUT SCH (08:34)
[2018-04-14] MEDS: POLYETHYLENE GLYCOL POWDER 17 GM PACK PO SCH (08:35)
[2018-04-14] MEDS: HYDROCORTISONE 25 MG SUPP RECTAL SCH ×2 (08:36→20:38)
[2018-04-14] MEDS: TERAZOSIN 2 MG CAPSULE PO SCH ×2 (08:36→20:37)
[2018-04-14] MEDS: DILTIAZEM CD 120 MG CAPSULE PO SCH (08:36)
[2018-04-14] MEDS: IRON (CARBONYL)/VIT C/B12/FA TABLET PO SCH (08:37)
[2018-04-14] MEDS: MULTIVITAMIN (CENTRUM) TABLET PO SCH (08:37)
[2018-04-14] MEDS: BENZONATATE 100 MG CAPSULE PO SCH ×3 (08:37→20:39)
[2018-04-14] MEDS: DOCUSATE SODIUM 100 MG CAPSULE PO SCH ×2 (08:37→20:39)
[2018-04-14] MEDS: METOPROLOL TARTRATE 50 MG TABLET PO SCH (08:37)
[2018-04-14] MEDS: metOLazone 2.5 MG TABLET PO SCH ×2 (08:38→15:12)
[2018-04-14] MEDS: AMIODARONE 200 MG TABLET PO SCH ×2 (08:38→20:40)
[2018-04-14] MEDS: PANTOPRAZOLE 40 MG TABLET PO SCH ×2 (08:38→20:38)
[2018-04-14] MEDS ORDERED: FUROSEMIDE 40 MG/4 ML VIAL IV SCH (09:04)
[2018-04-14] MEDS: ENOXAPARIN 30 MG/0.3 ML SYRINGE SUBCUT SCH (12:11)
[2018-04-14] MEDS: diphenhydrAMINE CAP 25 MG CAPSULE PO PRN ×2 (16:17→21:20)
[2018-04-14] MEDS: POTASSIUM CHLORIDE 20 MEQ TABLET PO PRN (20:38)
[2018-04-14] MEDS: GABAPENTIN 300 MG CAPSULE PO SCH (20:45)
[2018-04-15] MEDS: LEVOFLOXACIN INJ 500 MG in PREMIX 1 EACH IV SCH (01:07)
[2018-04-15] MEDS: ALBUTEROL/IPRATROPIUM 3 ML NEB RESP TX SCH ×6 (03:00→23:30)
[2018-04-15 05:43] LABS: Hematocrit 25.2 VOL% (35.7-47.0); Hemoglobin 7.6 GM/DL (12.0-16.0); Mean Corpuscular HGB Conc 30.2 GM/DL (32-36); Mean Corpuscular Hemoglobin 27 PG (27-34); Mean Corpuscular Volume 88.7 FL (87-102); Mean Platelet Volume 11.1 FL (9.6-12.0); Platelet Count 138 T/CUMM (130-400); Red Blood Count 2.84 MC/CUMM (3.8-5.5); Red Cell Distribution Width 15.8 % (9.3-17.3); White Blood Count 6.7 T/CUMM (4-12)
[2018-04-15 05:44] LABS: Basophils % 0.6 % (0.0-0.8); Eosinophils # 0.8 10*3/uL (0.0-0.87); Eosinophils % 11.9 % (0.00-10.9); Immature Granulocytes % 0.4 %; Immature Granulocytes Absolute 0.03 #; Lymphocytes # 1.8 10*3/uL (1.4-4.0); Lymphocytes % 26.7 % (21.3-54.2); Monocytes # 0.8 10*3/uL (0.11-0.8); Neutrophils # 3.3 10*3/uL (1.4-7.4); Neutrophils % 48.4 % (38.7-73.9)
[2018-04-15 05:54] LABS: Calcium 9.1 MG/DL (8.5-10.1); Osmolality,Calculated 294.3 MOS/KG (273-304); Potassium 4.2 MMOL/L (3.5-5.1)
[2018-04-15 06:15] LABS: Eosinophils 15 % (0-10); Hypochromasia 1+; Lymphocytes 24 % (20-55); Platelet Estimate Decreased; Polychromasia Few; Segmented Neutrophils 54 % (50-85); Total Cells Counted 100
[2018-04-15] MEDS ORDERED: EPOETIN ALFA 10,000 UNIT/1 ML VIAL SUBCUT ONE (07:24)
[2018-04-15] MEDS: diphenhydrAMINE CAP 25 MG CAPSULE PO PRN ×2 (07:43→20:43)
[2018-04-15] MEDS: INSULIN REGULAR 100 UNIT/ML SUBCUT SCH ×4 (08:57→21:19)
[2018-04-15] MEDS: HYDROcodone/CHLORPHENIRAMINE ER 5 ML UDCUP PO SCH ×2 (09:34→20:43)
[2018-04-15] MEDS: INSULIN GLARGINE 100 UNIT/ML SUBCUT SCH (09:34)
[2018-04-15] MEDS: POLYETHYLENE GLYCOL POWDER 17 GM PACK PO SCH (09:34)
[2018-04-15] MEDS: PIPERACILLIN/TAZOBACTAM 3,375 MG in SODIUM CHLORIDE 0.9% 100 ML IV SCH ×2 (09:34→20:47)
[2018-04-15] MEDS: BENZONATATE 100 MG CAPSULE PO SCH ×3 (09:35→20:43)
[2018-04-15] MEDS: TERAZOSIN 2 MG CAPSULE PO SCH (09:35)
[2018-04-15] MEDS: METOPROLOL TARTRATE 50 MG TABLET PO SCH (09:35)
[2018-04-15] MEDS: metOLazone 2.5 MG TABLET PO SCH ×2 (09:35→15:55)
[2018-04-15] MEDS: HYDROCORTISONE 25 MG SUPP RECTAL SCH ×2 (09:36→21:18)
[2018-04-15] MEDS: FUROSEMIDE 80 MG TABLET PO SCH ×2 (09:36→15:54)
[2018-04-15] MEDS: DILTIAZEM CD 120 MG CAPSULE PO SCH (09:36)
[2018-04-15] MEDS: AMIODARONE 200 MG TABLET PO SCH ×2 (09:36→20:43)
[2018-04-15] MEDS: MULTIVITAMIN (CENTRUM) TABLET PO SCH (09:36)
[2018-04-15] MEDS: IRON (CARBONYL)/VIT C/B12/FA TABLET PO SCH (09:36)
[2018-04-15] MEDS: DOCUSATE SODIUM 100 MG CAPSULE PO SCH ×2 (09:36→20:43)
[2018-04-15] MEDS: PANTOPRAZOLE 40 MG TABLET PO SCH ×2 (09:36→20:43)
[2018-04-15] MEDS: HYDROCORTISONE 2.5% RECTAL CREAM 30 GM TUBE TOP SCH ×2 (09:37→21:18)
[2018-04-15] MEDS: HEPARIN 5,000 UNIT/1 ML VIAL SUBCUT SCH ×2 (09:38→20:44)
[2018-04-15] MEDS: GABAPENTIN 300 MG CAPSULE PO SCH (20:43)
[2018-04-15] MEDS: TERAZOSIN 10 MG CAPSULE PO SCH (21:30)
[2018-04-16] MEDS: ALBUTEROL/IPRATROPIUM 3 ML NEB RESP TX SCH ×6 (02:50→23:20)
[2018-04-16] MEDS: diphenhydrAMINE CAP 25 MG CAPSULE PO PRN ×3 (04:06→21:16)
[2018-04-16 05:57] LABS: Basophils % 0.6 % (0.0-0.8); Eosinophils # 1.6 10*3/uL (0.0-0.87); Eosinophils % 22.4 % (0.00-10.9); Hematocrit 24.8 VOL% (35.7-47.0); Hemoglobin 7.3 GM/DL (12.0-16.0); Immature Granulocytes % 0.3 %; Immature Granulocytes Absolute 0.02 #; Lymphocytes # 1.9 10*3/uL (1.4-4.0); Lymphocytes % 26.3 % (21.3-54.2); Mean Corpuscular HGB Conc 29.4 GM/DL (32-36); Mean Corpuscular Hemoglobin 26 PG (27-34); Mean Corpuscular Volume 88.3 FL (87-102); Mean Platelet Volume 10.5 FL (9.6-12.0); Monocytes # 0.7 10*3/uL (0.11-0.8); Monocytes % 9.2 % (1.7-12.7); Neutrophils # 2.9 10*3/uL (1.4-7.4); Neutrophils % 41.2 % (38.7-73.9); Platelet Count 192 T/CUMM (130-400); Red Blood Count 2.81 MC/CUMM (3.8-5.5); Red Cell Distribution Width 15.8 % (9.3-17.3); White Blood Count 7.1 T/CUMM (4-12)
[2018-04-16 06:33] LABS: Calcium 9.6 MG/DL (8.5-10.1); Osmolality,Calculated 296.5 MOS/KG (273-304); Potassium 3.4 MMOL/L (3.5-5.1)
[2018-04-16] MEDS: INSULIN REGULAR 100 UNIT/ML SUBCUT SCH ×4 (07:36→21:17)
[2018-04-16 08:33] LABS: Anisocytosis 1+; Band Neutrophils 2 % (0-10); Eosinophils 16 % (0-10); Hypochromasia 3+; Lymphocytes 27 % (20-55); Microcytosis 1+; Poikilocytosis 2+; Segmented Neutrophils 47 % (50-85); Total Cells Counted 100
[2018-04-16 08:34] LABS: Helmet Cells Slight; Ovalocytes Few; Platelet Estimate Adequate; Polychromasia Slight; Schistocytes Slight; Tear Drop Cells Few
[2018-04-16] MEDS: PIPERACILLIN/TAZOBACTAM 3,375 MG in SODIUM CHLORIDE 0.9% 100 ML IV SCH (09:09)
[2018-04-16] MEDS: metOLazone 2.5 MG TABLET PO SCH (09:11)
[2018-04-16] MEDS: DILTIAZEM CD 120 MG CAPSULE PO SCH (09:12)
[2018-04-16] MEDS: IRON (CARBONYL)/VIT C/B12/FA TABLET PO SCH (09:12)
[2018-04-16] MEDS: METOPROLOL TARTRATE 50 MG TABLET PO SCH (09:13)
[2018-04-16] MEDS: AMIODARONE 200 MG TABLET PO SCH ×2 (09:13→21:16)
[2018-04-16] MEDS: PANTOPRAZOLE 40 MG TABLET PO SCH ×2 (09:13→21:16)
[2018-04-16] MEDS: BENZONATATE 100 MG CAPSULE PO SCH ×3 (09:13→21:16)
[2018-04-16] MEDS: DOCUSATE SODIUM 100 MG CAPSULE PO SCH ×2 (09:13→21:16)
[2018-04-16] MEDS: HYDROCORTISONE 25 MG SUPP RECTAL SCH ×2 (09:13→21:16)
[2018-04-16] MEDS: FUROSEMIDE 80 MG TABLET PO SCH (09:13)
[2018-04-16] MEDS: MULTIVITAMIN (CENTRUM) TABLET PO SCH (09:13)
[2018-04-16] MEDS: HEPARIN 5,000 UNIT/1 ML VIAL SUBCUT SCH ×2 (09:14→21:15)
[2018-04-16] MEDS: HYDROcodone/CHLORPHENIRAMINE ER 5 ML UDCUP PO SCH ×2 (09:14→21:16)
[2018-04-16] MEDS: INSULIN GLARGINE 100 UNIT/ML SUBCUT SCH (09:14)
[2018-04-16] MEDS: HYDROCORTISONE 2.5% RECTAL CREAM 30 GM TUBE TOP SCH ×2 (09:14→21:17)
[2018-04-16] MEDS: POLYETHYLENE GLYCOL POWDER 17 GM PACK PO SCH (09:14)
[2018-04-16] MEDS: TERAZOSIN 10 MG CAPSULE PO SCH ×2 (09:17→21:19)
[2018-04-16] MEDS: POTASSIUM CHLORIDE 20 MEQ TABLET PO SCH (16:40)
[2018-04-16] MEDS: DEXTROSE 50% 25 GM/50 ML VIAL IV PRN (18:33)
[2018-04-16] MEDS: GABAPENTIN 300 MG CAPSULE PO SCH (21:16)
[2018-04-17] MEDS: ALBUTEROL/IPRATROPIUM 3 ML NEB RESP TX SCH ×6 (04:20→23:26)
[2018-04-17 05:34] LABS: Basophils # 0.1 10*3/uL (0.0-0.2); Basophils % 0.7 % (0.0-0.8); Eosinophils # 1.7 10*3/uL (0.0-0.87); Eosinophils % 21.8 % (0.00-10.9); Hematocrit 23.7 VOL% (35.7-47.0); Hemoglobin 7.1 GM/DL (12.0-16.0); Immature Granulocytes % 0.7 %; Immature Granulocytes Absolute 0.05 #; Lymphocytes # 2.1 10*3/uL (1.4-4.0); Mean Corpuscular Hemoglobin 27 PG (27-34); Mean Corpuscular Volume 88.8 FL (87-102); Mean Platelet Volume 10.4 FL (9.6-12.0); Monocytes # 0.7 10*3/uL (0.11-0.8); Monocytes % 8.8 % (1.7-12.7); Neutrophils # 3.1 10*3/uL (1.4-7.4); Platelet Count 209 T/CUMM (130-400); Red Blood Count 2.67 MC/CUMM (3.8-5.5); Red Cell Distribution Width 15.6 % (9.3-17.3); White Blood Count 7.6 T/CUMM (4-12)
[2018-04-17 06:02] LABS: Atypical Lymphocytes Few; Eosinophils 19 % (0-10); Hypochromasia 1+; Lymphocytes 33 % (20-55); Microcytosis 1+; Segmented Neutrophils 39 % (50-85); Total Cells Counted 100
[2018-04-17 06:03] LABS: Platelet Estimate Normal
[2018-04-17 06:08] LABS: Calcium 9.1 MG/DL (8.5-10.1); Osmolality,Calculated 290.7 MOS/KG (273-304)
[2018-04-17] MEDS: INSULIN REGULAR 100 UNIT/ML SUBCUT SCH ×4 (07:57→22:18)
[2018-04-17] MEDS: TERAZOSIN 10 MG CAPSULE PO SCH ×2 (08:29→20:49)
[2018-04-17] MEDS: MULTIVITAMIN (CENTRUM) TABLET PO SCH (08:29)
[2018-04-17] MEDS: HYDROcodone/CHLORPHENIRAMINE ER 5 ML UDCUP PO SCH ×2 (08:29→20:48)
[2018-04-17] MEDS: POLYETHYLENE GLYCOL POWDER 17 GM PACK PO SCH (08:29)
[2018-04-17] MEDS: HYDROCORTISONE 2.5% RECTAL CREAM 30 GM TUBE TOP SCH ×2 (08:29→20:49)
[2018-04-17] MEDS: HYDROCORTISONE 25 MG SUPP RECTAL SCH ×2 (08:29→20:49)
[2018-04-17] MEDS: PANTOPRAZOLE 40 MG TABLET PO SCH ×2 (08:30→20:49)
[2018-04-17] MEDS: DOCUSATE SODIUM 100 MG CAPSULE PO SCH ×2 (08:30→20:49)
[2018-04-17] MEDS: DILTIAZEM CD 120 MG CAPSULE PO SCH (08:30)
[2018-04-17] MEDS: IRON (CARBONYL)/VIT C/B12/FA TABLET PO SCH (08:30)
[2018-04-17] MEDS: AMIODARONE 200 MG TABLET PO SCH ×2 (08:31→20:49)
[2018-04-17] MEDS: METOPROLOL TARTRATE 50 MG TABLET PO SCH (08:32)
[2018-04-17] MEDS: INSULIN GLARGINE 100 UNIT/ML SUBCUT SCH (08:32)
[2018-04-17] MEDS: BENZONATATE 100 MG CAPSULE PO SCH ×3 (08:32→20:49)
[2018-04-17] MEDS: POTASSIUM CHLORIDE 20 MEQ TABLET PO SCH (08:32)
[2018-04-17] MEDS: HEPARIN 5,000 UNIT/1 ML VIAL SUBCUT SCH ×2 (08:33→20:48)
[2018-04-17] MEDS ORDERED: EPOETIN ALFA 10,000 UNIT/1 ML VIAL SUBCUT SCH (09:00)
[2018-04-17] MEDS ORDERED: SODIUM CHLORIDE 0.9% 1,000 ML IV PRN (14:20)
[2018-04-17] MEDS: GABAPENTIN 300 MG CAPSULE PO SCH (20:49)
[2018-04-17] MEDS: DEXTROSE 50% 25 GM/50 ML VIAL IV PRN (21:06)
[2018-04-18] MEDS: ALBUTEROL/IPRATROPIUM 3 ML NEB RESP TX SCH ×3 (02:19→11:05)
[2018-04-18 05:10] LABS: Basophils # 0.1 10*3/uL (0.0-0.2); Basophils % 0.8 % (0.0-0.8); Eosinophils % 12.8 % (0.00-10.9); Hematocrit 29.7 VOL% (35.7-47.0); Hemoglobin 8.9 GM/DL (12.0-16.0); Immature Granulocytes % 1.1 %; Immature Granulocytes Absolute 0.08 #; Lymphocytes # 1.5 10*3/uL (1.4-4.0); Lymphocytes % 20.3 % (21.3-54.2); Mean Corpuscular Hemoglobin 26 PG (27-34); Mean Corpuscular Volume 88.1 FL (87-102); Mean Platelet Volume 10.4 FL (9.6-12.0); Monocytes # 0.6 10*3/uL (0.11-0.8); Monocytes % 7.6 % (1.7-12.7); Neutrophils # 4.3 10*3/uL (1.4-7.4); Neutrophils % 57.4 % (38.7-73.9); Platelet Count 220 T/CUMM (130-400); Red Blood Count 3.37 MC/CUMM (3.8-5.5); Red Cell Distribution Width 15.4 % (9.3-17.3); White Blood Count 7.5 T/CUMM (4-12)
[2018-04-18 05:24] LABS: Calcium 9.6 MG/DL (8.5-10.1); Osmolality,Calculated 289.8 MOS/KG (273-304); Potassium 4.3 MMOL/L (3.5-5.1)
[2018-04-18 05:43] LABS: Eosinophils 21 % (0-10); Hypochromasia 1+; Lymphocytes 19 % (20-55); Ovalocytes Slight; Platelet Estimate Adequate; Segmented Neutrophils 53 % (50-85); Total Cells Counted 100
[2018-04-18 05:44] LABS: Atypical Lymphocytes Few; Microcytosis Slight
[2018-04-18] MEDS: INSULIN REGULAR 100 UNIT/ML SUBCUT SCH ×2 (07:58→12:23)
[2018-04-18] MEDS: POLYETHYLENE GLYCOL POWDER 17 GM PACK PO SCH (09:47)
[2018-04-18] MEDS: HYDROcodone/CHLORPHENIRAMINE ER 5 ML UDCUP PO SCH (09:47)
[2018-04-18] MEDS: BENZONATATE 100 MG CAPSULE PO SCH (09:48)
[2018-04-18] MEDS: HYDROCORTISONE 25 MG SUPP RECTAL SCH (09:48)
[2018-04-18] MEDS: DILTIAZEM CD 120 MG CAPSULE PO SCH ×2 (09:54→10:10)
[2018-04-18] MEDS: DOCUSATE SODIUM 100 MG CAPSULE PO SCH (09:54)
[2018-04-18] MEDS: INSULIN GLARGINE 100 UNIT/ML SUBCUT SCH (09:54)
[2018-04-18] MEDS: PANTOPRAZOLE 40 MG TABLET PO SCH (09:54)
[2018-04-18] MEDS: TERAZOSIN 10 MG CAPSULE PO SCH (09:54)
[2018-04-18] MEDS: METOPROLOL TARTRATE 50 MG TABLET PO SCH (09:55)
[2018-04-18] MEDS: POTASSIUM CHLORIDE 20 MEQ TABLET PO SCH (09:56)
[2018-04-18] MEDS: AMIODARONE 200 MG TABLET PO SCH (09:56)
[2018-04-18] MEDS: HEPARIN 5,000 UNIT/1 ML VIAL SUBCUT SCH (09:56)
[2018-04-18] MEDS: MULTIVITAMIN (CENTRUM) TABLET PO SCH (09:56)
[2018-04-18] MEDS: HYDROCORTISONE 2.5% RECTAL CREAM 30 GM TUBE TOP SCH (09:56)
[2018-04-18] MEDS: IRON (CARBONYL)/VIT C/B12/FA TABLET PO SCH (09:57)
[2018-04-18] MEDS ORDERED: DILTIAZEM CD 180 MG CAPSULE PO SCH (10:30)
[2018-04-18 13:13] VITALS: BP 163/78
== END 2018-04-18 15:21 | disposition home health service (06) | DRG 291 ==
LOC: N.ED 16:22 → SUATTDRO 17:23 → N.5E 20:10
PROVIDERS: ADMIT Hospitalist; ATTEND Internal Medicine Geriatric Medicine

== ENCOUNTER 2019-07-24 11:29 | Observation (INO) ==
[2019-07-24] MEDS ORDERED: DILTIAZEM 25 MG/5 ML VIAL IV ONE (11:59)
[2019-07-24] MEDS ORDERED: dilTIAZem Drip 125 MG/125 ML PREMIX IV SCH (12:00)
[2019-07-24] MEDS ORDERED: DILTIAZEM 50 MG/10 ML VIAL IV STA (12:00)
[2019-07-24 12:06] LABS: Basophils # 0.1 10*3/uL (0.0-0.2); Basophils % 0.8 % (0.0-0.8); Eosinophils # 0.2 10*3/uL (0.0-0.87); Eosinophils % 3.8 % (0.00-10.9); Hematocrit 36.4 VOL% (35.7-47.0); Hemoglobin 11.6 GM/DL (12.0-16.0); Immature Granulocytes % 0.3 %; Immature Granulocytes Absolute 0.02 #; Lymphocytes # 1.8 10*3/uL (1.4-4.0); Lymphocytes % 29.6 % (21.3-54.2); Mean Corpuscular HGB Conc 31.9 GM/DL (32-36); Mean Corpuscular Volume 94.1 FL (87-102); Monocytes % 9.3 % (1.7-12.7); Neutrophils % 56.2 % (38.7-73.9); Platelet Count 209 T/CUMM (130-400); Red Blood Count 3.87 MC/CUMM (3.8-5.5); Red Cell Distribution Width 14.7 % (9.3-17.3)
[2019-07-24 12:21] LABS: Alanine Aminotransferase 17 U/L (13-56); Albumin 3.4 G/DL (3.4-5.0); Alkaline Phosphatase 132 U/L (45-117); Aspartate Amino Transferase 17 U/L (0-37); Bilirubin,Total < 0.39 MG/DL (0.2-1.0); Blood Urea Nitrogen 29 MG/DL (7-18); Calcium 9.1 MG/DL (8.5-10.1); Estimated Glom Filtration Rate 14 ML/MIN; Glucose 204 MG/DL (74-106); Osmolality,Calculated 284.8 MOS/KG (273-304); Total Protein 7.2 G/DL (6.4-8.3)
[2019-07-24] MEDS ORDERED: dilTIAZem Drip 125 MG/125 ML PREMIX IV ONE (12:32)
[2019-07-24] MEDS ORDERED: DOCUSATE SODIUM 100 MG CAPSULE PO PRN (13:13)
[2019-07-24] MEDS ORDERED: LACTULOSE 20 GM/30 ML UDCUP PO PRN (13:13)
[2019-07-24] MEDS ORDERED: DEXTROSE 10% 250 ML BAG IV PRN (13:13)
[2019-07-24] MEDS ORDERED: hydrALAZINE 20 MG/1 ML VIAL IV PRN (13:13)
[2019-07-24] MEDS ORDERED: BISACODYL 5 MG TABLET PO PRN (13:13)
[2019-07-24] MEDS ORDERED: GLUCAGON 1 MG VIAL IM PRN (13:13)
[2019-07-24] MEDS ORDERED: SIMETHICONE CHEW 125 MG TABLET PO PRN (13:13)
[2019-07-24] MEDS ORDERED: ALUMINUM/MAGNES/SIMETH MAX STR 30 ML UDCUP PO PRN (13:13)
[2019-07-24] MEDS ORDERED: MAGNESIUM HYDROXIDE SUSP 30 ML UDCUP PO PRN (13:18)
[2019-07-24 14:06] LABS: Apearance,Urine CLOUDY (Clear); Bacteria,Urine Occasional /HPF (Few); Bilirubin,Urine Negative (Negative); Blood, Urine Negative (Negative); Glucose,Urine (UA) >=500 mg/dL (Negative); Ketones,Urine Negative (Negative); Nitrite,Urine Negative (Negative); Protein,Urine 100 MG/DL; RBC,Urine 1 /HPF (0-4); Squamous Epithelial Cell,Urine Occasional /HPF (0-10); Urine Color Yellow (Yellow); Urine Specific Gravity 1.008 (1.001-1.035); Urine Urobilinogen < 2.0 EU/DL (0.2-1.0); WBC,Urine 11 /HPF (0-6)
[2019-07-24] MEDS ORDERED: ENOXAPARIN 100 MG/ML SYRINGE SUBCUT SCH (15:30)
[2019-07-24] MEDS ORDERED: DILTIAZEM 60 MG TABLET PO SCH (15:30)
[2019-07-24] MEDS ORDERED: INSULIN REGULAR 100 UNIT/ML SUBCUT SCH (16:30)
[2019-07-24] MEDS: DILTIAZEM 60 MG TABLET PO SCH (20:31)
[2019-07-24] MEDS: TERAZOSIN 1 MG CAPSULE PO SCH (20:32)
[2019-07-24] MEDS: ASCORBIC ACID 500 MG TABLET PO SCH (20:34)
[2019-07-24] MEDS: PANTOPRAZOLE 40 MG TABLET PO SCH (20:35)
[2019-07-24] MEDS: carvediloL 25 MG TABLET PO SCH (20:36)
[2019-07-24] MEDS ORDERED: GABAPENTIN 300 MG CAPSULE PO SCH (21:00)
[2019-07-24] MEDS ORDERED: AMIODARONE 200 MG TABLET PO SCH (21:00)
[2019-07-24] MEDS ORDERED: PHENYTOIN ER 100 MG CAPSULE PO SCH (21:00)
[2019-07-25] MEDS ORDERED: cefTRIAXone 1,000 MG in SYRINGE 1 EACH IV SCH (07:00)
[2019-07-25 07:11] LABS: Albumin 2.8 G/DL (3.4-5.0); Bilirubin,Total 0.7 MG/DL (0.2-1.0); Calcium 8.7 MG/DL (8.5-10.1); Risk Ratio 4.07; Thyroid Stimulating Hormone 1.25 uIU/ml (0.358-3.74); Total Protein 6.1 G/DL (6.4-8.3)
[2019-07-25 08:34] VITALS: BP 128/67
[2019-07-25] MEDS ORDERED: DILTIAZEM 60 MG TABLET PO SCH (09:00)
[2019-07-25] MEDS ORDERED: amLODIPine 10 MG TABLET PO SCH (09:00)
[2019-07-25] MEDS ORDERED: ASPIRIN EC 81 MG TABLET PO SCH (09:00)
[2019-07-25] MEDS ORDERED: PANTOPRAZOLE 40 MG TABLET PO SCH (09:00)
[2019-07-25] MEDS ORDERED: APIXABAN 2.5 MG TABLET PO SCH (09:00)
[2019-07-25] MEDS ORDERED: POLYETHYLENE GLYCOL POWDER 17 GM PACK PO SCH (09:00)
[2019-07-25 09:22] LABS: Basophils % 0.8 % (0.0-0.8); Eosinophils # 0.3 10*3/uL (0.0-0.87); Hematocrit 31.2 VOL% (35.7-47.0); Hemoglobin 10.1 GM/DL (12.0-16.0); Immature Granulocytes % 0.4 %; Immature Granulocytes Absolute 0.02 #; Lymphocytes # 2.1 10*3/uL (1.4-4.0); Lymphocytes % 40.8 % (21.3-54.2); Mean Corpuscular HGB Conc 32.4 GM/DL (32-36); Mean Corpuscular Volume 91.5 FL (87-102); Mean Platelet Volume 11.2 FL (9.6-12.0); Monocytes % 12.8 % (1.7-12.7); Neutrophils % 40.2 % (38.7-73.9); Platelet Count 199 T/CUMM (130-400); Red Blood Count 3.41 MC/CUMM (3.8-5.5); Red Cell Distribution Width 14.9 % (9.3-17.3); White Blood Count 5.2 T/CUMM (4-12)
[2019-07-25] MEDS: ASCORBIC ACID 500 MG TABLET PO SCH (09:36)
[2019-07-25] MEDS: PANTOPRAZOLE 40 MG TABLET PO SCH (09:36)
[2019-07-25] MEDS: TERAZOSIN 1 MG CAPSULE PO SCH (09:36)
[2019-07-25] MEDS: carvediloL 25 MG TABLET PO SCH (09:37)
[2019-07-25] MEDS: DILTIAZEM 60 MG TABLET PO SCH (09:37)
== END 2019-07-25 12:06 | disposition home or self-care (01) ==
LOC: EDBD → EDUNIT# → N.ED 11:29 → N.EDINP 11:29 → N.TELEN 14:05
PROVIDERS: ADMIT Internal Medicine; ATTEND Internal Medicine

== ENCOUNTER 2021-02-07 09:15 | Observation (INO) ==
[2021-02-07] MEDS ORDERED: DILTIAZEM 50 MG/10 ML VIAL IV ONE (09:36)
[2021-02-07] MEDS ORDERED: DILTIAZEM 100 MG VIAL.ADD IV ONE (09:36)
[2021-02-07] MEDS ORDERED: DILTIAZEM 50 MG/10 ML VIAL IV STA (09:36)
[2021-02-07 09:43] LABS: Basophils % 0.6 % (0.0-0.8); Eosinophils # 0.3 10*3/uL (0.0-0.87); Hemoglobin 9.5 GM/DL (12.0-16.0); Immature Granulocytes % 0.9 %; Immature Granulocytes Absolute 0.04 #; Lymphocytes # 1.9 10*3/uL (1.4-4.0); Lymphocytes % 40.7 % (21.3-54.2); Mean Corpuscular HGB Conc 31.7 GM/DL (32-36); Mean Corpuscular Volume 90.6 FL (87-102); Mean Platelet Volume 10.5 FL (9.6-12.0); Monocytes % 17.5 % (1.7-12.7); Neutrophils % 34.3 % (38.7-73.9); Platelet Count 171 T/CUMM (130-400); Red Blood Count 3.31 MC/CUMM (3.8-5.5); Red Cell Distribution Width 14.9 % (9.3-17.3); White Blood Count 4.6 T/CUMM (4-12)
[2021-02-07] MEDS: DILTIAZEM INJ 100 MG in SODIUM CHLORIDE 0.9% 100 ML IV SCH (09:47)
[2021-02-07] MEDS ORDERED: MORPHINE 2 MG/1 ML SYRINGE IV STA (10:00)
[2021-02-07 10:01] LABS: Albumin 3.1 G/DL (3.4-5.0); Bilirubin,Total 0.4 MG/DL (0.20-1.00); Calcium 8.8 MG/DL (8.5-10.1); Osmolality,Calculated 287.2 MOS/KG (273-304); Potassium 3.5 MMOL/L (3.5-5.1); Total Protein 6.8 G/DL (6.4-8.2)
[2021-02-07] MEDS ORDERED: MORPHINE 2 MG/1 ML SYRINGE ONE (10:01)
[2021-02-07 10:06] LABS: Band Neutrophils 2 % (0-10); Eosinophils 9 % (0-10); Lymphocytes 46 % (20-55); Segmented Neutrophils 28 % (50-85); Total Cells Counted 100
[2021-02-07 10:07] LABS: Atypical Lymphocytes Few; Hypochromasia 1+; Microcytosis 1+
[2021-02-07 10:08] LABS: Platelet Estimate Adequate; Polychromasia Slight
[2021-02-07 11:18] LABS: Bacteria,Urine Many /HPF (Few); Bilirubin,Urine Negative (Negative); Blood, Urine Small mg/dL (Negative); Glucose,Urine (UA) Negative (Negative); Ketones,Urine Negative (Negative); Mucus,Urine Occasional /LPF (Occasional); Nitrite,Urine Negative (Negative); Protein,Urine 100 MG/DL; RBC,Urine 18 /HPF (0-4); Squamous Epithelial Cell,Urine Occasional /HPF (0-10); Urine Appearance CLOUDY (Clear); Urine Specific Gravity 1.017 (1.001-1.035); Urine Urobilinogen < 2.0 EU/DL (0.2-1.0)
[2021-02-07 11:19] LABS: Urine Color Yellow (Yellow)
[2021-02-07] MEDS ORDERED: ALBUTEROL 2.5 MG/3 ML NEB RESP TX PRN (11:43)
[2021-02-07] MEDS ORDERED: DEXTROSE 50% 25 GM/50 ML VIAL IV PRN (11:43)
[2021-02-07] MEDS ORDERED: hydrALAZINE 20 MG/1 ML VIAL IV PRN (11:43)
[2021-02-07] MEDS ORDERED: ACETAMINOPHEN 325 MG TABLET PO PRN (11:43)
[2021-02-07] MEDS ORDERED: GLUCAGON 1 MG VIAL IM PRN (11:43)
[2021-02-07] MEDS ORDERED: MORPHINE 2 MG/1 ML SYRINGE IV PRN (11:43)
[2021-02-07] MEDS ORDERED: ONDANSETRON 4 MG/2 ML VIAL IV PRN (11:43)
[2021-02-07] MEDS: HEPARIN 5,000 UNIT/1 ML VIAL SUBCUT SCH (13:08)
[2021-02-07] MEDS: cefTRIAXone 1,000 MG in SODIUM CHLORIDE 0.9% 100 ML IV SCH (15:20)
[2021-02-07] MEDS: INSULIN REGULAR 100 UNIT/ML SUBCUT SCH ×2 (20:07→20:09)
[2021-02-08] MEDS: HEPARIN 5,000 UNIT/1 ML VIAL SUBCUT SCH (00:47)
[2021-02-08 06:08] LABS: Basophils % 0.6 % (0.0-0.8); Eosinophils # 0.4 10*3/uL (0.0-0.87); Eosinophils % 7.7 % (0.00-10.9); Hematocrit 27.7 VOL% (35.7-47.0); Hemoglobin 8.6 GM/DL (12.0-16.0); Immature Granulocytes % 0.6 %; Immature Granulocytes Absolute 0.03 #; Lymphocytes # 2.2 10*3/uL (1.4-4.0); Lymphocytes % 46.8 % (21.3-54.2); Mean Corpuscular Volume 90.8 FL (87-102); Mean Platelet Volume 11.6 FL (9.6-12.0); Monocytes % 12.4 % (1.7-12.7); Neutrophils % 31.9 % (38.7-73.9); Platelet Count 163 T/CUMM (130-400); Red Blood Count 3.05 MC/CUMM (3.8-5.5); Red Cell Distribution Width 15.1 % (9.3-17.3); White Blood Count 4.7 T/CUMM (4-12)
[2021-02-08 06:29] LABS: Alanine Aminotransferase 16 U/L (13-56); Albumin 2.9 G/DL (3.4-5.0); Alkaline Phosphatase 143 U/L (45-117); Aspartate Amino Transferase 15 U/L (0-37); Bilirubin,Total < 0.39 MG/DL (0.20-1.00); Blood Urea Nitrogen 39 MG/DL (7-18); Calcium 9.5 MG/DL (8.5-10.1); Carbon Dioxide 28 MMOL/L (21-32); Estimated Glom Filtration Rate 7 ML/MIN; Glucose 220 MG/DL (74-106); Osmolality,Calculated 290.7 MOS/KG (273-304); Potassium 4.1 MMOL/L (3.5-5.1); Sodium 138 MMOL/L (136-145); Total Protein 6.3 G/DL (6.4-8.2)
[2021-02-08 06:51] LABS: Eosinophils 6 % (0-10); Lymphocytes 47 % (20-55); Segmented Neutrophils 33 % (50-85); Total Cells Counted 100
[2021-02-08 06:52] LABS: Atypical Lymphocytes Few; Hypochromasia 1+; Microcytosis 1+; Platelet Estimate Adequate
[2021-02-08] MEDS: ISOSORBIDE MONONITRATE 60 MG TABLET PO SCH (08:51)
[2021-02-08] MEDS: carvediloL 25 MG TABLET PO SCH ×2 (08:51→18:16)
[2021-02-08] MEDS: TERAZOSIN 1 MG CAPSULE PO SCH ×2 (08:51→22:20)
[2021-02-08] MEDS: ASPIRIN EC 81 MG TABLET PO SCH (08:51)
[2021-02-08] MEDS: PANTOPRAZOLE 40 MG TABLET PO SCH (08:51)
[2021-02-08] MEDS: ATORVASTATIN 20 MG TABLET PO SCH (08:51)
[2021-02-08] MEDS: GABAPENTIN 600 MG TABLET PO SCH ×3 (08:52→22:20)
[2021-02-08] MEDS: DILTIAZEM CD 120 MG CAPSULE PO SCH ×2 (08:52→22:21)
[2021-02-08] MEDS: APIXABAN 2.5 MG TABLET PO SCH ×2 (08:52→22:20)
[2021-02-08] MEDS: INSULIN GLARGINE 100 UNIT/ML SUBCUT SCH (08:54)
[2021-02-08] MEDS: POLYETHYLENE GLYCOL POWDER 17 GM PACK PO SCH (08:57)
[2021-02-08] MEDS: INSULIN REGULAR 100 UNIT/ML SUBCUT SCH ×3 (08:57→16:50)
[2021-02-08] MEDS: DILTIAZEM INJ 100 MG in SODIUM CHLORIDE 0.9% 100 ML IV SCH (09:16)
[2021-02-08 09:31] LABS: % Iron Saturation 30.1 % (18-50)
[2021-02-08 09:34] LABS: Folate 7.63 NG/ML (5.38-24.0)
[2021-02-08] MEDS: cefTRIAXone 1,000 MG in SODIUM CHLORIDE 0.9% 100 ML IV SCH (14:48)
[2021-02-08] MEDS ORDERED: PHENYTOIN ER 100 MG CAPSULE PO SCH (21:00)
[2021-02-08] MEDS: ASCORBIC ACID 500 MG TABLET PO SCH (22:20)
[2021-02-09] MEDS: INSULIN REGULAR 100 UNIT/ML SUBCUT SCH ×2 (02:00→09:04)
[2021-02-09 05:16] LABS: Basophils % 0.7 % (0.0-0.8); Eosinophils # 0.3 10*3/uL (0.0-0.87); Hematocrit 29.3 VOL% (35.7-47.0); Hemoglobin 8.9 GM/DL (12.0-16.0); Immature Granulocytes % 1.1 %; Immature Granulocytes Absolute 0.06 #; Lymphocytes # 2.7 10*3/uL (1.4-4.0); Lymphocytes % 47.3 % (21.3-54.2); Mean Corpuscular HGB Conc 30.4 GM/DL (32-36); Mean Corpuscular Volume 92.4 FL (87-102); Mean Platelet Volume 10.7 FL (9.6-12.0); Neutrophils % 33.9 % (38.7-73.9); Platelet Count 188 T/CUMM (130-400); Red Blood Count 3.17 MC/CUMM (3.8-5.5); White Blood Count 5.7 T/CUMM (4-12)
[2021-02-09 05:43] LABS: Osmolality,Calculated 297.5 MOS/KG (273-304); Potassium 4.3 MMOL/L (3.5-5.1)
[2021-02-09 05:48] LABS: Band Neutrophils 1 % (0-10); Eosinophils 5 % (0-10); Hypochromasia 1+; Lymphocytes 51 % (20-55); Segmented Neutrophils 30 % (50-85); Total Cells Counted 100
[2021-02-09 05:49] LABS: Microcytosis 1+; Ovalocytes Slight; Tear Drop Cells Slight
[2021-02-09 05:50] LABS: Atypical Lymphocytes Few; Platelet Estimate Adequate
[2021-02-09] MEDS: PANTOPRAZOLE 40 MG TABLET PO SCH (09:02)
[2021-02-09] MEDS: ASCORBIC ACID 500 MG TABLET PO SCH (09:02)
[2021-02-09] MEDS: ISOSORBIDE MONONITRATE 60 MG TABLET PO SCH (09:02)
[2021-02-09] MEDS: DILTIAZEM CD 120 MG CAPSULE PO SCH (09:03)
[2021-02-09] MEDS: ATORVASTATIN 20 MG TABLET PO SCH (09:03)
[2021-02-09] MEDS: GABAPENTIN 600 MG TABLET PO SCH (09:03)
[2021-02-09] MEDS: carvediloL 25 MG TABLET PO SCH (09:03)
[2021-02-09] MEDS: TERAZOSIN 1 MG CAPSULE PO SCH (09:03)
[2021-02-09] MEDS: ASPIRIN EC 81 MG TABLET PO SCH (09:03)
[2021-02-09] MEDS: APIXABAN 2.5 MG TABLET PO SCH (09:03)
[2021-02-09] MEDS: INSULIN GLARGINE 100 UNIT/ML SUBCUT SCH (09:04)
[2021-02-09] MEDS: POLYETHYLENE GLYCOL POWDER 17 GM PACK PO SCH (09:04)
[2021-02-09 11:20] VITALS: BP 153/76
[2021-02-11 08:16] LABS: Phenytoin Free Serum < 0.8 mcg/mL (1.0 - 2.0); Phenytoin Total Serum (MAYO) < 0.8 mcg/mL
== END 2021-02-09 10:37 | disposition home or self-care (01) ==
LOC: EDUNIT# → N.EDINP 09:15 → N.ED 09:15 → SUATTDRO 11:43 → N.TELES 17:35
PROVIDERS: ADMIT Internal Medicine Geriatric Medicine; ATTEND Internal Medicine

== ENCOUNTER 2021-12-12 10:00 | Observation (INO) ==
[2021-12-12 10:17] LABS: Basophils # 0.1 10*3/uL (0.0-0.2); Basophils % 0.8 % (0.0-0.8); Eosinophils # 0.3 10*3/uL (0.0-0.87); Eosinophils % 4.2 % (0.00-10.9); Hematocrit 36.6 VOL% (35.7-47.0); Hemoglobin 11.6 GM/DL (12.0-16.0); Immature Granulocytes % 0.7 %; Immature Granulocytes Absolute 0.05 #; Lymphocytes # 1.6 10*3/uL (1.4-4.0); Lymphocytes % 21.3 % (21.3-54.2); Mean Corpuscular HGB Conc 31.7 GM/DL (32-36); Mean Corpuscular Volume 93.4 FL (87-102); Mean Platelet Volume 10.2 FL (9.6-12.0); Monocytes # 0.7 10*3/uL (0.11-0.8); Monocytes % 9.1 % (1.7-12.7); NRBC # 0.03 10*3/uL; Neutrophils % 63.9 % (38.7-73.9); Platelet Count 222 T/CUMM (130-400); Red Blood Count 3.92 MC/CUMM (3.8-5.5); Red Cell Distribution Width 15.9 % (9.3-17.3); White Blood Count 7.6 T/CUMM (4-12)
[2021-12-12] MEDS ORDERED: DILTIAZEM 25 MG/5 ML VIAL IV STA (10:17)
[2021-12-12] MEDS ORDERED: DILTIAZEM 100 MG VIAL.ADD IV ONE (10:17)
[2021-12-12] MEDS ORDERED: DILTIAZEM 25 MG/5 ML VIAL IV ONE (10:17)
[2021-12-12] MEDS ORDERED: MORPHINE 2 MG/1 ML SYRINGE IV STA (10:19)
[2021-12-12 10:33] LABS: Alanine Aminotransferase 15 U/L (13-56); Alkaline Phosphatase 105 U/L (45-117); Aspartate Amino Transferase 14 U/L (0-37); Bilirubin,Total < 0.39 MG/DL (0.20-1.00); Blood Urea Nitrogen 15 MG/DL (7-18); Calcium 10.1 MG/DL (8.5-10.1); Carbon Dioxide 25 MMOL/L (21-32); Chloride 101 MMOL/L (98-107); Glucose 271 MG/DL (74-106); Osmolality,Calculated 283.8 MOS/KG (273-304); Potassium 3.5 MMOL/L (3.5-5.1); Sodium 137 MMOL/L (136-145); Total Protein 6.8 G/DL (6.4-8.2)
[2021-12-12] MEDS: DILTIAZEM INJ 100 MG in SODIUM CHLORIDE 0.9% 100 ML IV SCH (10:47)
[2021-12-12] MEDS ORDERED: SODIUM CHLORIDE 0.9% 500 ML IV STA (10:48)
[2021-12-12] MEDS ORDERED: ACETAMINOPHEN 325 MG TABLET PO PRN (12:04)
[2021-12-12] MEDS ORDERED: GLUCAGON 1 MG VIAL IM PRN (12:04)
[2021-12-12] MEDS ORDERED: DEXTROSE 10% 250 ML BAG IV PRN (12:04)
[2021-12-12] MEDS ORDERED: hydrALAZINE 20 MG/1 ML VIAL IV PRN (12:04)
[2021-12-12] MEDS ORDERED: ONDANSETRON 4 MG/2 ML VIAL IV PRN (12:04)
[2021-12-12] MEDS ORDERED: MORPHINE 2 MG/1 ML SYRINGE IV PRN (12:04)
[2021-12-12] MEDS: INSULIN LISPRO 100 UNIT/ML SUBCUT SCH ×2 (17:55→21:49)
[2021-12-12] MEDS ORDERED: ATORVASTATIN 20 MG TABLET PO SCH (21:00)
[2021-12-12] MEDS ORDERED: GABAPENTIN 300 MG CAPSULE PO SCH (21:00)
[2021-12-12] MEDS: carvediloL 25 MG TABLET PO SCH (21:49)
[2021-12-12] MEDS: APIXABAN 2.5 MG TABLET PO SCH (21:49)
[2021-12-13 05:31] LABS: Basophils % 0.5 % (0.0-0.8); Eosinophils # 0.5 10*3/uL (0.0-0.87); Eosinophils % 6.1 % (0.00-10.9); Hemoglobin 10.6 GM/DL (12.0-16.0); Immature Granulocytes % 0.4 %; Immature Granulocytes Absolute 0.03 #; Lymphocytes # 1.7 10*3/uL (1.4-4.0); Lymphocytes % 22.6 % (21.3-54.2); Mean Corpuscular HGB Conc 31.2 GM/DL (32-36); Mean Corpuscular Volume 94.7 FL (87-102); Mean Platelet Volume 10.3 FL (9.6-12.0); Monocytes # 0.8 10*3/uL (0.11-0.8); Monocytes % 10.7 % (1.7-12.7); NRBC # 0.02 10*3/uL; Neutrophils % 59.7 % (38.7-73.9); Platelet Count 190 T/CUMM (130-400); Red Blood Count 3.59 MC/CUMM (3.8-5.5); Red Cell Distribution Width 16.2 % (9.3-17.3); White Blood Count 7.5 T/CUMM (4-12)
[2021-12-13 05:53] LABS: Osmolality,Calculated 282.4 MOS/KG (273-304); Potassium 3.8 MMOL/L (3.5-5.1)
[2021-12-13] MEDS ORDERED: amLODIPine 10 MG TABLET PO SCH (09:00)
[2021-12-13] MEDS ORDERED: PANTOPRAZOLE 40 MG TABLET PO SCH (09:00)
[2021-12-13] MEDS ORDERED: AMIODARONE 200 MG TABLET PO SCH (09:00)
[2021-12-13] MEDS: APIXABAN 2.5 MG TABLET PO SCH (09:23)
[2021-12-13] MEDS: INSULIN LISPRO 100 UNIT/ML SUBCUT SCH ×2 (09:23→13:13)
[2021-12-13] MEDS: carvediloL 25 MG TABLET PO SCH (09:23)
[2021-12-13] MEDS: DILTIAZEM INJ 100 MG in SODIUM CHLORIDE 0.9% 100 ML IV SCH (09:32)
[2021-12-13 11:24] VITALS: BP 160/70
== END 2021-12-13 13:58 | disposition home or self-care (01) ==
LOC: N.ED 10:00 → N.EDINP 12:04 → SUATTDRO 12:04 → INTOOBSV 12:04 → N.TELEN 13:00
PROVIDERS: ADMIT Internal Medicine; ATTEND Family Medicine

== ENCOUNTER 2021-12-21 09:49 | Observation (INO) ==
[2021-12-21] MEDS ORDERED: ALBUTEROL NEB SOLN 5 MG/ML 20 ML/BOTTLE CONT NEB STA (10:16)
[2021-12-21] MEDS ORDERED: FUROSEMIDE 40 MG/4 ML VIAL IV STA (10:21)
[2021-12-21 10:52] LABS: Basophils # 0.1 10*3/uL (0.0-0.2); Basophils % 0.7 % (0.0-0.8); Eosinophils # 0.2 10*3/uL (0.0-0.87); Eosinophils % 1.8 % (0.00-10.9); Hematocrit 35.4 VOL% (35.7-47.0); Hemoglobin 10.9 GM/DL (12.0-16.0); Immature Granulocytes % 0.4 %; Immature Granulocytes Absolute 0.04 #; Lymphocytes # 1.1 10*3/uL (1.4-4.0); Lymphocytes % 11.6 % (21.3-54.2); Mean Corpuscular HGB Conc 30.8 GM/DL (32-36); Mean Corpuscular Volume 93.7 FL (87-102); Mean Platelet Volume 11.2 FL (9.6-12.0); Monocytes # 0.8 10*3/uL (0.11-0.8); Monocytes % 8.8 % (1.7-12.7); Neutrophils % 76.7 % (38.7-73.9); Platelet Count 170 T/CUMM (130-400); Red Blood Count 3.78 MC/CUMM (3.8-5.5); Red Cell Distribution Width 15.5 % (9.3-17.3); White Blood Count 9.2 T/CUMM (4-12)
[2021-12-21 11:20] LABS: Albumin 3.2 G/DL (3.4-5.0); Bilirubin,Total 0.7 MG/DL (0.20-1.00); Calcium 10.3 MG/DL (8.5-10.1); Potassium 4.4 MMOL/L (3.5-5.1); Total Protein 7.2 G/DL (6.4-8.2)
[2021-12-21] MEDS ORDERED: ONDANSETRON 4 MG/2 ML VIAL IV PRN (12:01)
[2021-12-21] MEDS ORDERED: DEXTROSE 10% 250 ML BAG IV PRN ×2 (12:01→13:03)
[2021-12-21] MEDS ORDERED: GLUCAGON 1 MG VIAL IM PRN (12:01)
[2021-12-21 13:19] LABS: Arterial Base Excess iSTAT 4 MMOL/L (-2.5-2.5); Arterial Bicarbonate iSTAT 27.9 MMOL/L (20-26); Arterial O2 Saturation iSTAT 97 % (95-100); Arterial PCO2 iSTAT 40 MM HG (35-48); Arterial PO2 iSTAT 90 MM HG (80-95); Arterial Total CO2 iSTAT 29 MMO/L (23-27); Arterial pH iSTAT 7.448 (7.35-7.45)
[2021-12-21] MEDS: FUROSEMIDE 40 MG/4 ML VIAL IV SCH (15:31)
[2021-12-21] MEDS: INSULIN LISPRO 100 UNIT/ML SUBCUT SCH ×2 (15:37→21:41)
[2021-12-21] MEDS: SEVELAMER CARBONATE 800 MG TABLET PO SCH (16:33)
[2021-12-21] MEDS: ALBUTEROL 2.5 MG/3 ML NEB RESP TX SCH ×2 (16:36→20:01)
[2021-12-21] MEDS ORDERED: GABAPENTIN 300 MG CAPSULE PO SCH (21:00)
[2021-12-21] MEDS ORDERED: HEPARIN 5,000 UNIT/1 ML VIAL SUBCUT SCH (21:00)
[2021-12-21] MEDS: APIXABAN 2.5 MG TABLET PO SCH (21:42)
[2021-12-21] MEDS: carvediloL 25 MG TABLET PO SCH (21:42)
[2021-12-22] MEDS: ALBUTEROL 2.5 MG/3 ML NEB RESP TX SCH ×3 (01:54→16:54)
[2021-12-22 05:01] LABS: Basophils # 0.1 10*3/uL (0.0-0.2); Eosinophils # 0.2 10*3/uL (0.0-0.87); Eosinophils % 2.7 % (0.00-10.9); Hemoglobin 9.9 GM/DL (12.0-16.0); Immature Granulocytes % 0.3 %; Immature Granulocytes Absolute 0.02 #; Lymphocytes # 1.5 10*3/uL (1.4-4.0); Lymphocytes % 21.7 % (21.3-54.2); Mean Corpuscular HGB Conc 30.9 GM/DL (32-36); Mean Corpuscular Volume 92.8 FL (87-102); Monocytes # 0.7 10*3/uL (0.11-0.8); Monocytes % 9.3 % (1.7-12.7); Platelet Count 164 T/CUMM (130-400); Red Blood Count 3.45 MC/CUMM (3.8-5.5); Red Cell Distribution Width 15.6 % (9.3-17.3)
[2021-12-22 05:24] LABS: Albumin 2.7 G/DL (3.4-5.0); Bilirubin,Total 0.5 MG/DL (0.20-1.00); Calcium 10.1 MG/DL (8.5-10.1); Osmolality,Calculated 295.4 MOS/KG (273-304); Potassium 4.1 MMOL/L (3.5-5.1)
[2021-12-22] MEDS: SEVELAMER CARBONATE 800 MG TABLET PO SCH ×2 (08:49→13:06)
[2021-12-22] MEDS: FUROSEMIDE 40 MG/4 ML VIAL IV SCH (08:50)
[2021-12-22] MEDS: carvediloL 25 MG TABLET PO SCH (08:50)
[2021-12-22] MEDS: APIXABAN 2.5 MG TABLET PO SCH (08:50)
[2021-12-22] MEDS ORDERED: PANTOPRAZOLE 40 MG TABLET PO SCH (09:00)
[2021-12-22] MEDS ORDERED: AMIODARONE 200 MG TABLET PO SCH ×2 (09:00)
[2021-12-22] MEDS ORDERED: amLODIPine 10 MG TABLET PO SCH (09:00)
[2021-12-22] MEDS ORDERED: DILTIAZEM 30 MG TABLET PO SCH (10:16)
[2021-12-22] MEDS: INSULIN LISPRO 100 UNIT/ML SUBCUT SCH ×2 (10:38→11:56)
[2021-12-22 15:51] VITALS: BP 146/107
== END 2021-12-22 16:42 | disposition home or self-care (01) ==
LOC: N.2W 09:49 → N.ED 09:49 → N.2W 13:45
PROVIDERS: ADMIT Internal Medicine; ATTEND Internal Medicine